=== PATIENT | female | born 1955 | race Caucasian/White ===

== ENCOUNTER 2018-04-23 08:01 | Inpatient (IN) ==
--- NOTE | 2018-04-23 07:17 | Anesthesia Evaluation PreOp ---
Date of Encounter: 04/23/18 Time of Encounter: 08:24 - Past History Planned Operation: Right reverse total shoulder Cardiac History: HTN Pulmonary History: Former smoker, COPD BUDGET COORDINATOR History: Other (anxiety depression) Other Medical History: Thyroid (hypo), Other (obesity BMI 38) Anesthesia History: No Prior Anesthetic Complications, Past Anesthesia (bilateral total knee, left total hip c section,) : No Alcohol Use: occasionally Drug use: none Medications and Allergies Docusate [Colace] 100 mg PO BID 10 Days #20 capsule 04/22/18 [Rx] OxyCODONE Immed Rel [Roxicodone 5 MG] 5 mg PO Q6HR PRN 7 Days #28 tablet 04/22/18 [Rx] Allergy/AdvReac Type Severity Reaction Status Date / Time codeine AdvReac See Verified 04/11/18 10:47 Comments - Meds/Allergy Pre-op Review Medications Reviewed: Yes Allergies Reviewed: Yes Beta Blockers on Current Med List: Yes (Nadolol ) If Beta Blockers taken, Date/Time (Last Dose taken): 0500 Anesthesia Results - Labs Laboratory Tests 04/11/18 04/11/18 04/11/18 10:55 10:55 10:55 WBC 5.7 Hgb 14.3 Hct 42.5 Plt Count 199 PT 10.7 INR 1.0 APTT 33.2 Sodium 134 L Potassium Chloride 99 Carbon Dioxide 30 H BUN 9 Creatinine 0.77 Est GFR (Non-Af Amer) > 60 04/12/18 10:44 WBC Hgb Hct Plt Count PT INR APTT Sodium Potassium 5.2 H Chloride Carbon Dioxide BUN Creatinine Est GFR (Non-Af Amer) - Imaging EKG: report reviewed (SINUS RHYTHM) Anesthesia Exam Vital Signs/O2 Sat/Glucose, Most Recent Temp Pulse Resp BP Pulse Ox 97.5 F L 56 18 126/73 97 04/23/18 08:23 04/23/18 08:23 04/23/18 08:23 04/23/18 08:23 04/23/18 08:23 Weight: 77 kg NPO (# of Hours): > 8 hr - HEENT Pupil (Motor): Pupils equal Mallampati: II Teeth: Normal Oral Opening: Greater than 3 - BUDGET COORDINATOR LOC: Oriented BUDGET COORDINATOR Motor: Normal RUE, Normal LUE, Normal RLE, Normal LLE, Normal Face BUDGET COORDINATOR Sensory: Normal: RUE, LUE, RLE, LLE, Face - Cardiac Rhythm: Regular Murmur: None - Pulmonary Breath Sounds: bilateral Clear Respiratory Effort: Symmetrical Anesthesia Assess/Plan ASA Score: 3 (COPD, HTN) Level of consciousness: Cooperative, Oriented Anesthetic Plan: General, Regional Nerve Block Regional Nerve Block Plan: Supraclavicular, Supracervical Plexus, Intercostobracial Monitoring Plan: Standard Monitors Recovery Plan: PACU
--- NOTE | 2018-04-23 08:07 | History & Physical Report ---
Date of Encounter: 04/23/18 Time of Encounter: 08:07 24 Hour HP Update - Instructions Instructions: If the History and Physical is less than 30 days old and was completed prior to A.M. admission and or procedure and has NOT been updated on calendar day of procedure please complete this update prior to performing procedure. - Update Patient reports changes in Medical Condition: No Changes in examination, assessment, or condition: No Changes in Medication: No Preop tests/diagnostics Reviewed: Yes Surgery Remains Indicated: Yes Consent for Planned Operative Procedure(s) Verified: Yes - Pre-Operative Checklist Preoperative Checklist Indicated: No Prophylactic Antibiotic Ordered: Yes Is VTE Prophylaxis Indicated?: Yes
[2018-04-23] MEDS ORDERED: *HR* Promethazine 25 MG/ML VIAL IVP PRN (08:45)
[2018-04-23] MEDS ORDERED: Ringers Solution, Lactated 1,000 ML IVC SCH ×2 (08:45→11:49)
[2018-04-23] MEDS ORDERED: *HR* OxyCODONE Immed Rel 5 MG TABLET PO PRN (08:45)
[2018-04-23] MEDS ORDERED: Ondansetron 4 MG/2 ML VIAL IVP ONE (08:45)
[2018-04-23] MEDS ORDERED: Ketorolac 15 MG/ML VIAL IVP ONE (08:45)
[2018-04-23] MEDS ORDERED: *HR* HYDROmorphone (PF) 1 MG/ML SYRINGE IVP PRN (08:45)
[2018-04-23] MEDS ORDERED: Acetaminophen IV 1,000 MG/100 ML INFUS..BTL IVPB ONE (08:46)
[2018-04-23] MEDS ORDERED: Famotidine 20 MG/2 ML VIAL IVP ONE (08:46)
[2018-04-23] MEDS ORDERED: Acetaminophen IV 1,000 MG/100 ML INFUS..BTL ONE (08:50)
[2018-04-23] MEDS ORDERED: Famotidine 20 MG/2 ML VIAL ONE (08:50)
--- NOTE | 2018-04-23 09:14 | Discharge Summary ---
- NOTES TO OUTPATIENT PROVIDER Notes to Outpatient Provider: Needs to have sodium rechecked on 04/25/18 and follow up with PCP this week for further management. Orders not resulted at time of discharge: Pending orders 04/23/18 00:01 XR shoulder complete RT [XR] Routine H/H [Hemoglobin and Hematocrit] [HEME] Routine 04/23/18 07:18 US anesthesia pain block [US] Routine Date of Encounter: 04/24/18 Time of Encounter: 12:50 - Discharge Diagnosis (1) Status post reverse total arthroplasty of right shoulder Priority: Primary Status: Acute (2) Unspecified rotator cuff tear or rupture of right shoulder, not specified as traumatic Priority: Primary Status: Acute Qualifiers: Rotator cuff tear extent: unspecified tear extent Qualified Code(s): M75.101 - Unspecified rotator cuff tear or rupture of right shoulder, not specified as traumatic (3) Hypertension Priority: Secondary Status: Acute Qualifiers: Hypertension type: unspecified Qualified Code(s): I10 - Essential (primary) hypertension (4) Hypothyroidism Priority: Secondary Status: Acute Qualifiers: Hypothyroidism type: unspecified Qualified Code(s): E03.9 - Hypothyroidism, unspecified (5) Obesity (BMI 30-39.9) Priority: Secondary Status: Acute (6) Anxiety and depression Priority: Secondary Status: Acute - Hospital Course Hospital course: Ms. Hernandez is a 63 year old female status post right Total Shoulder Replacment Reverse 04/23/18 with history of rotator cuff tear, HTN, hypothyroidism, depression/anxiety. She also has h/o bilateral TKR which she states has caused a leg length discrepancy and a limp from this. She typically uses a cane. Therapist this morning noted patient was unsteady on her feet and originally recommended ECF placement for further rehab. On reevaluation this afternoon therapist changed recommendations to home therapy as she is progressing back to her baseline gait and her will be available to help her. I did discuss with her at length the risks if she would fall and she expressed understanding but is adamant that she go home with home therapy. Based on therapists updated recommendations she is stable for discharge home. There was a delay this morning in labs being drawn. On review Na noted to be 127, it was 134 preoperatively. She is not symptomatic at this time, no evidence of confusion. I recommended to patient that she should stay overnight with this low of a Na level for further observation and reviewed the risks. She states she understood the risks and states she chronically has issues with low Na. She is again adamant that she will not stay another night. I discussed this with Dr. Stock who is agreeable to the patient leaving. She will receive a dose of Na before leaving and a script to continue Na. Will have HH recheck her Na tomorrow and will set up follow up appt with PCP this week for further management. Patient seen at bedside, without complaints other than very upset about original recommendation for ECF, again adamant that she wants to go home and will not stay another night. A&O x 3 Afebrile, vital signs stable. Labs reviewed. H/H - 12.1/36.3. Na 127 asymptomatic Pain control: adequate Participating in PT. All questions and concerns addressed. Educated on use of incentive spirometer. Encouraged ambulation and proper hydration. Patient educated on post-operative restrictions and post-operative care. Assessment and plan: Continue with postoperative care Discharge plan: Home with home therapy, discharge today. - Time Spent with Patient Total time spent providing and/or coordinating discharge services: - Discharge Medications Home Medications: Docusate [Colace] 100 mg PO BID 10 Days #20 capsule 04/22/18 [Rx] OxyCODONE Immed Rel [Roxicodone 5 MG] 5 mg PO Q6HR PRN 7 Days #28 tablet [Rx] Albuterol Sulfate [Albuterol Inhaler] 2 puff IH Q4HR PRN 04/23/18 [History] Aspirin 325 mg PO DAILY 04/23/18 [History] Chlordiazepoxide [Librium] 10 mg PO HS 04/23/18 [History] Chlordiazepoxide [Librium] 20 mg PO DAILY 04/23/18 [History] DiphenhydraMINE [Benadryl] 25 mg PO HS 04/23/18 [History] Ipratropium/Albuterol Neb [Duoneb] 3 ml IH Q6HR PRN 04/23/18 [History] Levothyroxine [Synthroid] 125 mcg PO 0630 04/23/18 [History] Lisinopril [Zestril] 40 mg PO DAILY 04/23/18 [History] Nadolol [Corgard] 40 mg PO QPM 04/23/18 [History] Naproxen [Naprosyn] 250 mg PO BID 04/23/18 [History] Paroxetine [Paxil] 30 mg PO DAILY 04/23/18 [History] Sodium Chloride [Sodium Chloride Tab] 1 gm PO DAILY tablet 04/24/18 [Rx] Allergies/Adverse Reactions: Allergy/AdvReac Type Severity Reaction Status Date / Time No Known Allergies Allergy Verified 04/23/18 08:52 Date of admission: 04/23/17 Primary care physician: Carlos Grace MD Discharging clinician: Mani Stock Anticipated date of discharge: 04/24/18 - Patient Status Disposition: Home Health Service Condition: Good Functional capacity at discharge: uses cane/walker Overall status at discharge: patient is back to baseline - Discharge Instructions Follow Up With: Carlos Grace MD [Primary Care Provider] - - Diet and Activity Activity: ambulate only with your walker (cane) Diet: advance to your usual diet
--- NOTE | 2018-04-23 09:36 | Anesthesia Procedures ---
Date of Encounter: 04/23/18 Time of Encounter: 09:32 Procedures: Anesthesia - Nerve Block Procedure Date: 04/23/18 Time: 09:32 Allergies/Adv Reactions: No Known Allergies Allergy (Verified 04/23/18 08:52) Pre-op Diagnosis: right shoulder rotator cuff arthropathy Surgical Procedure: right shoulder reverse ball Checklist: Correct Patient Identifier, Correct procedure, History checked Correct side: Right Blood Thinner: No Monitor Applied: EKG, BP, Pulse Oximetry Supplemental Oxygen via Nasal Cannula (L/min): 2 Sedation: Versed (mg): 2 Sedation: Fentanyl (mcg): 100 Indication: Post Op Analgesia Pre-op Neuro Deficits: No Block Type: Supraclavicular (30cc 0.5% ropi), Other (SCP 10cc 0.25% bupivicaine with clonidine) Catheter placed: No Sterile Technique: Yes Ultrasound used: Yes Anatomy identified: Yes Visual spread of Local: Yes Neuro Stimulation: No Blood on Needle Aspiration: No Smooth Injection of Local: Yes Pain with Injection of Local: No Prep: Chlorhexadine Needle: 22 x 50 mm Stimuplex Local: 0.25% Bupivicaine w/Clonidine 20 mcg/cc, Ropivacaine Volume (cc): 40 Number of Attempts: 1 Complications: None/effective block
[2018-04-23] MEDS ORDERED: EPHEDrine 50 MG/ML VIAL ONE (09:49)
--- NOTE | 2018-04-23 10:46 | Orthopedic Operative Note ---
Date of procedure: 04/23/18 Pre-op diagnosis: Right shoulder cuff tear arthropathy Post-op diagnosis: same Procedure: Procedure: Total Shoulder Replacment Reverse, right Estimated blood loss: 50 cc Hardware: Metal and polyethylene replacement: Arthrex 28, +2 , 30 mm screw glenoid baseplate, 4 locking 5.5 screw, 42+4 glenosphere, 12 apex humeral stem, poly insert 6 Exam Under anesthesia: Full motion no instability Procedural Notes: Irreparable tear subscap supraspinatus Operative procedure: The patient was brought to the operating room and placed on the operating room table. After general anesthesia was administered the operative shoulder was examined. Findings were noted. The patient was placed in the modified beachchair position. All pressure points were padded appropriately. And the head was stabilized in the neutral position. The operative extremity was prepped and draped in the sterile surgical fashion. The patient received IV antibiotics prior to skin incision. A standard deltopectoral approach was made to the operative shoulder. Incision was made to the skin and subcutaneous tissue,hemo stasis was obtained with Bovie cautery. Using careful blunt dissection the cephalic vein was identified and mobilized medially. The deltopectoral interval was developed and the clavipectoral fascia was incised. The subscap was irreparable. The humerus was dislocated patient noted to have irreparable tear supraspinatus tendon, and the humeral cut was made along the anatomic neck. Anterior and posterior Bankart retractors were placed to expose the glenoid. The glenoid guide was seated and the centering hole was made. It was reamed with the appropriate reamer. The 28, +2, 30 mm screw, baseplate was seated and secured with 4 locking 5.5 screw. The baseplate was irrigated and dried and the 42+4 Glenosphere was seated and secured with the Sosa taper. The Sosa taper was tested and found to be secure, glenosphere fixation was secondarily secured with the central screw. The humerus was redislocated and prepared with the diaphyseal reamers, followed by a broaching process up to the appropriate size 12 apex in the patient's anatomic version. The metaphyseal reamer was then utilized. Trial reduction found the shoulder to be relocatable. Trial components were removed and 12 apex stem was impacted in place in the patient's anatomic version. Trial reduction found the shoulder to be relocatable and stable with the appropriate 6. Trial component was removed and the real implant was seated and secured the shoulder was reduced. The shoulder had excellent motion and excellent stability and no evidence of dislocation. The deep tissue was irrigated with pulse irrigation. The PA close the shoulder. The deltopectoral interval was closed with a running #1 PDS suture, subcutaneous tissue was irrigated and closed with 0 PDS suture, the skin was closed with Dermabond. The patient was placed in a sterile dressing, abduction brace and extubated. The patient was then transferred to the recovery room in stable condition. Anesthesia: YNES Surgeon: Mani Stock Was there an patient assistant present: Yes Field Supervisor: Holly Evans Estimated blood loss (cc): 50 Condition: stable Disposition: PACU
[2018-04-23 11:28] LABS: Hematocrit 41.2 % (35.3-44.9); Hemoglobin 13.4 g/dL (11.5-15.4)
--- NOTE | 2018-04-23 11:37 | Anesthesia Evaluation Post Op ---
Date of Encounter: 04/23/18 Time of Encounter: 11:36 - Vital Signs Vital Signs: Vital Signs/O2 Sat/Glucose, Most Recent Temp Pulse Resp BP Pulse Ox 97.4 F L 61 16 151/76 98 04/23/18 11:10 04/23/18 11:20 04/23/18 11:20 04/23/18 11:20 04/23/18 11:20 - Lungs Lungs: Clear Ascult./Percussion - Airway Airway: Non-obstructed - Cardiovascular Regular Rate - Mental Status Mental Status: Alert & Oriented, Answers Appropriately - Pain Pain Scale: 0 - Nausea Vomiting Nausea Vomiting: Not Present - Hydration Hydration: NPO - Discharge PostOp Status: Transfer Patient to floor
[2018-04-23] MEDS ORDERED: MOM Conc 10 ML UD.LIQ PO PRN (11:49)
[2018-04-23] MEDS ORDERED: Sennosides 8.6 MG TABLET PO PRN (11:49)
[2018-04-23] MEDS ORDERED: Naloxone 0.4 MG/ML INJ IVP PRN (11:49)
[2018-04-23] MEDS ORDERED: Temazepam 15 MG CAPSULE PO PRN (11:49)
[2018-04-23] MEDS ORDERED: Ondansetron 4 MG/2 ML VIAL IVP PRN (11:49)
[2018-04-23] MEDS ORDERED: Ipratropium/Albuterol Neb 3 ML IH PRN (11:49)
[2018-04-23] MEDS ORDERED: *HR* OxyCODONE/APAP 5/325 TABLET PO PRN (11:49)
[2018-04-23] MEDS: traMADol 50 MG TABLET PO PRN ×2 (14:56→20:57)
--- NOTE | 2018-04-23 15:56 | Physician Discharge Referral ---
Home Health/Hosp Referral Info Transfer to: Home Health (NEED SODIUM RECHECKED TOMORROW AND FOLLOW UP WITH PCP THIS WEEK) Attending Provider: Montrell - Diagnosis (1) Status post reverse total arthroplasty of right shoulder Priority: Primary Status: Acute (2) Unspecified rotator cuff tear or rupture of right shoulder, not specified as traumatic Priority: Primary Status: Acute (3) Hypertension Priority: Secondary Status: Acute (4) Hypothyroidism Priority: Secondary Status: Acute (5) Obesity (BMI 30-39.9) Priority: Secondary Status: Acute (6) Anxiety and depression Priority: Secondary Status: Acute - Respiratory Orders None Smoking Cessation: Smoking cessation has been advised. For more information, call the [place] Tobacco Quit Line at 3-988-XSFC-NOW. - Diet/Nutrition Diet/Nutrition Orders: Regular - Activity Activity Orders: Up ad peyman, Ambulate, Chair - Services Needed Following services are medically necessary services: Nursing, Home Health Aide, Physical Therapy, Occupational Therapy Home Care Orders: Recheck sodium on 04/25/18, needs to follow up with PCP this week. Opsite dressing, leave intact until first post-operative visit. Zipline/[place] in place, plan to remove at post-operative day #14-16. If dressing becomes >50% saturated, contact office, remove dressing and place appropriate dressing in its place. Do not allow for dressing to get wet. Shoulder Precautions x 6 weeks. Apply cold therapy wrap 3-6x/day for 20 minutes at a time. Encourage ambulation throughout the day. Use Incentive spirometer 10x/hour. Elevate affected extremity above heart as tolerated. NWB to affected upper extremity x 6 weeks. Will remove brace at first post-operative appointment. OK to remove during PT/OT and Home exercises. - Transfer Medications Home Medications: Docusate [Colace] 100 mg PO BID 10 Days #20 capsule 04/22/18 [Rx] OxyCODONE Immed Rel [Roxicodone 5 MG] 5 mg PO Q6HR PRN 7 Days #28 tablet 04/22/18 [Rx] Albuterol Sulfate [Albuterol Inhaler] 2 puff IH Q4HR PRN 04/23/18 [History] Aspirin 325 mg PO DAILY 04/23/18 [History] Chlordiazepoxide [Librium] 10 mg PO HS 04/23/18 [History] Chlordiazepoxide [Librium] 20 mg PO DAILY 04/23/18 [History] DiphenhydraMINE [Benadryl] 25 mg PO HS 04/23/18 [History] Ipratropium/Albuterol Neb [Duoneb] 3 ml IH Q6HR PRN 04/23/18 [History] Levothyroxine [Synthroid] 125 mcg PO 0630 04/23/18 [History] Lisinopril [Zestril] 40 mg PO DAILY 04/23/18 [History] Nadolol [Corgard] 40 mg PO QPM 04/23/18 [History] Naproxen [Naprosyn] 250 mg PO BID 04/23/18 [History] Paroxetine [Paxil] 30 mg PO DAILY 04/23/18 [History] Sodium Chloride [Sodium Chloride Tab] 1 gm PO DAILY tablet 04/24/18 [Rx] Allergies/Adverse Reactions: Allergy/AdvReac Type Severity Reaction Status Date / Time No Known Allergies Allergy Verified 04/23/18 08:52 Certification: Further, I certify that my clinical findings support that this patient is homebound (i.e. absences from home require considerable and taxing effort and are for medical reasons or adventism services or infrequently or short duration when for other reasons) because: Homebound Reason: Post-surgery restriction and or conditions limit ability to leave home Attestation: My signature below is to certify that this patient is under my care and that I, or nurse practitioner, or a physician commercial lending assistant working with me, has a [id number] encounter with this patient.
[2018-04-23] MEDS ORDERED: *HR* Enoxaparin 30 MG/0.3 ML SYRINGE SQ SCH (18:00)
[2018-04-23] MEDS: *HR* Enoxaparin 30 MG/0.3 ML SYRINGE SQ SCH (18:41)
[2018-04-24] MEDS: *HR* Enoxaparin 30 MG/0.3 ML SYRINGE SQ SCH (06:08)
--- NOTE | 2018-04-24 06:46 | Orthopedics Progress Note ---
Date of Encounter: 04/24/18 Time of Encounter: 06:45 Subjective Interval history: Patient was seen this morning doing well without complaints. Afebrile vital signs stable. Operative extremity: Neurovascularly intact Dressing clean dry and intact Calves nontender Assessment and plan: Continue with postoperative care Plan for discharge today Objective Vital signs: Vital Signs Temp Pulse Resp BP Pulse Ox 04/24/18 04:33 18 99 04/24/18 04:18 97.5 F L 58 16 147/85 99 04/23/18 23:55 98.2 F 55 16 124/55 99 04/23/18 19:58 97.5 F L 60 17 146/79 96 04/23/18 14:00 97.5 F L 60 16 105/54 95 04/23/18 11:52 62 16 97/65 96 04/23/18 11:30 97.4 F L 61 16 141/68 97 04/23/18 11:20 61 16 151/76 98 04/23/18 11:10 97.4 F L 62 16 138/74 98 04/23/18 11:00 62 16 134/72 98 04/23/18 10:50 68 16 125/109 98 04/23/18 10:40 97.9 F 65 16 167/82 100 04/23/18 09:30 54 18 131/85 93 04/23/18 09:20 53 18 127/74 94 04/23/18 09:09 54 18 113/47 95 04/23/18 08:57 53 18 131/64 94 04/23/18 08:23 97.5 F L 56 18 126/73 97 Intake and Output 04/23/18 04/23/18 04/24/18 15:59 23:59 07:59 Intake Total 440 / 440 Output Total 50 / 50 Balance -50 / -50 440 / 440 Intake: IV Fluids 100 / 100 Ancef 2,000 MG In 0.9 % Sodium 100 / 100 Chloride 100 ML @ 200 mls/hr IVPB Q8HR MCKENZIE Rx#:[id number] Oral 340 / 340 Output: Estimated Blood Loss 50 / 50 Other: Meal Dinner Percent of Meal Consumed 25% # Voids 1 Weight 77.111 kg 80.1 kg - Labs CBC & BMP: 04/23/18 11:01 Consult Discharge Plan - Plan Referrals: Carlos Grace MD [Primary Care Provider] -
[2018-04-24] MEDS: *HR* OxyCODONE Immed Rel 5 MG TABLET PO PRN ×2 (08:23→13:15)
[2018-04-24] MEDS ORDERED: Aspirin 325 MG TABLET PO SCH (09:00)
[2018-04-24] MEDS ORDERED: Lisinopril 20 MG TABLET PO SCH (09:00)
--- NOTE | 2018-04-24 09:56 | Physician Discharge Referral ---
ExtendedCare Referral Info Transfer To: [facility] Provider in Charge: Montrell - Diagnosis (1) Status post reverse total arthroplasty of right shoulder Priority: Primary Status: Acute (2) Unspecified rotator cuff tear or rupture of right shoulder, not specified as traumatic Priority: Primary Status: Acute (3) Hypertension Priority: Secondary Status: Acute (4) Hypothyroidism Priority: Secondary Status: Acute (5) Obesity (BMI 30-39.9) Priority: Secondary Status: Acute (6) Anxiety and depression Priority: Secondary Status: Acute Expected Duration of Placement: <30 days Prognosis: Good Aware of Diagnosis: Patient Aware of Prognosis: Patient - Transfer Medications Home Medications: Docusate [Colace] 100 mg PO BID 10 Days #20 capsule 04/22/18 [Rx] OxyCODONE Immed Rel [Roxicodone 5 MG] 5 mg PO Q6HR PRN 7 Days #28 tablet 04/22/18 [Rx] Albuterol Sulfate [Albuterol Inhaler] 2 puff IH Q4HR PRN 04/23/18 [History] Aspirin 325 mg PO DAILY 04/23/18 [History] Chlordiazepoxide [Librium] 10 mg PO HS 04/23/18 [History] Chlordiazepoxide [Librium] 20 mg PO DAILY 04/23/18 [History] DiphenhydraMINE [Benadryl] 25 mg PO HS 04/23/18 [History] Ipratropium/Albuterol Neb [Duoneb] 3 ml IH Q6HR PRN 04/23/18 [History] Levothyroxine [Synthroid] 125 mcg PO 0630 04/23/18 [History] Lisinopril [Zestril] 40 mg PO DAILY 04/23/18 [History] Nadolol [Corgard] 40 mg PO QPM 04/23/18 [History] Naproxen [Naprosyn] 250 mg PO BID 04/23/18 [History] Paroxetine [Paxil] 30 mg PO DAILY 04/23/18 [History] Allergies/Adverse Reactions: Allergy/AdvReac Type Severity Reaction Status Date / Time No Known Allergies Allergy Verified 04/23/18 08:52 - Respiratory Orders None Smoking Cessation: Smoking cessation has been advised. For more information, call the [place] Tobacco Quit Line at 7-225-MMMC-NOW. - Ancillary Orders May use pressure relief devices daily prn, May go on IVAN w/family/respon alliance party w/meds at nurse discretion PRN, May consult with Dentist, Punch Press Operator, Exhibit Technician PRN - Advance Directives Code Status: Full Code - Mobility Orders Chair, Ambulate - Rehabiliation Orders Rehab Potential: Good Rehab Orders: Evaluation for Physical Therapy, Evaluation for Occupational Therapy Other: Opsite dressing, leave intact until first post-operative visit. Zipline/[place] in place, plan to remove at post-operative day #14-16. If dressing becomes >50% saturated, contact office, remove dressing and place appropriate dressing in its place. Do not allow for dressing to get wet. Shoulder Precautions x 6 weeks. Apply cold therapy wrap 3-6x/day for 20 minutes at a time. Encourage ambulation throughout the day. Use Incentive spirometer 10x/hour. Elevate affected extremity above heart as tolerated. NWB to affected upper extremity x 6 weeks. Will remove brace at first post-operative appointment. OK to remove during PT/OT and Home exercises. - Treatments Skin tear care topically daily PRN per policy - Diet Orders Regular CERTIFICATION: I certify that the transfer of the above named patient to an Extended Care Facility is necessary for the continuing treatment of the diagnosis listed. The above information is true and accurate reflection of patient's current condition. Confidential - Redisclosure prohibited without a patient's written consent.
[2018-04-24 10:59] VITALS: BP 108/70
[2018-04-24 11:48] LABS: Hematocrit 36.3 % (35.3-44.9); Hemoglobin 12.1 g/dL (11.5-15.4)
[2018-04-24 12:04] LABS: BUN/Creatinine Ratio 15 (6-26); Blood Urea Nitrogen 10 mg/dL (8-23); Calcium 8.7 mg/dL (8.6-10.3); Carbon Dioxide 28 mEq/L (23-29); Chloride 94 mEq/L (98-107); Glucose 121 mg/dL (70-105); Osmolality,Calculated 264 (280-300); Sodium 127 mEq/L (136-145); eGFR For Non-African Americans > 60 (> 60)
== END 2018-04-24 16:20 | disposition home health service (06) | DRG 483 ==
LOC: SAMDAY 08:01 → 3NENU 12:41
PROVIDERS: ADMIT Orthopaedic Surgery; ATTEND Orthopaedic Surgery

== ENCOUNTER 2018-11-07 14:23 | Inpatient (IN) ==
--- NOTE | 2018-11-08 00:58 | Internal Med History&Physical ---
<Carlos Burroughs - Last Filed: 11/08/18 04:17> Date of Encounter: 11/08/18 Time of Encounter: 01:53 Internal Medicine - H&P: HPI Chief complaint: fall Admitted From: Emergency Dept Plans for Post Hospital Care: Transfer Group Home Facility History of present illness: Ms. Hernandez is a 63 year old female with past medical history of hypertension, hyperlipidemia, hypothyroid, anxiety, depression. She presents to [place] following a fall. Patient was vacationing in [place] and reports a mechanical fall after misplacing her footing stepping on some rocks. Patient was seen in the [place] emergency room and was recommended transfer as she would require orthopedics for multiple fractures. Patient has seen in the past and requested transfer back to [place]. She is a [place] of [place], [place]. Patient states that the fall occurred 2 days ago. Patient denies any preceding symptoms of lightheadedness, dizziness, nausea, vomiting, palpitations, chest pain, difficulty breathing. She states she fell on her right side and had subsequent immediate onset pain. She states that she initially did have some numbness and tingling in her right foot but this has since resolved. She also states that she was previously instructed to walk with a cane however stopped using it as she felt she was doing better. Patient does have a history of multiple previous fractures including left hip as well as a right shoulder total reverse replacement in April 2018. In the [place] emergency room, laboratory results were significant for a hemoglobin of 115 mmol, WBC of 11.5 which was trended to 6.8, K of 4.4, Glucose of 5.8 mmol, GFR 76, Troponin <3. Imaging results showed a chest x-ray with no acute process in bilateral previous shoulder replacements. Pelvic x-ray showed impacted mildly displaced right femoral neck fracture with Coxa valga. Shoulder x-ray showed displaced angulated fracture of proximal humeral shaft. Elbow x- ray was unremarkable. She was given 1 dose of Lovenox as well as morphine. Home medications include Paxil, aspirin, Synthroid, lisinopril. She states she does not have formal diagnosis of COPD but does take home inhalers. At time of my interview, patient's pain is currently a 3/10. She is denying any numbness, tingling, fevers, chills, recent illness. Patient denies any complaints of exertional chest pains. She denies any history of coronary artery disease. No previous workup. Past medical history: As above Past surgical history: , multiple orthopedic, tonsillectomy Social history: Former smoker, quit in 2007, admits to 3 daily beers, denies drug use Family history: Noncontributory Past Med Surg Social Fam HX - Past Medical History Medical history: hypertension, kidney stones, seizures Additional medical history: depression,anxiety,hypothyroid Psychiatric history: anxiety, depression - Past Surgical History Surgical History: , cataract, hysterectomy Additional surgical history: bilateral knee replacement,cubital tunnel surgery left elbow,tonsillectomy,left hip,foot surgery,left hip replacement - Social History Smoking Status: Former smoker Smokeless Tobacco Status: No Alcohol use: occasionally Drug use: none Internal Medicine - H&P: Meds Albuterol Sulfate [Proventil Inhaler] 2 puff IH Q4HR PRN 04/23/18 [History] Aspirin 325 mg PO DAILY 04/23/18 [History] Chlordiazepoxide [Librium] 20 mg PO HS 04/23/18 [History] Chlordiazepoxide [Librium] 30 mg PO DAILY 04/23/18 [History] DiphenhydraMINE [Benadryl] 25 mg PO HS 04/23/18 [History] Ipratropium/Albuterol Neb [Duoneb] 3 ml IH Q6HR PRN 04/23/18 [History] Levothyroxine [Synthroid] 125 mcg PO 0630 04/23/18 [History] Lisinopril [Zestril] 40 mg PO DAILY 04/23/18 [History] Naproxen [Naprosyn] 250 mg PO BID 04/23/18 [History] Paroxetine [Paxil] 30 mg PO DAILY 04/23/18 [History] Allergy/AdvReac Type Severity Reaction Status Date / Time No Known Allergies Allergy Verified 04/23/18 08:52 All Systems PM: A 10-system review of systems was performed and is negative for pertinent findings except as documented above in the HPI. Review of systems: - Constitutional: Denies fevers, chills, weight loss, generalized fatigue - Head/Neck: Denies GONZALEZ, neck stiffness - EENT: Denies vision changes/blurriness, rhinorrhea, congestion, sore throat - CVS: Denies chest pain, palpitations, ROBISON, orthopnea, edema, PND, - Pulm: Denies SOB, cough, sputum, hematemesis, wheezing - GI: Denies abdominal pain, anorexia, nausea, vomiting, diarrhea, constipation, melena - : Denies dysuria, increased frequency, urgency, hematuria, - Heme: Denies ease of bleeding or bruising - MSK: Admits to hip and shoulder pain - Skin: Denies rashes, ulcers, color changes, - Neuro: Denies GONZALEZ, paresthesias, focal deficits, ataxia, - Constitutional Exam: Gen.: Vitals noted. No acute distress. AAOx3 HEENT: PERRL/EOMI, oropharynx clear, Normocephalic, atraumatic, MMM Cardiac: RRR, no murmur, +S1/S2 Pulmonary: Faint wheezes, otherwise CTA bilaterally, no wheezes, rales or rhonchi, equal chest expansion Abdomen: soft, nontender, BS noted, no guarding, no rebound. MSK: ROM intact in all extremities. Hip and shoulder not assessed due to fracture, no joint swelling noted. Good distal pulses. Extremities: no BLE edema, nontender calf, no cyanosis or clubbing Neuro: A&Ox3, moves all extremities, no focal deficits, sensation intact. Psych: Appropriate mood and behavior Internal Med - H&P Results - Labs CBC & Chem 7: 11/08/18 02:16 11/08/18 02:16 - Assessment and Plan (1) Right humeral fracture Current Visit: Yes Status: Acute Assessment and plan: - As noted on Xray in outside ED. - Mechanical in nature, patient denies any presyncopal symptoms - No history of CAD, arrythmias - Neurovascularly intact Plan - Will consult Dr. Stock - NPO - Pain control - Will obtain EKG for pre operative evaluation. Qualifiers: Encounter type: initial encounter Humerus Location: proximal Fracture type: closed Fracture morphology: unspecified fracture morphology Qualified Code(s): S42.201A - Unspecified fracture of upper end of right humerus, initial encounter for closed fracture (2) Closed right hip fracture Current Visit: Yes Status: Acute Assessment and plan: - As noted on Xray in outside ED. - Mechanical in nature, patient denies any presyncopal symptoms - No history of CAD, arrythmias - Neurovascularly intact Plan - Will consult Dr. Stock - NPO - Pain control Qualifiers: Encounter type: initial encounter Qualified Code(s): S72.001A - Fracture of unspecified part of neck of right femur, initial encounter for closed fracture (3) Anxiety and depression Current Visit: Yes Status: Acute Assessment and plan: continue home meds (4) Hypertension Current Visit: Yes Status: Acute Assessment and plan: well controlled continue home meds Qualifiers: Hypertension type: essential hypertension Qualified Code(s): I10 - Essential (primary) hypertension (5) Hypothyroidism Current Visit: Yes Status: Chronic Assessment and plan: continue synthroid reports no symptoms Qualifiers: Hypothyroidism type: unspecified Qualified Code(s): E03.9 - Hypothyroidism, unspecified (6) Obesity (BMI 30-39.9) Current Visit: Yes Status: Chronic Assessment and plan: chronic (7) Alcohol abuse Current Visit: Yes Status: Acute Assessment and plan: - Admits to 3 daily beers - Denies former withdrawal - Monitor for further signs, low threshold for CIWA protocol - Resume home librium (8) DVT prophylaxis Current Visit: Yes Status: Acute Assessment and plan: - Will hold for anticipated surgery. Received lovenox prior to transfer - Time Spent With Patient Total time spent is greater than 50% in coordination of care (as documented) at patient's floor/unit and/or counseling patient: <CorinneCortes Ciera - Last Filed: 11/08/18 07:27> Date of Encounter: 11/08/18 Internal Medicine - H&P: HPI History of present illness: Ms. Hernandez is a 63 year old female All Systems PM: A 10-system review of systems was performed and is negative for pertinent findings except as documented above in the HPI. - Constitutional Vitals: Temp Pulse Resp BP Pulse Ox 98.1 F 76 16 121/74 96 11/08/18 07:08 11/08/18 07:08 11/08/18 07:08 11/08/18 07:08 11/08/18 07:08 Internal Med - H&P Results - Labs CBC & Chem 7: 11/08/18 02:16 11/08/18 02:16 Labs: Short CBC 11/08/18 Range/Units 02:16 WBC 9.6 (4.3-11.1) K/mcL Hgb 11.6 (11.5-15.4) g/dL Hct 35.9 (35.3-44.9) % Plt Count 138 L (140-400) K/mcL Neutrophils # 7.8 (1.6-8.9) K/mcL BMP 11/08/18 02:16 Sodium 130 L Potassium 4.8 Chloride 103 Carbon Dioxide 21 L BUN 12 Creatinine 0.86 Glucose 128 H Calcium 8.5 L - Time Spent With Patient Total time spent is greater than 50% in coordination of care (as documented) at patient's floor/unit and/or counseling patient: - Attending Attestation I saw and evaluated the patient. I reviewed the residents note, performed my own physical examination and agree with findings and plan as documented in the residents note. Patient seen and examined on 11/08/18. Patient presented from [facility] after sustaining a fall. Dr. Stock of orthopedic surgery notified regarding humerus and femoral fractures. Follow up recommendations.
[2018-11-08] MEDS ORDERED: Ondansetron 4 MG/2 ML VIAL IVP PRN (01:44)
[2018-11-08] MEDS ORDERED: Naloxone 0.4 MG/ML INJ IVP PRN (01:44)
[2018-11-08] MEDS ORDERED: 0.9 % Sodium Chloride 1,000 ML IVC SCH (01:45)
[2018-11-08] MEDS ORDERED: Ipratropium/Albuterol Neb 3 ML IH PRN (01:48)
[2018-11-08 02:40] LABS: Basophils % 0.3 %; Eosinophils # 0.2 K/mcL (0.0-0.6); Eosinophils % 1.8 %; Hematocrit 35.9 % (35.3-44.9); Hemoglobin 11.6 g/dL (11.5-15.4); Immature Granulocytes % 0.3 % (0-4); Lymphocytes # 1.1 K/mcL (0.6-4.6); Mean Corpuscular HGB Conc 32.3 g/dL (31.6-35.5); Mean Corpuscular Volume 99.2 fL (83.0-100.0); Mean Platelet Volume 10.3 fL (9.4-12.4); Monocytes # 0.5 K/mcL (0.0-1.3); Monocytes % 5.5 %; Neutrophils # 7.8 K/mcL (1.6-8.9); Platelet Count 138 K/mcL (140-400); Red Blood Count 3.62 M/mcL (3.82-4.97); Red Cell Distribution Width 12.5 % (11.5-14.5); Segmented Neutrophils % 81.1 %; White Blood Count 9.6 K/mcL (4.3-11.1)
[2018-11-08 02:46] LABS: Prothrombin Time 11.5 Seconds (9.4-12.1)
[2018-11-08 02:49] LABS: Activated Partial Thrombo Time 31.3 Seconds (26.0-36.0)
[2018-11-08 02:52] LABS: BUN/Creatinine Ratio 14 (6-26); Blood Urea Nitrogen 12 mg/dL (8-23); Calcium 8.5 mg/dL (8.6-10.3); Carbon Dioxide 21 mEq/L (23-29); Chloride 103 mEq/L (98-107); Glucose 128 mg/dL (70-105); Osmolality,Calculated 271 (280-300); Potassium 4.8 mEq/L (3.5-5.1); Sodium 130 mEq/L (136-145); eGFR For African Americans > 60 (> 60); eGFR For Non-African Americans > 60 (> 60)
--- NOTE | 2018-11-08 08:00 | Orthopedics Progress Note ---
Date of Encounter: 11/08/18 Time of Encounter: 07:58 Subjective Interval history: Patient seen this morning, patient fell at her [facility] in [facility], patient sustained a periprosthetic right humerus fracture and a right hip fracture. The facility in [place] was unable to treat the patient patient was asked to be transferred here. Patient was flown in last night on the medical flight. Patient is alert and oriented 3, mild distress. Right upper extremity Decreased range of motion secondary to pain Positive ecchymosis Neurovascular intact Right lower extremity Shortened externally rotated Decreased range of motion secondary pain Neurovascular intact X-rays show a periprosthetic displaced right proximal humerus fracture, and a displaced right hip fracture. Patient is recommended for revision right total shoulder replacement humeral side, and a right hip hemiarthroplasty. We reviewed the risks and benefits as well as recovery. All questions were answered. The patient agreed to this treatment plan and acknowledged an understanding of the treatment plan as described. Objective Vital signs: Vital Signs Temp Pulse Resp BP Pulse Ox 11/08/18 07:08 98.1 F 76 16 121/74 96 11/08/18 03:36 99.0 F 81 19 120/71 89 11/08/18 01:20 99.0 F 90 19 103/53 93 Intake and Output 11/07/18 11/07/18 11/08/18 15:59 23:59 07:59 Output Total 1050 / 1050 Balance -1050 / -1050 Output: Catheter 1050 / 1050 Other: Weight 81.7 kg Blood Glucose* 110 Patient Weight 11/08/18 23:59 Weight 81.7 kg - Labs CBC & BMP: 11/08/18 02:16 11/08/18 02:16 Labs: Abnormal lab results RBC 3.62 M/mcL (3.82-4.97) L 11/08/18 02:16 Plt Count 138 K/mcL (140-400) L 11/08/18 02:16 Sodium 130 mEq/L (136-145) L 11/08/18 02:16 Carbon Dioxide 21 mEq/L (23-29) L 11/08/18 02:16 Glucose 128 mg/dL (70-105) H 11/08/18 02:16 Calculated Osmolality 271 (280-300) L 11/08/18 02:16 Calcium 8.5 mg/dL (8.6-10.3) L 11/08/18 02:16 Consult Discharge Plan - Plan Referrals: Carlos Grace MD [Primary Care Provider] -
--- NOTE | 2018-11-08 08:06 | Internal Med Progress Note ---
<MalathiGracie Limon - Last Filed: 11/08/18 13:01> Hospitalist Progress Note - Encounter Date of Encounter: 11/08/18 - Exam Vitals: Temp Pulse Resp BP Pulse Ox 97.7 F 80 18 92/60 94 11/08/18 10:46 11/08/18 10:46 11/08/18 10:46 11/08/18 10:58 11/08/18 10:46 - Time Spent with Patient Total time spent is greater than 50% in coordination of care (as documented) at patient's floor/unit and/or counseling patient: Internal Medicine: Result - Labs CBC & Chem 7: 11/08/18 02:16 11/08/18 09:58 Labs: Short CBC 11/08/18 Range/Units 02:16 WBC 9.6 (4.3-11.1) K/mcL Hgb 11.6 (11.5-15.4) g/dL Hct 35.9 (35.3-44.9) % Plt Count 138 L (140-400) K/mcL Neutrophils # 7.8 (1.6-8.9) K/mcL BMP 11/08/18 11/08/18 02:16 09:58 Sodium 130 L 130 L Potassium 4.8 Chloride 103 Carbon Dioxide 21 L BUN 12 Creatinine 0.86 Glucose 128 H Calcium 8.5 L - ABG Interpretation ABG results: PT/INR, D-dimer PT 11.5 Seconds (9.4-12.1) 11/08/18 02:16 Consult Discharge Plan - Plan Referrals: Carlos Grace MD [Primary Care Provider] - - Attending Attestation I examined this patient and my medical decision-making was reviewed with the Resident Physician Dr Dodson. I agree with the documented findings, disposition and treatment plan as described except to the extent set forth below. Ms Hernandez is observed for humerus and hip fractures awakes to name, drowsy with pain meds and difficulty maintaining attention, but answers all questions appropriately. Denies any pain in chest or head/neck with fall. She had two opiates prn in recent hours and pain is controlled but she feels very sedated and "loopy" since taking them. She has no complaints. denies cp, sob at home with exertion. gen- somnolent,appears stated age eyes- pupils equal round cv- reg rate and rhythm, normal s1,s2, no murmurs appreciated, no le edema lungs- ctabl, normal resp effort on o2 nc neuro- AAOx3, CN grossly intact Right femoral neck fracture Right humeral fracture -to OR with ortho today, pre op EKG is normal, no cardiac or cva history -reduce opiates due to over sedation HTN- currently normotensive with home acei held ETOH daily use- cont home librium as confirmed by overnight staff, need pharm to confirm as well, ciwa vte ppx scds pre op, defer to ortho for vte ppx post op <Carlos Dodson - Last Filed: 11/08/18 17:29> Hospitalist Progress Note - Encounter Date of Encounter: 11/08/18 Time of Encounter: 08:30 - Subjective Interval History: CC: Broke my right hip History of present illness: Eloisa Hernandez is a 63-year-old female who resents to [facility] from [place] after experiencing a mechanical fall. She is unable to give a good history today as she is extremely somnolent. She fell on some rocks. Before the fall she denies dizziness, syncope, chest pain. Past medical history: Hypertension, hypothyroidism, anxiety, depression. Unknown that she had high cholesterol. No official diagnosis of COPD but has been told it has been suspected. Allergies: No known drug allergies Social history: 30 years smoking history of 2 packs per day. Quit 8 years ago. Has 3 beers per day and says that she goes days without drinking and does not withdrawal. Denies illicit drugs Course: Patient presented to the [facility] ER after experiencing a mechanical fall on some rocks. Information comes from hospitalist H&P as workup was done in [place]. Her vitals in the ER are unknown. Her labs were are significant for an elevated white count of 11.5; troponins negative. Chest x-ray showed bilateral previous shoulder replacements. Shoulder x-ray showed displaced angulated fracture of proximal humeral shaft (I assume on the right side after seeing the patient). Pelvic x-ray showed impacted mildly displaced right femoral neck fracture with coxa valga. 11/08/18: Patient states that she "cannot keep her thoughts together ". She says that she is very tired because she has not slept for 2 nights. She feels that her mentation is worse when taking the pain medication. States her pain is under control. She has received 2 doses of 5 mg oxycodone every 4 hours since she has arrived. Denies hallucinations. Admits some tremor a while after the fall and agrees may have been secondary to anxiety. Denies dizziness. - Exam Vitals: Temp Pulse Resp BP Pulse Ox 98.1 F 76 16 121/74 96 11/08/18 07:08 11/08/18 07:08 11/08/18 07:08 11/08/18 07:08 11/08/18 07:08 Exam: Gen.: Middle-aged female. No acute distress Skin: Good turgor. No obvious facial rash except possible rosacea on skin above maxillary bones Eyes: Moist. Anicteric Neck: No JVD. No carotid bruits Cardiac: Regular rate and rhythm. No murmurs gallops rubs. Distant. Unlikely hepatojugular reflux although exam complicated by some patient guarding and flexion of neck. Respiratory: Posterior garsia not auscultated secondary to patient unable to sit up secondary to pain. Anterior garsia distant and possible crackles in the left lung base. Abdominal: Soft. Not diffusely tender. Obese. : Dark yellow urine. Carter catheter placed Extremities: No lower extremity pitting edema. Right leg is superior and externally rotated. Ecchymosis present around trochanter of the right hip. Ecchymosis of right upper arm above humerus. Neuro: Eyes able to focus. No tremor noticed. Alert and oriented to person, place, time to October 2018. Psych: Falls asleep while answering questions. Very somnolent but will respond to voice. - Assessment and Plan (1) Closed right hip fracture Current Visit: Yes Status: Acute Assessment and Plan: -Secondary to mechanical fall -Patient denies any dizziness, syncope, chest pain during time of the fall. Portion of ecchymosis over trochanteric region seen on exam. Right lower extremity superiorly displaced and externally rotated. -Per EMR: [facility] labs significant for white count 11.5 on arrival, troponins negative. [facility] pelvic x-ray 11/06/18 showed impacted mildly displaced right femoral neck fracture with coxa valgus. Plan: Right hip hemiarthroplasty 11/08/[address] Stock. 5 mg sublingual oxycodone every 4 hours when necessary for severe pain and Tylenol for moderate pain. (2) Right humeral fracture Current Visit: Yes Status: Acute Assessment and Plan: -Secondary to mechanical fall on [place] -Patient denies complicating symptoms as above. Ecchymosis and guarded movement on exam. -Per EMR: Shoulder x-ray 11/06/18 showed displaced angulated fracture of proximal humeral shaft Plan:Revision right total shoulder replacement humeral side 11/08/[address] Stock. 5 mg sublingual oxycodone every 4 hours when necessary for severe pain and Tylenol for moderate pain. (3) Hyponatremia Current Visit: Yes Status: Chronic Assessment and Plan: -Chronic, stable -11/08/18: Patient appears euvolemic. Sodium 302. Serum osmolality low at 273. -We will consider measurement of urine sodium and osmolality pending clinical course Plan: Continue to monitor (4) Hypothyroidism Current Visit: Yes Status: Chronic Assessment and Plan: -Chronic Plan: Continue levothyroxine (5) Alcohol abuse Current Visit: Yes Status: Acute Assessment and Plan: -Low threshold for suspicion secondary to home chlordiazepoxide use and history of fall. Patient admits to 3 beers per day. -CIWA score unremarkable Plan: Continue CIWA. Continue home dose of chlordiazepoxide while inquiring as to regular home use or not. (6) Anxiety and depression Current Visit: Yes Status: Acute Assessment and Plan: Plan: Continue home paroxetine (7) Hypertension Current Visit: Yes Status: Acute Assessment and Plan: -Chronic -Systolic 85>92 morning of 11/08/18. Plan: Continue to hold home lisinopril. Continue to monitor (8) Acute respiratory failure with hypoxia Current Visit: Yes Status: Acute Assessment and Plan: -Likely secondary to chronic unofficial COPD and metabolic stress of long bone fractures -30 year smoking history of 2 packs per day. Patient denies official PFT testing. -O2 sats below 92% on room air on admission. -Chest CT 03/29/18: Moderate centrilobular emphysema with mid and upper lung predominance. Diffuse bronchial wall thickening. Linear atelectasis and/or scarring and lower lungs. Sub-5 mm nodules throughout lungs. - No ABG for now as desaturation minimal and dyspnea was not a presenting complaint. Nasal cannula administered. Plan: Ipratropium/albuterol, budesonide/formoterol fumarate. Continue weaning nasal cannula. (9) COPD (chronic obstructive pulmonary disease) Current Visit: Yes Status: Suspected Assessment and Plan: -Likely secondary to 30 year smoking history of 2 packs per day. Patient denies official PFT testing. Plan: As above (10) Thrombocytopenia Current Visit: Yes Status: Acute Assessment and Plan: -Very minimal -Consider secondary to B12 and folate deficiency -History of consistent alcohol use -11/08/18: 138 Plan: Repeat in the morning. Continue to monitor DVT Prophylaxis: Pending surgical recommendation. SCDs. - Time Spent with Patient Total time spent is greater than 50% in coordination of care (as documented) at patient's floor/unit and/or counseling patient: Internal Medicine: Result - Labs CBC & Chem 7: 11/08/18 02:16 11/08/18 09:58 Labs: Short CBC 11/08/18 Range/Units 02:16 WBC 9.6 (4.3-11.1) K/mcL Hgb 11.6 (11.5-15.4) g/dL Hct 35.9 (35.3-44.9) % Plt Count 138 L (140-400) K/mcL Neutrophils # 7.8 (1.6-8.9) K/mcL BMP 11/08/18 02:16 Sodium 130 L Potassium 4.8 Chloride 103 Carbon Dioxide 21 L BUN 12 Creatinine 0.86 Glucose 128 H Calcium 8.5 L - ABG Interpretation ABG results: PT/INR, D-dimer PT 11.5 Seconds (9.4-12.1) 11/08/18 02:16 <Carlos Dodson - Last Filed: 11/08/18 17:29> (1) Closed right hip fracture Qualifiers: Encounter type: initial encounter Qualified Code(s): S72.001A - Fracture of unspecified part of neck of right femur, initial encounter for closed fracture (2) Right humeral fracture Qualifiers: Encounter type: initial encounter Humerus Location: proximal Fracture type: closed Fracture morphology: unspecified fracture morphology Qualified Code(s): S42.201A - Unspecified fracture of upper end of right humerus, initial encounter for closed fracture (4) Hypothyroidism Qualifiers: Hypothyroidism type: unspecified Qualified Code(s): E03.9 - Hypothyroidism, unspecified (7) Hypertension Qualifiers: Hypertension type: essential hypertension Qualified Code(s): I10 - Essential (primary) hypertension
--- NOTE | 2018-11-08 08:16 | Anesthesia Evaluation PreOp ---
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 SCIENTIST History: Denies Any Significant HX Other Medical History: Thyroid, Other (anxiety/depression) Anesthesia History: No Prior Anesthetic Complications, Past Anesthesia Alcohol Use: occasionally Drug use: none Medications and Allergies Albuterol Sulfate [Proventil Inhaler] 2 puff IH Q4HR PRN 04/23/18 [History] Aspirin 325 mg PO DAILY 04/23/18 [History] Chlordiazepoxide [Librium] 20 mg PO HS 04/23/18 [History] Chlordiazepoxide [Librium] 30 mg PO DAILY 04/23/18 [History] DiphenhydraMINE [Benadryl] 25 mg PO HS 04/23/18 [History] Ipratropium/Albuterol Neb [Duoneb] 3 ml IH Q6HR PRN 04/23/18 [History] Levothyroxine [Synthroid] 125 mcg PO 0630 04/23/18 [History] Lisinopril [Zestril] 40 mg PO DAILY 04/23/18 [History] Naproxen [Naprosyn] 250 mg PO BID 04/23/18 [History] Paroxetine [Paxil] 30 mg PO DAILY 04/23/18 [History] Allergy/AdvReac Type Severity Reaction Status Date / Time No Known Allergies Allergy Verified 04/23/18 08:52 - Meds/Allergy Pre-op Review Medications Reviewed: Yes Allergies Reviewed: Yes Beta Blockers on Current Med List: No Anesthesia Results - Labs 11/08/18 02:16 11/08/18 09:58 - Imaging EKG: report reviewed (04/11/2018 SINUS RHYTHM wnl) Anesthesia Exam Vital Signs/O2 Sat/Glucose, Most Recent Temp Pulse Resp BP Pulse Ox 98.1 F 76 16 121/74 96 11/08/18 07:08 11/08/18 07:08 11/08/18 07:08 11/08/18 07:08 11/08/18 07:08 Blood Glucose* 110 Height: 5'2''/1.57m Weight: 180 lbs/81.7 kg NPO (# of Hours): 8 Pain Scale: 7 (right side) Pain Scale Used: Numeric (1 - 10) - HEENT Pupil (Motor): EOMI Mallampati: II Teeth: Normal, Missing Oral Opening: Greater than 3 - ASSISTANT RESEARCH SCIENTIST LOC: Oriented ASSISTANT RESEARCH SCIENTIST Motor: Normal RUE, Normal LUE, Normal RLE, Normal LLE, Normal Face ASSISTANT RESEARCH SCIENTIST Sensory: Normal: RUE, LUE, RLE, LLE, Face - Cardiac Rhythm: Regular Murmur: None - Pulmonary Breath Sounds: bilateral Clear Respiratory Effort: Symmetrical Anesthesia Assess/Plan ASA Score: 3 Level of consciousness: Cooperative, Oriented, Tranquil Anesthetic Plan: General, Regional Nerve Block Regional Nerve Block Plan: Supraclavicular Monitoring Plan: Standard Monitors Recovery Plan: PACU
[2018-11-08] MEDS ORDERED: *HR* Midazolam HCl 2 MG/2 ML VIAL ONE (14:37)
[2018-11-08] MEDS ORDERED: *HR* FentaNYL (PF) 100 MCG/2 ML VIAL ONE (14:37)
[2018-11-08] MEDS ORDERED: *HR* Propofol 200 MG/20 ML VIAL IVP ONE (14:38)
[2018-11-08] MEDS ORDERED: Lidocaine -MPF 2% 2 ML VIAL ONE (14:39)
[2018-11-08] MEDS ORDERED: *HR* Succinylcholine 200 MG/10 ML VIAL IVP ONE (14:39)
[2018-11-08] MEDS ORDERED: Dexamethasone 4 MG/ML VIAL ONE (14:39)
[2018-11-08] MEDS ORDERED: Ondansetron 4 MG/2 ML VIAL ONE (14:39)
[2018-11-08] MEDS ORDERED: Ethanol\\Acetic Acid\\Na Ace\\Ben 1,000 ML IRRIG.SOLN IR ONE (14:41)
[2018-11-08] MEDS ORDERED: Albuterol 2.5 MG/3 ML NEBULIZER IH ONE (14:44)
[2018-11-08] MEDS ORDERED: Acetaminophen IV 1,000 MG/100 ML INFUS..BTL IVPB ONE (14:44)
[2018-11-08] MEDS ORDERED: Celecoxib 200 MG CAPSULE PO ONE (14:45)
[2018-11-08] MEDS ORDERED: Pregabalin 75 MG CAPSULE PO ONE (14:45)
[2018-11-08] MEDS ORDERED: *HR* OxyCODONE Immed Rel 5 MG TABLET PO PRN (14:46)
[2018-11-08] MEDS ORDERED: Ondansetron 4 MG/2 ML VIAL IVP ONE (14:46)
[2018-11-08] MEDS ORDERED: *HR* Promethazine 25 MG/ML VIAL IVP PRN (14:46)
[2018-11-08] MEDS ORDERED: *HR* HYDROmorphone (PF) 1 MG/ML SYRINGE IVP PRN (14:46)
[2018-11-08] MEDS ORDERED: ROPIVACAINE/PF/NS 0.25% 1 EACH SYRINGE INTRAART ONE (15:01)
[2018-11-08] MEDS ORDERED: Acetaminophen IV 0 MG/0 ML INFUS..BTL ONE (15:01)
[2018-11-08] MEDS ORDERED: Ropivacaine/PF 0.5% 30 ML VIAL ONE (15:01)
[2018-11-08] MEDS: Ipratropium/Albuterol Neb 3 ML IH SCH ×3 (15:04→20:56)
[2018-11-08] MEDS: Famotidine 20 MG/2 ML VIAL IVP ONE ×2 (15:24→15:37)
[2018-11-08] MEDS ORDERED: Famotidine 20 MG/2 ML VIAL ONE (15:34)
[2018-11-08] MEDS ORDERED: *HR* Rocuronium Bromide 50 MG/5 ML VIAL ONE (16:02)
[2018-11-08] MEDS ORDERED: *HR* PHENYLEPHRINE 1,000 MCG/10 ML SYRINGE IVP ONE ×2 (16:23→19:43)
--- NOTE | 2018-11-08 16:54 | Anesthesia Procedures ---
Date of Encounter: 11/08/18 Time of Encounter: 15:45 Procedures: Anesthesia - Nerve Block Procedure Date: 11/08/18 Time: 15:45 Allergies/Adv Reactions: No Known Allergies Allergy (Verified 04/23/18 08:52) Pre-op Diagnosis: Rt humerus fx/Rt femur fx Surgical Procedure: Rt total shoulder revision, reverse/Rt hip hemiarthropl Checklist: Correct Patient Identifier, Correct procedure, History checked Correct side: Right Blood Thinner: No Monitor Applied: EKG, BP, Pulse Oximetry Supplemental Oxygen via Nasal Cannula (L/min): 3 Sedation: Fentanyl (mcg): 50 Indication: Post Op Analgesia Pre-op Neuro Deficits: No Block Type: Supraclavicular, Other (superficial cervical, intercostobrachial) Catheter placed: No Sterile Technique: Yes Ultrasound used: Yes Anatomy identified: Yes Visual spread of Local: Yes Neuro Stimulation: Yes Nerve Stimulator Range: >0.4 - 0.6 mA Blood on Needle Aspiration: No Smooth Injection of Local: Yes Pain with Injection of Local: No Prep: Chlorhexadine Needle: 22 x 50 mm Stimuplex Local: Ropivacaine (Ropi 0.5% 30ml with Decadron 4mg Supraclav/Ropi 0.25% 4ml intercosto/Ropi 0.25% 4ml superficial cervical) Volume (cc): 38 Number of Attempts: 1 Complications: None/effective block Vitals: see nurses notes Comments: block placed per surgeon request
[2018-11-08] MEDS ORDERED: EPHEDrine 50 MG/ML VIAL ONE (17:39)
--- NOTE | 2018-11-08 18:22 | Orthopedic Operative Note ---
Date of procedure: 11/08/18 Pre-op diagnosis: Displaced right femoral neck fracture, Post-op diagnosis: other (Displaced comminuted periprosthetic right proximal humerus fracture) Procedure: Procedure: Right hip hemiarthroplasty, revision humeral component right total shoulder replacement reverse with fracture fixation Estimated blood loss: 400 cc Hardware: Metal bipolar replacement [place] 6 anteverted Anato femoral stem +8 femoral head with 54 bipolar head, Arthrex 9 revision humeral stem 12 metal spacer 3 constrained Delphine spacer for Arthrex cerclage fiber tapes Procedural Notes: Displaced right femoral neck fracture, displaced comminuted periprosthetic right humeral fracture with loss of fixation of the humeral component for reverse total shoulder. Operative procedure: The patient was brought to the operating room and placed on the operating room table. After general anesthesia was administered the patient was placed in the lateral decubitus position with the operative leg up. All pressure points were padded appropriately and the head was stabilized in the neutral position. The operative extremity was prepped and draped in the sterile surgical fashion patient received IV antibiotic prior to skin incision. A standard posterior approach is made to the operative hip, the incision was made through the skin and subcutaneous tissue hemostasis was obtained with Bovie cautery. Using careful sharp dissection the fascia was identified and incised exposing the external rotators. The external rotators were released off the greater trochanter and tagged with #2 FiberWire suture. The capsule was T'd open the femoral head was removed. The femoral neck cut was made at the appropriate level. The hip was brought into internal rotation and prepared with the box repairer followed by the canal finder followed by broaching process in 20 degrees anteversion. It was broached up to the appropriate size 6 The femoral implant was impacted in place in 20 degrees of anteversion. Trial reduction found the hip to be stable with the appropriate sizes +8 head 54 bipolar component head. The trials were removed and the real implants were impacted in place. The hip was reduced, the hip had full extension and full flexion of the knee was in full extension.the patient had apparent equal leg length. The hip had excellent stability with forward flexion to 90 degrees adduction of 30 degrees and internal rotation of 60 degrees. The hip had no shuck. The hip was irrigated out with 2 L of pulse irrigation. Fascia was closed with #2 PDS suture. The deep tissue was irrigated and closed deep with #1 PDS suture superficially with 0 PDS suture and skin was closed with le. The patient was placed in a sterile dressing and abduction pillow. The patient was then repositioned for the shoulder replacement revision. The patient was placed in the modified beachchair position. All pressure points were padded appropriately. And the head was stabilized in the neutral position. The operative extremity was prepped and draped in the sterile surgical fashion. A standard deltopectoral approach was made to the operative shoulder. Incision was made to the old incision, through the skin and subcutaneous tissue,hemo stasis was obtained with Bovie cautery. Using careful blunt dissection the cephalic vein was identified and mobilized medially. The deltopectoral interval was developed and the clavipectoral fascia was incised. Fracture hematoma was immediately encountered. The patient had cultures obtained at this point. The proximal humerus was exposed using subperiosteal dissection. Patient had at least 4 major fragments. The shoulder was dislocated humeral component was removed examination of the glenoid component revealed no obvious abnormalities none were seen on x-ray either. The humerus was sized to a 9 Arthrex revision stem a 9 Arthrex revision stem was impacted in 20 degrees of retroversion. Trial reduction revealed the shoulder to be stable with a +12 metal spacer and a 3 constrained Delphine spacer these components were seated and secured and the shoulder was reduced. With the shoulder reduced attention was turned to the fracture fixation the fracture was reduced and held in place with bone holding forceps. The fracture was secured with 4 Arthrex cerclage fiber tapes placed at different positions around the fractures to help Secure fracture fixation from top to bottom. The shoulder was stable when taken through range of motion. The deep tissue was irrigated with pulse irrigation with an antibacterial solution. The PA close the shoulder. The deltopectoral interval was closed with a running #1 PDS suture, subcutaneous tissue was irrigated and closed with 0 PDS suture, the skin was closed with skin le The patient was placed in a sterile dressing, abduction brace and extubated. The patient was then transferred to the recovery room in stable condition. Anesthesia: GETA Surgeon: Mani Stock Was there an title assistant present: Yes Dry Ice Maker: Mani Stock Estimated blood loss (cc): 400 Condition: stable Disposition: PACU
--- NOTE | 2018-11-08 19:31 | Anesthesia Evaluation Post Op ---
Date of Encounter: 11/08/18 Time of Encounter: 19:30 - Vital Signs Vital Signs: Vital Signs/O2 Sat, Most Current Temp Pulse Resp BP Pulse Ox 97.4 F L 101 18 130/95 93 11/08/18 18:51 11/08/18 19:11 11/08/18 19:11 11/08/18 19:11 11/08/18 19:11 - Lungs Lungs: Clear Ascult./Percussion - Airway Airway: Non-obstructed - Cardiovascular Regular Rate - Mental Status Mental Status: Baseline Status - Pain Pain Scale: 0 Pain Scale used: Numeric (1 - 10) - Nausea Vomiting Nausea Vomiting: Not Present - Hydration Hydration: NPO - Discharge PostOp Status: Transfer Patient to floor
[2018-11-08] MEDS ORDERED: Ringers Solution, Lactated 1,000 ML ONE (19:46)
[2018-11-08] MEDS ORDERED: Isovue-370 500 ML BOTTLE IVP ONE (20:22)
[2018-11-08] MEDS: Budesonide/Formoterol 80/4.5 1 PUFF INH IH SCH (20:56)
[2018-11-08 21:03] LABS: ABG Base Excess -9 mEq/L (-2 to 3); ABG HCO3 18 mEq/L (21-27); ABG Oxygen Saturation 88 % (95-98); ABG PCO2 43 mmHg (35-45); ABG PH 7.23 pH Units (7.32-7.45); ABG PO2 64 mmHg (85-104); ABG TCO2 19 mEq/L (20-26)
--- NOTE | 2018-11-08 22:06 | Anesthesia Progress Note ---
Date of Encounter: 11/08/18 Time of Encounter: 22:02 Anesthesia Note - Note Note: 11/08/18 22:02 After clearing patient for discharge, he BP droped to 69/40's, she was somnolent which i told was her baseline prior to her surgery, hgb was 9.6 and glucose was in the 150's, gave a fluid bolus and placed on CPAP, her vitals signs returned to baseline and she was more alert after being on CPAP. I spoke with hospitalist and discussed a work up for PE and intracranial pathology given her recent fall/trauma, immobilization and long flight from [place]. Further care per primary team
[2018-11-08 22:45] LABS: Basophils % 0.1 %; Eosinophils % 0.1 %; Hematocrit 29.9 % (35.3-44.9); Immature Granulocytes % 0.3 % (0-4); Lymphocytes # 0.3 K/mcL (0.6-4.6); Lymphocytes % 2.6 %; Mean Corpuscular HGB Conc 32.1 g/dL (31.6-35.5); Mean Corpuscular Hemoglobin 31.9 pg (28.0-33.3); Mean Corpuscular Volume 99.3 fL (83.0-100.0); Mean Platelet Volume 10.3 fL (9.4-12.4); Monocytes # 0.2 K/mcL (0.0-1.3); Monocytes % 1.4 %; Neutrophils # 10.6 K/mcL (1.6-8.9); Platelet Count 108 K/mcL (140-400); Red Blood Count 3.01 M/mcL (3.82-4.97); Red Cell Distribution Width 12.6 % (11.5-14.5); Segmented Neutrophils % 95.5 %; White Blood Count 11.1 K/mcL (4.3-11.1)
[2018-11-08 22:49] LABS: Hemoglobin 9.6 g/dL (11.5-15.4)
[2018-11-08] MEDS ORDERED: 0.9 % Sodium Chloride 500 ML IVC ONE (23:17)
[2018-11-09] MEDS: Ipratropium/Albuterol Neb 3 ML IH SCH ×4 (03:27→21:52)
[2018-11-09 04:47] LABS: Mean Platelet Volume 11.1 fL (9.4-12.4); Red Cell Distribution Width 12.5 % (11.5-14.5)
[2018-11-09 04:49] LABS: Hematocrit 30.8 % (35.3-44.9); Hemoglobin 10.1 g/dL (11.5-15.4); Immature Platelets 7.2 % (1.1-6.1); Mean Corpuscular HGB Conc 32.8 g/dL (31.6-35.5); Mean Corpuscular Hemoglobin 32.1 pg (28.0-33.3); Mean Corpuscular Volume 97.8 fL (83.0-100.0); Red Blood Count 3.15 M/mcL (3.82-4.97); White Blood Count 10.2 K/mcL (4.3-11.1)
[2018-11-09 05:03] LABS: Calcium 7.9 mg/dL (8.6-10.3); Potassium 5.1 mEq/L (3.5-5.1)
[2018-11-09] MEDS ORDERED: Temazepam 15 MG CAPSULE PO PRN (06:22)
[2018-11-09] MEDS ORDERED: *HR* Promethazine 25 MG/ML VIAL IVP PRN (06:22)
[2018-11-09] MEDS ORDERED: MOM Conc 10 ML UD.LIQ PO PRN (06:22)
[2018-11-09] MEDS ORDERED: Naloxone 0.4 MG/ML INJ IVP PRN (06:22)
[2018-11-09] MEDS ORDERED: Ondansetron 4 MG/2 ML VIAL IVP PRN (06:22)
[2018-11-09] MEDS ORDERED: Sennosides 8.6 MG TABLET PO PRN (06:22)
--- NOTE | 2018-11-09 06:22 | Internal Med Progress Note ---
<Gracie Servin - Last Filed: 11/09/18 16:29> Hospitalist Progress Note - Encounter Date of Encounter: 11/09/18 - Exam Vitals: Temp Pulse Resp BP Pulse Ox 98.6 F 97 16 102/65 93 11/09/18 15:40 11/09/18 15:40 11/09/18 15:41 11/09/18 15:40 11/09/18 15:41 - Time Spent with Patient Total time spent is greater than 50% in coordination of care (as documented) at patient's floor/unit and/or counseling patient: Internal Medicine: Result - Labs CBC & Chem 7: 11/09/18 04:36 11/09/18 04:35 Labs: Short CBC 11/08/18 11/09/18 Range/Units 22:39 04:36 WBC 11.1 10.2 (4.3-11.1) K/mcL Hgb 9.6 L D 10.1 L (11.5-15.4) g/dL Hct 29.9 L 30.8 L (35.3-44.9) % Plt Count 108 L 97 L (140-400) K/mcL Neutrophils # 10.6 H (1.6-8.9) K/mcL BMP 11/09/18 04:35 Sodium 132 L Potassium 5.1 Chloride 108 H Carbon Dioxide 18 L BUN 15 Creatinine 1.12 Glucose 215 H Calcium 7.9 L - ABG Interpretation ABG results: ABG ABG pH 7.23 pH Units (7.32-7.45) L 11/08/18 20:59 ABG pCO2 43 mmHg (35-45) 11/08/18 20:59 ABG pO2 64 mmHg (85-104) L 11/08/18 20:59 ABG O2 Saturation 88 % (95-98) L 11/08/18 20:59 PT/INR, D-dimer PT 11.5 Seconds (9.4-12.1) 11/08/18 02:16 - Impressions Impressions Hip X-Ray 11/08/18 16:00 IMPRESSION: Right total hip arthroplasty without evidence of hardware complication. D/ / Aashish Titus MD / Aashish Titus MD Interpreting Provider: Aashish Titus MD Shoulder X-Ray 11/08/18 16:00 IMPRESSION: Revision of the right shoulder arthroplasty without evidence of hardware complication. D/ / Aashish Titus MD / Aasihsh Titus MD Interpreting Provider: Aashish Titus MD Chest CTA 11/08/18 20:22 IMPRESSION: Negative for pulmonary embolus although the exam is markedly limited as described above. Pulmonary embolus cannot be excluded in the segmental and subsegmental portions of the pulmonary arteries. Bibasilar atelectasis or infiltrate. Emphysema Degenerative change and multiple wedge compression deformities in the thoracic spine of uncertain chronicity. Clinical correlation recommended. D/ / Quentin Barrera MD / Quentin Barrera MD Interpreting Provider: Quentin Barrera MD Head CT 11/08/18 20:22 IMPRESSION: No acute intracranial abnormality. D/ / Balbir Coates / Balbir Coates Interpreting Provider: Balbir Coates Consult Discharge Plan - Plan Referrals: Carlos Grace MD [Primary Care Provider] - - Attending Attestation I examined this patient and my medical decision-making was reviewed with the Resident Physician Dr Dodson. I agree with the documented findings, disposition and treatment plan as described except to the extent set forth below. Ms Hernandez is observed for humerus and hip fractures requiring surgical intervention awakes alert and not confused at this time. she denies sob and doesn't feel she needs o2 nc. denies cough or wheezing. pain is tolerable. She is able to state she takes librium for anxiety not etoh and to give dosing. has howell cath, no dysuria, suprapubic pain, + flatus gen- awake, alert,appears stated age cv- reg rate and rhythm, normal s1,s2, no murmurs appreciated lungs- ctabl, normal resp effort on o2 nc msk- right hip and shoulder dressing c/d/i, extensive right upper extremity ecchymosis without palpable hematoma neuro- AAOxperson, palce, situation, CN grossly intact Right femoral neck fracture /Right humeral fracture s/p OR intervention- post op care per orhto, avoid excessive opiates as caused somolence HTN- currently normotensive with home acei held ETOH daily use- not in etoh w/d, ciwa Somnolence, resolved- she is not confused, suspect sxs yesterday related to pre op opiates/librium and then post with anesthesia - CT head obtained given her fall days prior and neg for bleed Emphysema, on O2 NC without hypoxia- wean to room air with o2 sat goal 88-92%, CTA chest was obtained overnight and negative for acute findings. an abg was obtained due to somnolence and a mixed picture result but without po2 retention, today she is doing just fine and vbg ordered and noted completed but no results available in [facility], repeat vbg ordered anxiety- takes librium at home- will provide 10 mg hs prn librium and monitor for effect tonight vte ppx lovenox <Carlos Dodson - Last Filed: 11/09/18 20:05> Hospitalist Progress Note - Encounter Date of Encounter: 11/09/18 Time of Encounter: 06:30 - Subjective Interval History: Today the patient could not tell me if she was better or worse. She had a lot of trouble finding her words. She would often make incoherent statements. Mental status improved throughout the day. - Exam Vitals: Temp Pulse Resp BP Pulse Ox 97.6 F 100 16 111/68 95 11/09/18 03:54 11/09/18 03:54 11/09/18 03:54 11/09/18 03:54 11/09/18 03:54 Exam: Gen.: Middle-aged female. No acute distress Skin: Good turgor. Some ecchymosis of forearms. Neck: No carotid bruits Cardiac: Distant. Regular rate and rhythm. Respiratory: Upper anterior garsia distant. Posterior garsia also diminished but no overt adverse lung sounds. Neuro: Cranial nerves II: Pupillary constriction shows increased set of release at end of constriction. The right eye is more constricted than the left. 3, 4, 6, 5 intact. 7 no facial droop. 8 intact. 9, 10: Phonation are intact palatal rise symmetrical. . 11: Shoulder shrug intact. 12: Tongue fasciculations and protrudes midline. Sensation upper and lower bilateral extremities intact except the right upper extremity likely secondary to nerve block. Cerebellar testing was difficult with left hand. Intention tremor present. Right upper and lower extremity strength not assessed well secondary to pain and nerve block. Gross left upper and lower extremity strength intact. Can blink eyes on command. Reflexes 2 out of 4 left upper and right and left lower extremities. Right upper extremity not assessed secondary to fracture. MSK: Somewhat swollen and ecchymotic right lower extremity worse than the left. No bilateral pitting edema. Psych: Some difficulty finding words. Some incoherent statements. Alert and oriented only to person and place. Thought it was September 23 - Assessment and Plan (1) Closed right hip fracture Current Visit: Yes Status: Acute Assessment and Plan: -Secondary to mechanical fall -Patient denies any dizziness, syncope, chest pain during time of the fall. Portion of ecchymosis over trochanteric region seen on exam. Right lower extremity superiorly displaced and externally rotated. -Per EMR: [place] labs significant for white count 11.5 on arrival, troponins negative. [place] pelvic x-ray 11/06/18 showed impacted mildly displaced right femoral neck fracture with coxa valgus. -Right hip hemiarthroplasty 11/08/[address] Stock. Plan: 5 mg sublingual oxycodone every 4 hours when necessary for severe pain and Tylenol for moderate pain. (2) Right humeral fracture Current Visit: Yes Status: Acute Assessment and Plan: -Secondary to mechanical fall on [place] -Patient denies complicating symptoms as above. Ecchymosis and guarded movement on exam. -Per EMR: Shoulder x-ray 11/06/18 showed displaced angulated fracture of proximal humeral shaft -Revision right total shoulder replacement humeral side 11/08/[address] Stock. Plan: 5 mg sublingual oxycodone every 4 hours when necessary for severe pain and Tylenol for moderate pain. (3) Metabolic acidosis Current Visit: Yes Status: Acute Assessment and Plan: -Consider secondary to retaining of CO2 as well as sedating medications -Original ABG on 11/08/18 showing non-anion gap metabolic acidosis with concomitant respiratory acidosis. Repeat VBG 11/09/18 correlated these findings however improvement is seen. -PH 7.23> 7.31 Plan: If worsening or no improvement is seen may consider RTA workup either in the hospital depending on clinical course or outpatient. (4) Hyponatremia Current Visit: Yes Status: Chronic Assessment and Plan: -Chronic, stable -11/08/18: Patient appears euvolemic. Sodium stable. Calculated serum osmolality WNL. -consider measurement of urine sodium and osmolality likely on outpatient basis Plan: Continue to monitor (5) Acute respiratory failure with hypoxia Current Visit: Yes Status: Acute Assessment and Plan: -Likely secondary to chronic unofficial COPD and metabolic stress of long bone fractures -30 year smoking history of 2 packs per day. Patient denies official PFT testing. -O2 sats below 92% on room air on admission. -Chest CT 03/29/18: Moderate centrilobular emphysema with mid and upper lung predominance. Diffuse bronchial wall thickening. Linear atelectasis and/or scarring and lower lungs. Sub-5 mm nodules throughout lungs. - ABG as above. Nasal cannula administered. -CTA 11/08/18 could not rule out pulmonary embolus of segmental and subsegmental portions of pulmonary arteries. Continue to monitor for no improvement of saturations. Recent saturation 98% on room air. Plan: Ipratropium/albuterol, budesonide/formoterol fumarate. Continue weaning nasal cannula. (6) Hypothyroidism Current Visit: Yes Status: Chronic Assessment and Plan: -Chronic Plan: Continue levothyroxine (7) Alcohol abuse Current Visit: Yes Status: Acute Assessment and Plan: -Low threshold for suspicion secondary to home chlordiazepoxide use and history of fall. Patient admits to 3 beers per day. -CIWA score unremarkable Plan: Continue CIWA. Chlordiazepoxide weaned to 10 mg at night. (8) Anxiety and depression Current Visit: Yes Status: Acute Assessment and Plan: Plan: Continue home paroxetine (9) Hypertension Current Visit: Yes Status: Acute Assessment and Plan: -Chronic -Systolic 85>92 morning of 11/08/18. Plan: Continue to hold home lisinopril. Continue to monitor (10) COPD (chronic obstructive pulmonary disease) Current Visit: Yes Status: Suspected Assessment and Plan: -Likely secondary to 30 year smoking history of 2 packs per day. Patient denies official PFT testing. Plan: As above (11) Thrombocytopenia Current Visit: Yes Status: Acute Assessment and Plan: -Very minimal -Consider secondary to B12 and folate deficiency -History of consistent alcohol use Plan: Continue to monitor as did show decrease. consider outpt workup pending hospital course (12) Altered mental status Current Visit: Yes Status: Acute Assessment and Plan: Paroxysms of some confusion seen. -CT head 11/08/18 negative for acute findings -Mental status improved. Plan: Continue to monitor DVT Prophylaxis: ScDs - Time Spent with Patient Total time spent is greater suad Internal Medicine: Result - Labs CBC & Chem 7: 11/09/18 04:36 11/09/18 04:35 Labs: Short CBC 11/08/18 11/09/18 Range/Units 22:39 04:36 WBC 11.1 10.2 (4.3-11.1) K/mcL Hgb 9.6 L D 10.1 L (11.5-15.4) g/dL Hct 29.9 L 30.8 L (35.3-44.9) % Plt Count 108 L 97 L (140-400) K/mcL Neutrophils # 10.6 H (1.6-8.9) K/mcL BMP 11/08/18 11/09/18 09:58 04:35 Sodium 130 L 132 L Potassium 5.1 Chloride 108 H Carbon Dioxide 18 L BUN 15 Creatinine 1.12 Glucose 215 H Calcium 7.9 L - ABG Interpretation ABG results: ABG ABG pH 7.23 pH Units (7.32-7.45) L 11/08/18 20:59 ABG pCO2 43 mmHg (35-45) 11/08/18 20:59 ABG pO2 64 mmHg (85-104) L 11/08/18 20:59 ABG O2 Saturation 88 % (95-98) L 11/08/18 20:59 PT/INR, D-dimer PT 11.5 Seconds (9.4-12.1) 11/08/18 02:16 - Impressions Impressions Hip X-Ray 11/08/18 16:00 IMPRESSION: Right total hip arthroplasty without evidence of hardware complication. D/ / Aashish Titus MD / Aashish Titus MD Interpreting Provider: Aashish Titus MD Shoulder X-Ray 11/08/18 16:00 IMPRESSION: Revision of the right shoulder arthroplasty without evidence of hardware complication. D/ / Aashish Titus MD / Aashish Titus MD Interpreting Provider: Aashish Titus MD Chest CTA 11/08/18 20:22 IMPRESSION: Negative for pulmonary embolus although the exam is markedly limited as described above. Pulmonary embolus cannot be excluded in the segmental and subsegmental portions of the pulmonary arteries. Bibasilar atelectasis or infiltrate. Emphysema Degenerative change and multiple wedge compression deformities in the thoracic spine of uncertain chronicity. Clinical correlation recommended. D/ / Quentin Barrera MD / Quentin Barrera MD Interpreting Provider: Quentin Barrera MD Head CT 11/08/18 20:22 IMPRESSION: No acute intracranial abnormality. D/ / Balbir Coates / Balbir Coates Interpreting Provider: Balbir Coates ____ <Carlos Dodson - Last Filed: 11/09/18 20:05> (1) Closed right hip fracture Qualifiers: Encounter type: initial encounter Qualified Code(s): S72.001A - Fracture of unspecified part of neck of right femur, initial encounter for closed fracture (2) Right humeral fracture Qualifiers: Encounter type: initial encounter Humerus Location: proximal Fracture type: closed Fracture morphology: unspecified fracture morphology Qualified Code(s): S42.201A - Unspecified fracture of upper end of right humerus, initial encounter for closed fracture (6) Hypothyroidism Qualifiers: Hypothyroidism type: unspecified Qualified Code(s): E03.9 - Hypothyroidism, unspecified (9) Hypertension Qualifiers: Hypertension type: essential hypertension Qualified Code(s): I10 - Essential (primary) hypertension
--- NOTE | 2018-11-09 06:22 | Orthopedics Progress Note ---
Date of Encounter: 11/09/18 Time of Encounter: 06:22 Subjective Interval history: Patient was seen this morning doing well without complaints. Afebrile vital signs stable. Operative extremities: Neurovascularly intact Dressing clean dry and intact [place] nontender Assessment and plan: Continue with postoperative care Hematocrit 30 Objective Vital signs: Vital Signs Temp Pulse Resp BP Pulse Ox 11/09/18 03:54 97.6 F 100 16 111/68 95 11/09/18 03:27 14 97 11/08/18 23:23 97.7 F 99 14 94/61 94 11/08/18 22:50 97.7 F 101 18 85/60 89 11/08/18 20:56 12 92 11/08/18 20:21 97.5 F L 97 16 100/48 93 11/08/18 20:11 97 16 84/48 94 11/08/18 19:51 98.8 F 97 16 97/73 94 11/08/18 19:48 16 94 11/08/18 19:41 96 16 94/63 93 11/08/18 19:31 101 14 74/49 93 11/08/18 19:21 97.4 F L 104 20 100/81 93 11/08/18 19:11 101 18 130/95 93 11/08/18 19:01 90 14 110/51 94 11/08/18 18:51 97.4 F L 92 14 108/47 96 11/08/18 15:19 80 16 95/86 96 11/08/18 10:58 92/60 11/08/18 10:46 97.7 F 80 18 85/56 94 11/08/18 09:24 17 93 11/08/18 08:44 96 11/08/18 07:08 98.1 F 76 16 121/74 96 Intake and Output 11/08/18 11/08/18 11/09/18 15:59 23:59 07:59 Intake Total 0 / 0 0 / 0 0 / 0 Output Total 1055 / 2105 445 / 445 Balance 0 / -2105 -1055 / -2105 -445 / -445 Intake: Oral 0 / 0 0 / 0 0 / 0 Output: Estimated Blood Loss 400 / 400 Urine Amount (Catheter) 200 / 200 Catheter 325 / 1375 425 / 425 Wound Drainage 130 / 130 20 / 20 Right Shoulder 90 / 90 20 / 20 Other: Weight 81.62 kg Blood Glucose* 92 160 201 Patient Weight 11/09/18 23:59 Weight 81.62 kg - Labs CBC & BMP: 11/09/18 04:36 11/09/18 04:35 Labs: Abnormal lab results RBC 3.15 M/mcL (3.82-4.97) L 11/09/18 04:36 Hgb 10.1 g/dL (11.5-15.4) L 11/09/18 04:36 Hct 30.8 % (35.3-44.9) L 11/09/18 04:36 Plt Count 97 K/mcL (140-400) L 11/09/18 04:36 Neutrophils # 10.6 K/mcL (1.6-8.9) H 11/08/18 22:39 Lymphocytes # 0.3 K/mcL (0.6-4.6) L 11/08/18 22:39 Immature Plt Fraction 7.2 % (1.1-6.1) H 11/09/18 04:36 ABG pH 7.23 pH Units (7.32-7.45) L 11/08/18 20:59 ABG pO2 64 mmHg (85-104) L 11/08/18 20:59 ABG HCO3 18 mEq/L (21-27) L 11/08/18 20:59 ABG Total CO2 19 mEq/L (20-26) L 11/08/18 20:59 ABG O2 Saturation 88 % (95-98) L 11/08/18 20:59 ABG Base Excess -9 mEq/L (-2 to 3) L 11/08/18 20:59 Sodium 132 mEq/L (136-145) L 11/09/18 04:35 Chloride 108 mEq/L (98-107) H 11/09/18 04:35 Carbon Dioxide 18 mEq/L (23-29) L 11/09/18 04:35 Est GFR ( Amer) 59 (> 60) L 11/09/18 04:35 Est GFR (Non-Af Amer) 49 (> 60) L 11/09/18 04:35 Glucose 215 mg/dL (70-105) H 11/09/18 04:35 POC Glucose 201 mg/dL (70-99) H 11/09/18 03:54 Serum Osmolality 273 mOsm/kg (280-300) L 11/08/18 09:58 Calculated Osmolality 271 (280-300) L 11/08/18 02:16 Calcium 7.9 mg/dL (8.6-10.3) L 11/09/18 04:35 Consult Discharge Plan - Plan Referrals: Carlos Grace MD [Primary Care Provider] -
[2018-11-09] MEDS ORDERED: Ringers Solution, Lactated 1,000 ML IVC SCH (06:30)
[2018-11-09] MEDS: Ascorbic Acid 500 MG TABLET PO SCH ×2 (08:31→16:37)
[2018-11-09] MEDS: Multivit/Ca/Min/Fe/FA 1 TAB TABLET PO SCH (08:32)
[2018-11-09] MEDS: Budesonide/Formoterol 80/4.5 1 PUFF INH IH SCH ×2 (09:59→21:52)
--- NOTE | 2018-11-09 12:02 | Event Note ---
Date of Encounter: 11/09/18 Time of Encounter: 08:45 POD#1 s/p Right hip hemiarthroplasty, revision humeral component right total shoulder replacement reverse with fracture fixation [ Displaced right femoral neck fracture; Displaced comminuted periprosthetic right proximal humerus fracture] 11/08/18 Dr. Stock Patient seen at bedside. Sitting in chair. O2 via NC. A&Ox3. Patient has transient bouts of difficulty finding her words. No acute distress. Patient states extreme concern regarding inability to feel or move her right hand. We discussed that it is likely related to the nerve block most get prior to shoulder surgeries. Dressings and incision c/d/i No calf tenderness, erythema, or warmth. Sensation altered to RUE. Cap refill <2sec and skin warm. Neurovascularly intact b/l LE. Labwork, vitals, and medications reviewed. Pain control: Adequate Participating in therapy. All questions and concerns addressed. Educated on use of incentive spirometer, ambulation, and hydration. Patient educated on post-operative restrictions and care. Addressed: Patient stating that she believes her will be coming to see her this coming week which patient states she is excited about. NO SHOULDER OR ELBOW MOTION NONWEIGHTBEARING TO THE RUE REMAIN IN BRACE AT ALL TIMES. REMOVE FOR HYGIENE ONLY - NO SHOULDER OR ELBOW MOTION WBAT TO THE RLE FOLLOW HIP PRECAUTIONS FOR THE RIGHT HIP X 6 WEEKS POSTOPERATIVELY HIP ABDUCTION WEDGE X 6 WEEKS POSTOPERATIVELY Patient course and disposition discussed with Dr. Stock D/C plan: Anticipate ECF secondary to patient's spouse unlikely to be able to stay at home with her in the immediate future
[2018-11-09] MEDS: *HR* Enoxaparin 30 MG/0.3 ML SYRINGE SQ SCH (17:44)
[2018-11-09 17:59] LABS: VBG HCO3 18 mEq/L (21-27); VBG PCO2 36 mmHg (41-51); VBG PH 7.31 pH Units (7.32-7.42); VBG PO2 195 mmHg (25-50)
[2018-11-10] MEDS: Ipratropium/Albuterol Neb 3 ML IH SCH ×4 (03:53→22:40)
[2018-11-10 06:01] LABS: Basophils % 0.1 %; Eosinophils % 0.2 %; Hematocrit 26.4 % (35.3-44.9); Immature Granulocytes % 0.6 % (0-4); Lymphocytes # 1.3 K/mcL (0.6-4.6); Lymphocytes % 11.2 %; Mean Corpuscular HGB Conc 32.2 g/dL (31.6-35.5); Mean Corpuscular Hemoglobin 32.2 pg (28.0-33.3); Mean Platelet Volume 10.3 fL (9.4-12.4); Monocytes # 0.9 K/mcL (0.0-1.3); Monocytes % 7.5 %; Neutrophils # 9.1 K/mcL (1.6-8.9); Platelet Count 159 K/mcL (140-400); Red Blood Count 2.64 M/mcL (3.82-4.97); Red Cell Distribution Width 12.7 % (11.5-14.5); Segmented Neutrophils % 80.4 %; White Blood Count 11.3 K/mcL (4.3-11.1)
[2018-11-10 06:01] LABS: VBG HCO3 21 mEq/L (21-27); VBG PCO2 32 mmHg (41-51); VBG PH 7.42 pH Units (7.32-7.42); VBG PO2 176 mmHg (25-50)
[2018-11-10 06:05] LABS: Hemoglobin 8.5 g/dL (11.5-15.4)
[2018-11-10 06:19] LABS: BUN/Creatinine Ratio 21 (6-26); Blood Urea Nitrogen 18 mg/dL (8-23); Calcium 8.5 mg/dL (8.6-10.3); Carbon Dioxide 23 mEq/L (23-29); Chloride 105 mEq/L (98-107); Glucose 131 mg/dL (70-105); Osmolality,Calculated 282 (280-300); Potassium 4.3 mEq/L (3.5-5.1); Sodium 134 mEq/L (136-145); eGFR For African Americans > 60 (> 60); eGFR For Non-African Americans > 60 (> 60)
[2018-11-10] MEDS: *HR* Enoxaparin 30 MG/0.3 ML SYRINGE SQ SCH (06:20)
--- NOTE | 2018-11-10 06:25 | Orthopedics Progress Note ---
Date of Encounter: 11/10/18 Time of Encounter: 06:24 Subjective Interval history: Patient was seen this morning doing well without complaints. Afebrile vital signs stable. Operative extremities: Neurovascularly intact Dressing clean dry and intact Calves nontender Assessment and plan: Continue with postoperative care Hb 8.5, MARGARITA 85 plan for DC MARGARITA in the morning. Objective Vital signs: Vital Signs Temp Pulse Resp BP Pulse Ox 11/10/18 03:53 16 93 11/10/18 02:33 98.6 F 94 16 121/61 95 11/09/18 23:00 98.7 F 97 15 113/69 94 11/09/18 21:53 18 94 11/09/18 20:10 98.9 F 109 16 112/63 94 11/09/18 15:41 16 93 11/09/18 15:40 98.6 F 97 16 102/65 98 11/09/18 11:32 97.8 F 97 16 109/69 93 11/09/18 10:01 18 97 11/09/18 06:42 97.8 F 98 18 104/48 97 Intake and Output 11/09/18 11/09/18 11/10/18 15:59 23:59 07:59 Intake Total 940 / 1040 0 / 1040 0 / 0 Output Total 750 / 1580 385 / 1580 300 / 300 Balance 190 / -540 -385 / -540 -300 / -300 Intake: IV Fluids 100 / 200 Ancef 2,000 MG In 0.9 % Sodium 100 / 200 Chloride 100 ML @ 200 mls/hr IVPB Q8H [facility] Rx#:[id number] Oral 840 / 840 0 / 840 0 / 0 Output: Catheter 750 / 1525 350 / 1525 250 / 250 Wound Drainage 35 / 55 50 / 50 Right Shoulder 35 / 55 50 / 50 Other: Meal Lunch Percent of Meal Consumed 100% Weight 82.08 kg Patient Weight 11/10/18 23:59 Weight 82.08 kg - Labs CBC & BMP: 11/10/18 05:46 11/10/18 05:46 Labs: Abnormal lab results WBC 11.3 K/mcL (4.3-11.1) H 11/10/18 05:46 RBC 2.64 M/mcL (3.82-4.97) L 11/10/18 05:46 Hgb 8.5 g/dL (11.5-15.4) L D 11/10/18 05:46 Hct 26.4 % (35.3-44.9) L 11/10/18 05:46 Plt Count 97 K/mcL (140-400) L 11/09/18 04:36 Neutrophils # 10.6 K/mcL (1.6-8.9) H 11/08/18 22:39 Lymphocytes # 0.3 K/mcL (0.6-4.6) L 11/08/18 22:39 Immature Plt Fraction 7.2 % (1.1-6.1) H 11/09/18 04:36 ABG pH 7.23 pH Units (7.32-7.45) L 11/08/18 20:59 ABG pO2 64 mmHg (85-104) L 11/08/18 20:59 ABG HCO3 18 mEq/L (21-27) L 11/08/18 20:59 ABG Total CO2 19 mEq/L (20-26) L 11/08/18 20:59 ABG O2 Saturation 88 % (95-98) L 11/08/18 20:59 ABG Base Excess -9 mEq/L (-2 to 3) L 11/08/18 20:59 VBG pH 7.31 pH Units (7.32-7.42) L 11/09/18 17:57 VBG pCO2 32 mmHg (41-51) L 11/10/18 05:59 VBG pO2 176 mmHg (25-50) H 11/10/18 05:59 VBG HCO3 18 mEq/L (21-27) L 11/09/18 17:57 Sodium 134 mEq/L (136-145) L 11/10/18 05:46 Chloride 108 mEq/L (98-107) H 11/09/18 04:35 Carbon Dioxide 18 mEq/L (23-29) L 11/09/18 04:35 Est GFR ( Amer) 59 (> 60) L 11/09/18 04:35 Est GFR (Non-Af Amer) 49 (> 60) L 11/09/18 04:35 Glucose 131 mg/dL (70-105) H 11/10/18 05:46 POC Glucose 201 mg/dL (70-99) H 11/09/18 03:54 Serum Osmolality 273 mOsm/kg (280-300) L 11/08/18 09:58 Calculated Osmolality 271 (280-300) L 11/08/18 02:16 Calcium 8.5 mg/dL (8.6-10.3) L 11/10/18 05:46 Consult Discharge Plan - Plan Referrals: Carlos Grace MD [Primary Care Provider] -
[2018-11-10 06:29] LABS: Platelet Estimate Normal (Normal)
[2018-11-10] MEDS: Multivit/Ca/Min/Fe/FA 1 TAB TABLET PO SCH (08:02)
[2018-11-10] MEDS: Ascorbic Acid 500 MG TABLET PO SCH ×2 (08:03→17:05)
--- NOTE | 2018-11-10 08:40 | Internal Med Progress Note ---
<Gracie Servin - Last Filed: 11/10/18 14:10> Hospitalist Progress Note - Encounter Date of Encounter: 11/10/18 - Exam Vitals: Temp Pulse Resp BP Pulse Ox 97.9 F 99 16 114/72 94 11/10/18 11:39 11/10/18 11:39 11/10/18 11:39 11/10/18 11:39 11/10/18 11:39 - Time Spent with Patient Total time spent is greater than 50% in coordination of care (as documented) at patient's floor/unit and/or counseling patient: Internal Medicine: Result - Labs CBC & Chem 7: 11/10/18 13:40 11/10/18 05:46 Labs: Short CBC 11/10/18 11/10/18 Range/Units 05:46 13:40 WBC 11.3 H (4.3-11.1) K/mcL Hgb 8.5 L D 8.2 L (11.5-15.4) g/dL Hct 26.4 L 25.8 L (35.3-44.9) % Plt Count 159 D (140-400) K/mcL Neutrophils # 9.1 H (1.6-8.9) K/mcL BMP 11/10/18 05:46 Sodium 134 L Potassium 4.3 Chloride 105 Carbon Dioxide 23 BUN 18 Creatinine 0.87 Glucose 131 H Calcium 8.5 L - ABG Interpretation ABG results: ABG ABG pH 7.23 pH Units (7.32-7.45) L 11/08/18 20:59 ABG pCO2 43 mmHg (35-45) 11/08/18 20:59 ABG pO2 64 mmHg (85-104) L 11/08/18 20:59 ABG O2 Saturation 88 % (95-98) L 11/08/18 20:59 PT/INR, D-dimer PT 11.5 Seconds (9.4-12.1) 11/08/18 02:16 Consult Discharge Plan - Plan Referrals: Carlos Grace MD [Primary Care Provider] - - Attending Attestation I examined this patient and my medical decision-making was reviewed with the Resident Physician Dr Mondragon. I agree with the documented findings, disposition and treatment plan as described except to the extent set forth below. Ms Hernandez is observed for humerus and hip fractures requiring surgical intervention awakes to name, having some right shoulder pain, somnolent since morning opiate dose, denies sob on room air, no pain in leg gen- awake, ,appears stated age cv- reg rate and rhythm, normal s1,s2, lungs- ctabl, normal resp effort on room air msk- right hip and shoulder dressing c/d/i, extensive right upper extremity ecchymosis unchanged without palpable hematoma, cannot appreciate hematomas on msk eval neuro- AAOxperson, place, situation, CN grossly intact, moves ext without focal deficits Right femoral neck fracture /Right humeral fracture s/p OR - post op care per ortho, avoid excessive opiates as caused somolence, reduce further, stop lovenox vte ppx given worsening anemia, foot pumps ordered acute post operative blood loss anemia- hemodynamically stable, hgb cont to down trend, now in 8s on two checks today, no evident hematoma, stop lovenox for vte ppx, will check another hgb this evening and type and screen, there are no other identifiable sources of potential bleeding at this time HTN- normotensive with home acei held ETOH daily use- not in etoh w/d, ciwa Emphysema, stable, o2 sats stable on room air anxiety- takes librium at home- will provide 10 mg hs prn librium vte ppx foot pumps <Nedra Mondragon - Last Filed: 11/10/18 17:06> Hospitalist Progress Note - Encounter Date of Encounter: 11/10/18 Time of Encounter: 10:45 - Subjective Interval History: Patient seen examined at bedside she is no acute distress resting comfortably in bed. She has no complaints. She denies fever, chills, chest pain, shortness of breath. The patient's nurse noted that this morning after the patient received oxycodone for pain she was disoriented. Discuss with nurse to get more Tylenol instead of opiate today. - Exam Vitals: Temp Pulse Resp BP Pulse Ox 98.6 F 94 16 121/61 93 11/10/18 02:33 11/10/18 02:33 11/10/18 03:53 11/10/18 02:33 11/10/18 03:53 Exam: Gen.: Vitals noted. No acute distress. Alert and oriented HEENT: oropharynx clear, Normocephalic, atraumatic Cardiac: RRR, no murmur, +S1/S2 Pulmonary: CTA bilaterally, no wheezes, rales or rhonchi, equal chest expansion Abdomen: soft, nontender, Bowel sounds noted, no guarding Extremities: nontender calf, no cyanosis or clubbing, pulses present bilaterally. Ecchymosis on bilateral upper extremities Psych: Appropriate mood and behavior - Assessment and Plan (1) Closed right hip fracture Current Visit: Yes Status: Acute Assessment and Plan: Closed right hip fracture and right humeral fracture after a fall in the [place]. -[place] pelvic x-ray 11/06/18 showed impacted mildly displaced right femoral neck fracture with coxa valgus. -Right hip hemiarthroplasty 11/08/[address] Stock -pain is controlled -continue pain management with oxycodone for severe pain and Tylenol for mild pain. - Ortho following. -PT/OT recommend a rehab. -Social work following for placement rehab (2) Right humeral fracture Current Visit: Yes Status: Acute Assessment and Plan: Mechanical fall resulting in right humeral fracture -Shoulder x-ray 11/06/18 showed displaced angulated fracture of proximal humeral shaft -Revision right total shoulder replacement humeral side 11/08/[address] Stock -Plan as above (3) Anxiety and depression Current Visit: Yes Status: Acute Assessment and Plan: Patient has known history of anxiety and depression for which she takes paroxetine and Librium. -Continue paroxetine however holding Librium due to patient disorientation. Resume patient reports taking 20 mg Librium at that time and takes 10 mg PRN during the day. (4) Anemia Current Visit: Yes Status: Acute Assessment and Plan: Patient with acute blood loss anemia. Baseline hemoglobin 11 to 12 -hemoglobin 8.2 (9.6) -this is likely secondary to recent surgery -there has been no other obvious active bleeding however the patient does have ecchymosis and bilateral upper extremities. No hematoma was appreciated on examination. Plan -will continue to monitor hemoglobin and for bleeding -holding anticoagulation such as DVT prophylaxis to be sure hemoglobin stabilizes (5) Alcohol abuse Current Visit: Yes Status: Acute Assessment and Plan: Patient admits to drinking 3 beers tonight with her for a long time. -No evidence of withdrawal during hospitalization -She is currently on CIWA protocol -will continue to monitor (6) COPD (chronic obstructive pulmonary disease) Current Visit: Yes Status: Suspected Assessment and Plan: History of COPD. Significant smoking history. -Supplemental oxygen is needed -continue bronchodilators such as Symbicort and duonebs DVT Prophylaxis: SCD. Hold anticoagulation due to decreased hemoglobin - Time Spent with Patient Total time spent is greater than 50% in coordination of care (as documented) at patient's floor/unit and/or counseling patient: Internal Medicine: Result - Labs CBC & Chem 7: 11/10/18 13:40 11/10/18 05:46 Labs: Short CBC 11/10/18 Range/Units 05:46 WBC 11.3 H (4.3-11.1) K/mcL Hgb 8.5 L D (11.5-15.4) g/dL Hct 26.4 L (35.3-44.9) % Plt Count 159 D (140-400) K/mcL Neutrophils # 9.1 H (1.6-8.9) K/mcL BMP 11/10/18 05:46 Sodium 134 L Potassium 4.3 Chloride 105 Carbon Dioxide 23 BUN 18 Creatinine 0.87 Glucose 131 H Calcium 8.5 L - ABG Interpretation ABG results: ABG ABG pH 7.23 pH Units (7.32-7.45) L 11/08/18 20:59 ABG pCO2 43 mmHg (35-45) 11/08/18 20:59 ABG pO2 64 mmHg (85-104) L 11/08/18 20:59 ABG O2 Saturation 88 % (95-98) L 11/08/18 20:59 PT/INR, D-dimer PT 11.5 Seconds (9.4-12.1) 11/08/18 02:16 <Nedra Mondragon - Last Filed: 11/10/18 17:06> (1) Closed right hip fracture Qualifiers: Encounter type: initial encounter Qualified Code(s): S72.001A - Fracture of unspecified part of neck of right femur, initial encounter for closed fracture (2) Right humeral fracture Qualifiers: Encounter type: initial encounter Humerus Location: proximal Fracture type: closed Fracture morphology: unspecified fracture morphology Qualified Code(s): S42.201A - Unspecified fracture of upper end of right humerus, initial encounter for closed fracture
[2018-11-10] MEDS: Budesonide/Formoterol 80/4.5 1 PUFF INH IH SCH ×2 (11:18→22:39)
[2018-11-10 13:51] LABS: Hematocrit 25.8 % (35.3-44.9); Hemoglobin 8.2 g/dL (11.5-15.4)
[2018-11-10 17:12] LABS: Hematocrit 26.4 % (35.3-44.9); Hemoglobin 8.4 g/dL (11.5-15.4)
[2018-11-10] MEDS: Acetaminophen 325 MG TABLET PO PRN (19:17)
[2018-11-10] MEDS ORDERED: Aspirin 81 MG TAB.CHEW PO SCH (21:00)
[2018-11-11] MEDS ORDERED: Acetaminophen IV 500 MG/50 ML INFUS..BTL IVPB ONE (03:05)
[2018-11-11] MEDS: Ipratropium/Albuterol Neb 3 ML IH SCH ×4 (04:15→22:42)
--- NOTE | 2018-11-11 07:18 | Orthopedics Progress Note ---
Date of Encounter: 11/11/18 Time of Encounter: 07:17 Subjective Interval history: Patient was seen this morning doing well without complaints. Afebrile vital signs stable. Operative extremities: Neurovascularly intact Dressing clean dry and intact shoulder, hip dressing with drainage, wound is clean dry and intact dressing changed Calves nontender Assessment and plan: Continue with postoperative care DC MARGARITA drain Objective Vital signs: Vital Signs Temp Pulse Pulse Pulse Resp BP Pulse Ox 11/11/18 04:17 18 96 11/11/18 03:58 97.9 F 98 16 116/73 95 11/11/18 00:09 98.8 F 107 16 96/65 91 11/10/18 23:52 97.6 F 108 19 97/55 88 11/10/18 22:43 16 92 11/10/18 19:49 98 98 11/10/18 19:23 97.4 F L 108 19 120/65 91 11/10/18 16:04 16 97 11/10/18 15:30 98.7 F 98 16 113/69 95 11/10/18 11:39 97.9 F 99 16 114/72 94 11/10/18 11:18 16 88 11/10/18 08:44 98.4 F 92 16 117/73 93 Intake and Output 11/10/18 11/10/18 11/11/18 15:59 23:59 07:59 Intake Total 840 / 840 Output Total 0 / 750 50 / 750 50 / 50 Balance 840 / 90 -50 / 90 -50 / -50 Intake: IV Fluids 600 / 600 Lactated Ringers 1,000 ML @ 75 600 / 600 mls/hr IVC .[id number] Rx#: [id number] Oral 240 / 240 Output: Wound Drainage 0 / 100 50 / 100 50 / 50 Right Shoulder 0 / 100 50 / 100 50 / 50 Other: Meal Breakfast Dinner Percent of Meal Consumed 90% 90% # Voids 1 # Urine Diapers 1 1 - Labs CBC & BMP: 11/10/18 17:00 11/10/18 05:46 Labs: Abnormal lab results WBC 11.3 K/mcL (4.3-11.1) H 11/10/18 05:46 RBC 2.64 M/mcL (3.82-4.97) L 11/10/18 05:46 Hgb 8.4 g/dL (11.5-15.4) L 11/10/18 17:00 Hct 26.4 % (35.3-44.9) L 11/10/18 17:00 Plt Count 97 K/mcL (140-400) L 11/09/18 04:36 Neutrophils # 9.1 K/mcL (1.6-8.9) H 11/10/18 05:46 Lymphocytes # 0.3 K/mcL (0.6-4.6) L 11/08/18 22:39 Immature Plt Fraction 7.2 % (1.1-6.1) H 11/09/18 04:36 ABG pH 7.23 pH Units (7.32-7.45) L 11/08/18 20:59 ABG pO2 64 mmHg (85-104) L 11/08/18 20:59 ABG HCO3 18 mEq/L (21-27) L 11/08/18 20:59 ABG Total CO2 19 mEq/L (20-26) L 11/08/18 20:59 ABG O2 Saturation 88 % (95-98) L 11/08/18 20:59 ABG Base Excess -9 mEq/L (-2 to 3) L 11/08/18 20:59 VBG pH 7.31 pH Units (7.32-7.42) L 11/09/18 17:57 VBG pCO2 32 mmHg (41-51) L 11/10/18 05:59 VBG pO2 176 mmHg (25-50) H 11/10/18 05:59 VBG HCO3 18 mEq/L (21-27) L 11/09/18 17:57 Sodium 134 mEq/L (136-145) L 11/10/18 05:46 Chloride 108 mEq/L (98-107) H 11/09/18 04:35 Carbon Dioxide 18 mEq/L (23-29) L 11/09/18 04:35 Est GFR ( Amer) 59 (> 60) L 11/09/18 04:35 Est GFR (Non-Af Amer) 49 (> 60) L 11/09/18 04:35 Glucose 131 mg/dL (70-105) H 11/10/18 05:46 POC Glucose 201 mg/dL (70-99) H 11/09/18 03:54 Serum Osmolality 273 mOsm/kg (280-300) L 11/08/18 09:58 Calculated Osmolality 271 (280-300) L 11/08/18 02:16 Calcium 8.5 mg/dL (8.6-10.3) L 11/10/18 05:46 Consult Discharge Plan - Plan Referrals: Carlos Grace MD [Primary Care Provider] -
[2018-11-11 07:56] LABS: Basophils % 0.3 %; Eosinophils # 0.2 K/mcL (0.0-0.6); Eosinophils % 3.1 %; Hematocrit 24.8 % (35.3-44.9); Hemoglobin 8.2 g/dL (11.5-15.4); Immature Granulocytes % 0.4 % (0-4); Lymphocytes # 1.5 K/mcL (0.6-4.6); Lymphocytes % 19.4 %; Mean Corpuscular HGB Conc 33.1 g/dL (31.6-35.5); Mean Corpuscular Hemoglobin 32.5 pg (28.0-33.3); Mean Corpuscular Volume 98.4 fL (83.0-100.0); Mean Platelet Volume 10.1 fL (9.4-12.4); Monocytes # 0.8 K/mcL (0.0-1.3); Monocytes % 9.9 %; Neutrophils # 5.1 K/mcL (1.6-8.9); Platelet Count 182 K/mcL (140-400); Red Blood Count 2.52 M/mcL (3.82-4.97); Red Cell Distribution Width 12.7 % (11.5-14.5); Segmented Neutrophils % 66.9 %; White Blood Count 7.6 K/mcL (4.3-11.1)
--- NOTE | 2018-11-11 07:58 | Internal Med Progress Note ---
<Gracie Servin - Last Filed: 11/11/18 12:51> Hospitalist Progress Note - Encounter Date of Encounter: 11/11/18 - Exam Vitals: Temp Pulse Resp BP Pulse Ox 98.5 F 109 16 97/58 92 11/11/18 07:44 11/11/18 07:44 11/11/18 11:24 11/11/18 07:44 11/11/18 11:24 - Time Spent with Patient Total time spent is greater than 50% in coordination of care (as documented) at patient's floor/unit and/or counseling patient: Internal Medicine: Result - Labs CBC & Chem 7: 11/11/18 07:26 11/11/18 08:36 Labs: Short CBC 11/10/18 11/10/18 11/11/18 Range/Units 13:40 17:00 07:26 WBC 7.6 (4.3-11.1) K/mcL Hgb 8.2 L 8.4 L 8.2 L (11.5-15.4) g/dL Hct 25.8 L 26.4 L 24.8 L (35.3-44.9) % Plt Count 182 (140-400) K/mcL Neutrophils # 5.1 (1.6-8.9) K/mcL BMP 11/11/18 11/11/18 07:26 08:36 Sodium 135 L 135 L Potassium 4.1 4.1 Chloride 102 102 Carbon Dioxide 26 24 BUN 12 12 Creatinine 0.80 0.77 Glucose 106 H 103 Calcium 8.2 L 8.2 L - ABG Interpretation ABG results: ABG ABG pH 7.23 pH Units (7.32-7.45) L 11/08/18 20:59 ABG pCO2 43 mmHg (35-45) 11/08/18 20:59 ABG pO2 64 mmHg (85-104) L 11/08/18 20:59 ABG O2 Saturation 88 % (95-98) L 11/08/18 20:59 PT/INR, D-dimer PT 11.5 Seconds (9.4-12.1) 11/08/18 02:16 - Impressions Impressions Chest X-Ray 11/11/18 08:12 IMPRESSION: Small right lower lobe opacity is nonspecific but likely atelectasis. D/ / 11/11/2018 11:26:19 Carlos Call MD / agata Interpreting Provider: Carlos Call MD Consult Discharge Plan - Plan Referrals: Carlos Grace MD [Primary Care Provider] - - Attending Attestation I examined this patient and my medical decision-making was reviewed with the Resident Physician Dr Mondragon. I agree with the documented findings, disposition and treatment plan as described except to the extent set forth below. Ms Hernandez is observed for humerus and hip fractures requiring surgical intervention Team overnight noted she was confused and that she had aphasia since admission that is unchanged and resolved? Unsure if this was for another pt. Ms Hernandez has had no aphasia since admission and continues to have none now. awake, she is very upset today bc her is not answering his phone and family is not coming to visit her. She is awake and oriented x3 carrying full conversation without any confusion or speech difficulty. She is visibly stressed and saddened by the fact her family won't be in to see her. She has had multiple complaints today (blanket under her leg hurting her leg, double vision when she tilts her head back and looks up but none now, long time blurry vision for which she needs new glasses but hasn't been into see her new eye doctor, a "twinge" of chest pain that was fleeting without associated symptoms). Her nurse then joined at bedside. Pt feeling well now. Her only complaint is her loneliness. She will notify us if she has any return of symptoms. She denies sob, dizziness. pain in ext is well controlled. gen- awake, ,appears stated age cv- reg rate and rhythm, normal s1,s2, no le edema lungs- ctabl, normal resp effort on O2 NC msk- right hip and shoulder dressing c/d/i, extensive right upper extremity ecchymosis down arm ad toward shoulder blade, MARGARITA drain with scant red drainage, no palpable hematoma, no ecchymosis RLE, no palpable hematoma neuro- AAOxperson, place, situation, CN grossly intact, moves ext without focal deficits Right femoral neck fracture /Right humeral fracture s/p OR - post op care per ortho, avoid excessive opiates as caused somolence, stop lovenox vte ppx and ASA vte ppx dosing given her anemia which is not yet uptrending, foot pumps ordered acute post operative blood loss anemia- hemodynamically stable, no evident hematoma, there are no other identifiable sources of potential bleeding at this time HTN- normotensive with home acei held ETOH daily use- not in etoh w/d, ciwa Emphysema, stable, o2 sats stable on room air - repeat CXR ordered, incentive spirometry anxiety- takes librium at home- given her significant anxiety/stress today will make 10 mg BID prn librium available vte ppx foot pumps <Nedra Mondragon - Last Filed: 11/11/18 14:21> Hospitalist Progress Note - Encounter Date of Encounter: 11/11/18 Time of Encounter: 08:40 - Subjective Interval History: Patient seen exam nausea is resting comfortably in bed. She complains in his tearful that her and family have not visited her and they are not taken her phone calls. She reports her pain is under control intolerable. She denies fever, chills, shortness of breath, chest pain. The patient has no difficulty was speaking and is not aphasic. - Exam Vitals: Temp Pulse Resp BP Pulse Ox 98.5 F 109 18 97/58 99 11/11/18 07:44 11/11/18 07:44 11/11/18 07:44 11/11/18 07:44 11/11/18 07:44 Exam: Gen.: Vitals noted. No acute distress. Alert and oriented HEENT: oropharynx clear, Normocephalic, atraumatic Cardiac: RRR, no murmur, +S1/S2 Pulmonary: CTA bilaterally, no wheezes, rales or rhonchi, equal chest expansion Abdomen: soft, nontender, Bowel sounds noted, no guarding neuro: the patient is alert and oriented times 3. She is not aphasic. Extremities: nontender calf, no cyanosis or clubbing, pulses present bilaterally. Ecchymosis on bilateral upper extremities Psych: Appropriate mood and behavior - Assessment and Plan (1) Closed right hip fracture Current Visit: Yes Status: Acute Assessment and Plan: Closed right hip fracture and right humeral fracture after a fall in the [place]. -[place] pelvic x-ray 11/06/18 showed impacted mildly displaced right femoral neck fracture with coxa valgus. -Right hip hemiarthroplasty 11/08/[address] Stock -pain is controlled -continue pain management with oxycodone for severe pain and Tylenol for mild pain. - Ortho following. -PT/OT recommend a rehab. -Social work following for placement rehab (2) Right humeral fracture Current Visit: Yes Status: Acute Assessment and Plan: Mechanical fall resulting in right humeral fracture -Shoulder x-ray 11/06/18 showed displaced angulated fracture of proximal humeral shaft -Revision right total shoulder replacement humeral side 11/08/[address] Stock -Plan as above (3) Alcohol abuse Current Visit: Yes Status: Acute Assessment and Plan: Patient admits to drinking 3 beers tonight with her for a long time. -No evidence of withdrawal during hospitalization -She is currently on CIWA protocol -will continue to monitor -Librium 10 mg b.i.d. is ordered for anxiety PRN which patient actually takes for anxiety (4) Anemia Current Visit: Yes Status: Acute Assessment and Plan: Patient with acute blood loss anemia. Baseline hemoglobin 11 to 12 -hemoglobin 8.2 (9.6) -this is likely secondary to recent surgery -urinalysis unremarkable -there has been no other obvious active bleeding however the patient does have ecchymosis and bilateral upper extremities. No hematoma was appreciated on examination. Plan -will continue to monitor hemoglobin and for bleeding -holding anticoagulation such as DVT prophylaxis to be sure hemoglobin stabilizes (5) COPD (chronic obstructive pulmonary disease) Current Visit: Yes Status: Suspected Assessment and Plan: History of COPD. Significant smoking history. -Chest x-ray showing right lower lobe atelectasis -Supplemental oxygen is needed -continue bronchodilators such as Symbicort and duonebs (6) Anxiety and depression Current Visit: Yes Status: Acute Assessment and Plan: Patient has known history of anxiety and depression for which she takes paroxetine and Librium. -Continue paroxetine -will restart patient's Librium by at dosing of 10 mg b.i.d. PRN anxiety (7) DVT prophylaxis Current Visit: Yes Status: Acute Assessment and Plan: SCD. Hold anticoagulation due to decreased hemoglobin - Time Spent with Patient Total time spent is greater than 50% in coordination of care (as documented) at patient's floor/unit and/or counseling patient: Internal Medicine: Result - Labs CBC & Chem 7: 11/11/18 07:26 11/11/18 08:36 Labs: Short CBC 11/10/18 11/10/18 Range/Units 13:40 17:00 Hgb 8.2 L 8.4 L (11.5-15.4) g/dL Hct 25.8 L 26.4 L (35.3-44.9) % - ABG Interpretation ABG results: ABG ABG pH 7.23 pH Units (7.32-7.45) L 11/08/18 20:59 ABG pCO2 43 mmHg (35-45) 11/08/18 20:59 ABG pO2 64 mmHg (85-104) L 11/08/18 20:59 ABG O2 Saturation 88 % (95-98) L 11/08/18 20:59 PT/INR, D-dimer PT 11.5 Seconds (9.4-12.1) 11/08/18 02:16 <Nedra Mondragon - Last Filed: 11/11/18 14:21> (1) Closed right hip fracture Qualifiers: Encounter type: initial encounter Qualified Code(s): S72.001A - Fracture of unspecified part of neck of right femur, initial encounter for closed fracture (2) Right humeral fracture Qualifiers: Encounter type: initial encounter Humerus Location: proximal Fracture type: closed Fracture morphology: unspecified fracture morphology Qualified Code(s): S42.201A - Unspecified fracture of upper end of right humerus, initial encounter for closed fracture
[2018-11-11] MEDS ORDERED: Sennosides 8.6 MG TABLET PO PRN (08:11)
[2018-11-11 08:18] LABS: BUN/Creatinine Ratio 15 (6-26); Blood Urea Nitrogen 12 mg/dL (8-23); Calcium 8.2 mg/dL (8.6-10.3); Carbon Dioxide 26 mEq/L (23-29); Chloride 102 mEq/L (98-107); Glucose 106 mg/dL (70-105); Osmolality,Calculated 280 (280-300); Potassium 4.1 mEq/L (3.5-5.1); Sodium 135 mEq/L (136-145); eGFR For African Americans > 60 (> 60); eGFR For Non-African Americans > 60 (> 60)
[2018-11-11 09:12] LABS: BUN/Creatinine Ratio 16 (6-26); Blood Urea Nitrogen 12 mg/dL (8-23); Calcium 8.2 mg/dL (8.6-10.3); Carbon Dioxide 24 mEq/L (23-29); Chloride 102 mEq/L (98-107); Glucose 103 mg/dL (70-105); Magnesium 1.8 mg/dL (1.6-2.6); Osmolality,Calculated 280 (280-300); Potassium 4.1 mEq/L (3.5-5.1); Sodium 135 mEq/L (136-145); eGFR For African Americans > 60 (> 60); eGFR For Non-African Americans > 60 (> 60)
[2018-11-11] MEDS: Acetaminophen 325 MG TABLET PO PRN ×2 (09:31→18:02)
[2018-11-11] MEDS: Ascorbic Acid 500 MG TABLET PO SCH ×2 (09:31→18:01)
[2018-11-11] MEDS: Multivit/Ca/Min/Fe/FA 1 TAB TABLET PO SCH (09:31)
[2018-11-11] MEDS: Budesonide/Formoterol 80/4.5 1 PUFF INH IH SCH ×2 (11:24→22:42)
[2018-11-11 13:33] LABS: Bilirubin,Urine Negative (Negative); Blood,Urine Negative (Negative); Clarity,Urine Clear (Clear); Color,Urine Yellow (Yellow); Glucose,Urine (UA) Normal (Normal); Ketones,Urine Negative (Negative); Leukocyte Esterase,Urine Negative (Negative); Nitrite,Urine Negative (Negative); PH,Urine 6.5 pH Units (5.0-8.0); Protein,Urine Negative (Neg-Trace); Specific Gravity,Urine 1.016 (1.010-1.025); Urobilinogen,Urine Normal (Normal)
[2018-11-11 13:46] LABS: Amphetamine Screen,Urine Negative ng/mL (Cutoff=1000); Barbiturate Screen,Urine Negative ng/mL (Cutoff=200); Benzodiazepines Screen,Urine Positive ng/mL (Cutoff=200); Cannabinoid Screen,Urine Negative ng/mL (Cutoff = 50); Cocaine Screen,Urine Negative ng/mL (Cutoff= 300); Opiate Screen,Urine Positive ng/mL (Cutoff=300); Phencyclidine Screen,Urine Negative ng/mL (Cutoff=25)
[2018-11-12] MEDS: Ipratropium/Albuterol Neb 3 ML IH SCH ×4 (04:31→22:37)
--- NOTE | 2018-11-12 06:38 | Orthopedics Progress Note ---
Date of Encounter: 11/12/18 Time of Encounter: 06:37 Subjective Interval history: Patient was seen this morning doing well without complaints. Afebrile vital signs stable. Operative extremities: Neurovascularly intact Dressing clean dry and intact shoulder,and hip Calves nontender Assessment and plan: Continue with postoperative care Work on disposition today, drainage of right hip slowing down. Objective Vital signs: Vital Signs Temp Pulse Resp BP Pulse Ox 11/12/18 06:18 97.2 F L 87 18 119/21 100 11/12/18 04:40 97.8 F 85 18 105/56 95 11/12/18 04:34 16 92 11/11/18 23:56 97.9 F 98 16 110/62 93 11/11/18 22:40 16 98 11/11/18 19:31 98.4 F 99 20 131/78 95 11/11/18 16:05 16 94 11/11/18 11:24 16 92 11/11/18 07:44 98.5 F 109 18 97/58 99 Intake and Output 11/11/18 11/11/18 11/12/18 15:59 23:59 07:59 Intake Total 240 / 940 700 / 940 0 / 0 Output Total 280 / 395 65 / 395 Balance -40 / 545 635 / 545 0 / 0 Intake: Oral 240 / 940 700 / 940 0 / 0 Output: Urine 0 / 0 Straight Cath 250 / 250 Wound Drainage 30 / 145 65 / 145 Right Shoulder 30 / 145 65 / 145 Other: Meal Lunch Dinner Percent of Meal Consumed 100% 90% # Voids 1 1 Weight 83.14 kg Patient Weight 11/12/18 23:59 Weight 83.14 kg - Labs CBC & BMP: 11/11/18 07:26 11/11/18 08:36 Labs: Abnormal lab results WBC 11.3 K/mcL (4.3-11.1) H 11/10/18 05:46 RBC 2.52 M/mcL (3.82-4.97) L 11/11/18 07:26 Hgb 8.2 g/dL (11.5-15.4) L 11/11/18 07:26 Hct 24.8 % (35.3-44.9) L 11/11/18 07:26 Plt Count 97 K/mcL (140-400) L 11/09/18 04:36 Neutrophils # 9.1 K/mcL (1.6-8.9) H 11/10/18 05:46 Lymphocytes # 0.3 K/mcL (0.6-4.6) L 11/08/18 22:39 Immature Plt Fraction 7.2 % (1.1-6.1) H 11/09/18 04:36 ABG pH 7.23 pH Units (7.32-7.45) L 11/08/18 20:59 ABG pO2 64 mmHg (85-104) L 11/08/18 20:59 ABG HCO3 18 mEq/L (21-27) L 11/08/18 20:59 ABG Total CO2 19 mEq/L (20-26) L 11/08/18 20:59 ABG O2 Saturation 88 % (95-98) L 11/08/18 20:59 ABG Base Excess -9 mEq/L (-2 to 3) L 11/08/18 20:59 VBG pH 7.31 pH Units (7.32-7.42) L 11/09/18 17:57 VBG pCO2 32 mmHg (41-51) L 11/10/18 05:59 VBG pO2 176 mmHg (25-50) H 11/10/18 05:59 VBG HCO3 18 mEq/L (21-27) L 11/09/18 17:57 Sodium 135 mEq/L (136-145) L 11/11/18 08:36 Chloride 108 mEq/L (98-107) H 11/09/18 04:35 Carbon Dioxide 18 mEq/L (23-29) L 11/09/18 04:35 Est GFR ( Amer) 59 (> 60) L 11/09/18 04:35 Est GFR (Non-Af Amer) 49 (> 60) L 11/09/18 04:35 Glucose 106 mg/dL (70-105) H 11/11/18 07:26 POC Glucose 201 mg/dL (70-99) H 11/09/18 03:54 Serum Osmolality 273 mOsm/kg (280-300) L 11/08/18 09:58 Calculated Osmolality 271 (280-300) L 11/08/18 02:16 Calcium 8.2 mg/dL (8.6-10.3) L 11/11/18 08:36 Urine Opiates Screen Positive ng/mL (Izljhp=930) H 11/11/18 13:28 U Benzodiazepines Scrn Positive ng/mL (Amlthn=841) H 11/11/18 13:28 Consult Discharge Plan - Plan Referrals: Carlos Grace MD [Primary Care Provider] -
[2018-11-12] MEDS ORDERED: Levothyroxine 25 MCG TABLET PO ONE (08:00)
[2018-11-12 08:05] LABS: Basophils % 0.4 %; Eosinophils # 0.4 K/mcL (0.0-0.6); Eosinophils % 4.6 %; Hematocrit 27.1 % (35.3-44.9); Hemoglobin 8.8 g/dL (11.5-15.4); Immature Granulocytes % 0.4 % (0-4); Lymphocytes # 1.3 K/mcL (0.6-4.6); Lymphocytes % 15.5 %; Mean Corpuscular HGB Conc 32.5 g/dL (31.6-35.5); Mean Corpuscular Hemoglobin 31.5 pg (28.0-33.3); Mean Corpuscular Volume 97.1 fL (83.0-100.0); Mean Platelet Volume 9.7 fL (9.4-12.4); Monocytes # 0.6 K/mcL (0.0-1.3); Monocytes % 7.9 %; Neutrophils # 5.8 K/mcL (1.6-8.9); Platelet Count 208 K/mcL (140-400); Red Blood Count 2.79 M/mcL (3.82-4.97); Red Cell Distribution Width 12.8 % (11.5-14.5); Segmented Neutrophils % 71.2 %; White Blood Count 8.1 K/mcL (4.3-11.1)
[2018-11-12 08:25] LABS: BUN/Creatinine Ratio 13 (6-26); Blood Urea Nitrogen 10 mg/dL (8-23); Calcium 8.7 mg/dL (8.6-10.3); Carbon Dioxide 27 mEq/L (23-29); Chloride 100 mEq/L (98-107); Glucose 124 mg/dL (70-105); Osmolality,Calculated 282 (280-300); Potassium 4.1 mEq/L (3.5-5.1); Sodium 136 mEq/L (136-145); eGFR For African Americans > 60 (> 60); eGFR For Non-African Americans > 60 (> 60)
--- NOTE | 2018-11-12 08:52 | Internal Med Progress Note ---
<Gracie Servin - Last Filed: 11/12/18 16:01> Hospitalist Progress Note - Encounter Date of Encounter: 11/12/18 - Exam Vitals: Temp Pulse Resp BP Pulse Ox 98.4 F 100 17 120/72 97 11/12/18 15:24 11/12/18 15:24 11/12/18 15:24 11/12/18 15:24 11/12/18 15:24 - Assessment and Plan (1) Anxiety and depression Current Visit: Yes Status: Acute (2) Right humeral fracture Current Visit: Yes Status: Acute (3) Closed right hip fracture Current Visit: Yes Status: Acute (4) DVT prophylaxis Current Visit: Yes Status: Acute (5) Alcohol abuse Current Visit: Yes Status: Acute (6) COPD (chronic obstructive pulmonary disease) Current Visit: Yes Status: Suspected (7) Anemia Current Visit: Yes Status: Acute - Time Spent with Patient Total time spent is greater than 50% in coordination of care (as documented) at patient's floor/unit and/or counseling patient: Internal Medicine: Result - Labs CBC & Chem 7: 11/12/18 07:53 11/12/18 07:53 Labs: Short CBC 11/12/18 Range/Units 07:53 WBC 8.1 (4.3-11.1) K/mcL Hgb 8.8 L (11.5-15.4) g/dL Hct 27.1 L (35.3-44.9) % Plt Count 208 (140-400) K/mcL Neutrophils # 5.8 (1.6-8.9) K/mcL BMP 11/12/18 07:53 Sodium 136 Potassium 4.1 Chloride 100 Carbon Dioxide 27 BUN 10 Creatinine 0.80 Glucose 124 H Calcium 8.7 - ABG Interpretation ABG results: ABG ABG pH 7.23 pH Units (7.32-7.45) L 11/08/18 20:59 ABG pCO2 43 mmHg (35-45) 11/08/18 20:59 ABG pO2 64 mmHg (85-104) L 11/08/18 20:59 ABG O2 Saturation 88 % (95-98) L 11/08/18 20:59 PT/INR, D-dimer PT 11.5 Seconds (9.4-12.1) 11/08/18 02:16 Consult Discharge Plan - Plan Referrals: Carlos Grace MD [Primary Care Provider] - - Attending Attestation I examined this patient and my medical decision-making was reviewed with the Resident Physician Dr George. I agree with the documented findings, disposition and treatment plan as described except to the extent set forth below. Ms Hernandez is observed for humerus and hip fractures requiring surgical intervention awake, no complaints, pain well controlled, no sob or chest pain today. remains anxious bc not here visiting but did talk on phone last night. gen- awake, ,appears stated age cv- reg rate and rhythm, normal s1,s2 lungs- ctabl, normal resp effort on O2 NC msk- right hip and shoulder dressing c/d/i, extensive right upper extremity ecchymosis no palpable hematoma, no ecchymosis RLE, no palpable hematoma RLE neuro- AAOxperson, place, situation, CN grossly intact Right femoral neck fracture /Right humeral fracture s/p OR - post op care per ortho, avoid excessive opiates as caused somnolence, ok to resume ASA vte ppx as d/w ortho with hgb now uptrending acute post operative blood loss anemia- hemodynamically stable, no evident hematoma, there are no other identifiable sources of potential bleeding at this time HTN- normotensive with home acei held, cont to hold ETOH daily use- not in etoh w/d, ciwa Emphysema, stable- incentive spirometry, wean o2 nc to goal o2 sat 92% room air anxiety- takes librium at home- given her significant anxiety/stress 10 mg BID prn librium available, higher doses caused somolence and confusion dispo will be to swing bed- awaiting insurance auth for [place]- SW noting not expected until 11/13 at best, likely 11/14 she is med clear for dc pending placement <Wilberto George - Last Filed: 11/12/18 18:18> Hospitalist Progress Note - Encounter Date of Encounter: 11/12/18 Time of Encounter: 18:18 - Subjective Interval History: Pt was seen and examined at bedside. Complains of some sternal chest pain and upper abd pain. Says she's had this before and usually successful resolves it with aspirin. Says it is usually because of her anxiety. Otherwise complains that she is lonely, cannot get in contact with . Her son visited her yesterday which made her very happy. Ortho PA was present during exam. No other acute complaints. - Exam Vitals: Temp Pulse Resp BP Pulse Ox 97.6 F 83 16 111/73 100 11/12/18 08:30 11/12/18 08:30 11/12/18 08:30 11/12/18 08:30 11/12/18 08:30 Exam: Constitutional: alert, oriented, in no acute distress, oriented X 3, well nourished, well-developed Head: normocephalic, atraumatic Heart: normal, regular rate and rhythm, no murmurs, S1, S2 normal Lungs: clear to auscultation, no wheezes, rales, rhonchi Abdomen: soft, nontender, nondistended, no masses palpable, bowel sounds present and normal, no hepatosplenomegaly, no guarding or rigidity, no CVA tenderness Extremities: no clubbing, cyanosis, bilateral LE edema (no pitting), pulses +3/4 in all 4 extremities Skin: dry, intact, some discharge from right hip sutures, some bleeding from right elbow abrasions Psych: alert, oriented, cooperative with exam, good eye contact, cognitive function intact, judgement and insight good, speech clear, thought process logical, goal directed - Summary of Assessment and Plan Summary of Assessment and Plan: 1. Closed right hip fracture - s/p right hip hemiarthroplasty 11/08/[address] Stock - post-op hip xray unremarkable - continue pain management - ortho following: limit activity - discharge pending placement for SNF rehab, social work following 2. Right humeral fracture - s/p revision right total shoulder replacement humeral side 11/08/[address] Stock - post-op shoulder xray unremarkable - plan as above 3. Anxiety - pt admits to having chest and upper abd pain that has historically been assc with anxiety - continue librium (actually takes for anxiety) - continue paxil - continue to monitor 4. COPD - significant smoking hx, has hx of COPD - continue bronchodilators as needed 4. Anemia - current hgb 8.8 - likely 2/2 recent ortho surgery - no signs of significant active bleeding. Some bleeding from right elbow abrasions - continue to monitor for signs of bleeding - continue to monitor labs - was holding anticoagulation, will restart per ortho recs - can discharge on ASA 325mg bid 10d 5. DVT ppx - was on hold due to decreased hgb and bleeding risk - can restart per ortho recs - will be discharged on ASA 325mg bid 10d - Time Spent with Patient Total time spent is greater than 50% in coordination of care (as documented) at patient's floor/unit and/or counseling patient: Internal Medicine: Result - Labs CBC & Chem 7: 11/12/18 07:53 11/12/18 07:53 Labs: Short CBC 11/12/18 Range/Units 07:53 WBC 8.1 (4.3-11.1) K/mcL Hgb 8.8 L (11.5-15.4) g/dL Hct 27.1 L (35.3-44.9) % Plt Count 208 (140-400) K/mcL Neutrophils # 5.8 (1.6-8.9) K/mcL BMP 11/11/18 11/12/18 08:36 07:53 Sodium 135 L 136 Potassium 4.1 4.1 Chloride 102 100 Carbon Dioxide 24 27 BUN 12 10 Creatinine 0.77 0.80 Glucose 103 124 H Calcium 8.2 L 8.7 Urine 11/11/18 Range/Units 13:28 Urine Color Yellow (Yellow) Urine Clarity Clear (Clear) Urine pH 6.5 (5.0-8.0) pH Units Ur Specific [place] 1.016 (1.010-1.025) Urine Protein Negative (Neg-Trace) mg/dL Urine Glucose (UA) Normal (Normal) mg/dL - ABG Interpretation ABG results: ABG ABG pH 7.23 pH Units (7.32-7.45) L 11/08/18 20:59 ABG pCO2 43 mmHg (35-45) 11/08/18 20:59 ABG pO2 64 mmHg (85-104) L 11/08/18 20:59 ABG O2 Saturation 88 % (95-98) L 11/08/18 20:59 PT/INR, D-dimer PT 11.5 Seconds (9.4-12.1) 11/08/18 02:16 - Impressions Impressions Chest X-Ray 11/11/18 08:12 IMPRESSION: Small right lower lobe opacity is nonspecific but likely atelectasis. D/ / 11/11/2018 11:26:19 Carlos Call MD / agata Interpreting Provider: Carlos Call MD <Gracie Servin - Last Filed: 11/12/18 16:01> (2) Right humeral fracture Qualifiers: Encounter type: initial encounter Humerus Location: proximal Fracture type: closed Fracture morphology: unspecified fracture morphology Qualified Code(s): S42.201A - Unspecified fracture of upper end of right humerus, initial encounter for closed fracture (3) Closed right hip fracture Qualifiers: Encounter type: initial encounter Qualified Code(s): S72.001A - Fracture of unspecified part of neck of right femur, initial encounter for closed fracture
[2018-11-12] MEDS: Multivit/Ca/Min/Fe/FA 1 TAB TABLET PO SCH (09:02)
[2018-11-12] MEDS: Ascorbic Acid 500 MG TABLET PO SCH ×2 (09:03→17:12)
[2018-11-12] MEDS: Budesonide/Formoterol 80/4.5 1 PUFF INH IH SCH ×2 (09:32→22:37)
--- NOTE | 2018-11-12 14:26 | Event Note ---
Date of Encounter: 11/12/18 Time of Encounter: 09:15 POD#4 s/p Right hip hemiarthroplasty, revision humeral component right total shoulder replacement reverse with fracture fixation [ Displaced right femoral neck fracture; Displaced comminuted periprosthetic right proximal humerus fracture] 11/08/18 Dr. Stock Patient seen at bedside. Sitting in bed O2 via NC. A&Ox3. Patient tearful and emotionally labile. Dressings and incisions intact. Drainage appx 50% noted to right hip. Patient had MARGARITA drain removed yesterday. Dressing to Right shoulder noted to be coming off. Quarter sized area of drainage noted to the distal aspect of the dressing. No calf tenderness, erythema, or warmth. Sensation intact to RUE. Cap refill <2sec and skin warm. Wrist motion full. Filleter strength intact. Neurovascularly intact to all extremities. Labwork, vitals, and medications reviewed. Pain control: Adequate Participating in therapy. All questions and concerns addressed. Educated on use of incentive spirometer, ambulation, and hydration. Patient educated on post-operative restrictions and care. Addressed: Dressings to be changed today. Continue to monitor drainage closely. Patient stating she misses her and is sad she is not able to see him at present. She relates her son came to see her this weekend and that lifted her spirits. NO SHOULDER OR ELBOW MOTION NONWEIGHTBEARING TO THE RUE REMAIN IN BRACE AT ALL TIMES. REMOVE FOR HYGIENE ONLY - NO SHOULDER OR ELBOW MOTION Weightbearing as tolerated TO THE right hip FOLLOW HIP PRECAUTIONS FOR THE RIGHT HIP X 6 WEEKS POSTOPERATIVELY HIP ABDUCTION WEDGE X 6 WEEKS POSTOPERATIVELY Patient course and disposition discussed with Dr. Stock D/C plan: Awaiting acceptance/auth for rehab
--- NOTE | 2018-11-12 16:47 | Electrocardiograph Report ---
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
[2018-11-12] MEDS: Acetaminophen 325 MG TABLET PO PRN (17:12)
[2018-11-12] MEDS: Aspirin 325 MG TABLET PO SCH (21:43)
[2018-11-12] MEDS: Melatonin 3 MG TABLET PO PRN (21:55)
[2018-11-13] MEDS: Ipratropium/Albuterol Neb 3 ML IH SCH ×4 (03:45→22:38)
[2018-11-13 06:26] LABS: Basophils % 0.5 %; Eosinophils # 0.4 K/mcL (0.0-0.6); Hematocrit 26.2 % (35.3-44.9); Hemoglobin 8.6 g/dL (11.5-15.4); Immature Granulocytes % 0.7 % (0-4); Lymphocytes # 1.4 K/mcL (0.6-4.6); Lymphocytes % 17.4 %; Mean Corpuscular HGB Conc 32.8 g/dL (31.6-35.5); Mean Corpuscular Hemoglobin 31.9 pg (28.0-33.3); Mean Platelet Volume 9.9 fL (9.4-12.4); Monocytes # 0.7 K/mcL (0.0-1.3); Neutrophils # 5.6 K/mcL (1.6-8.9); Platelet Count 227 K/mcL (140-400); Segmented Neutrophils % 68.4 %; White Blood Count 8.2 K/mcL (4.3-11.1)
--- NOTE | 2018-11-13 06:33 | Orthopedics Progress Note ---
Date of Encounter: 11/13/18 Time of Encounter: 06:32 Subjective Interval history: Patient was seen this morning doing well without complaints. Afebrile vital signs stable. Operative extremities: Neurovascularly intact Dressing clean dry and intact shoulder,and hip Calves nontender Assessment and plan: Continue with postoperative care hb 8.6. Awaiting placement Objective Vital signs: Vital Signs Temp Pulse Resp BP Pulse Ox 11/13/18 03:45 15 90 11/13/18 03:15 98.0 F 84 16 118/75 92 11/12/18 22:38 18 96 11/12/18 22:02 98.3 F 85 17 129/77 98 11/12/18 18:45 98.0 F 89 17 113/61 97 11/12/18 15:24 98.4 F 100 17 120/72 97 11/12/18 15:23 18 98 11/12/18 11:18 98.6 F 90 18 107/63 98 11/12/18 09:32 18 99 11/12/18 08:30 97.6 F 83 16 111/73 100 Intake and Output 11/12/18 11/12/18 11/13/18 15:59 23:59 07:59 Intake Total 320 / 320 Balance 320 / 320 Intake: Oral 320 / 320 Other: Meal Breakfast Percent of Meal Consumed 50% # Voids 1 1 1 # Bowel Movements 1 Weight 83.3 kg Patient Weight 11/13/18 23:59 Weight 83.3 kg - Labs CBC & BMP: 11/13/18 06:06 11/12/18 07:53 Labs: Abnormal lab results WBC 11.3 K/mcL (4.3-11.1) H 11/10/18 05:46 RBC 2.70 M/mcL (3.82-4.97) L 11/13/18 06:06 Hgb 8.6 g/dL (11.5-15.4) L 11/13/18 06:06 Hct 26.2 % (35.3-44.9) L 11/13/18 06:06 Plt Count 97 K/mcL (140-400) L 11/09/18 04:36 Neutrophils # 9.1 K/mcL (1.6-8.9) H 11/10/18 05:46 Lymphocytes # 0.3 K/mcL (0.6-4.6) L 11/08/18 22:39 Immature Plt Fraction 7.2 % (1.1-6.1) H 11/09/18 04:36 ABG pH 7.23 pH Units (7.32-7.45) L 11/08/18 20:59 ABG pO2 64 mmHg (85-104) L 11/08/18 20:59 ABG HCO3 18 mEq/L (21-27) L 11/08/18 20:59 ABG Total CO2 19 mEq/L (20-26) L 11/08/18 20:59 ABG O2 Saturation 88 % (95-98) L 11/08/18 20:59 ABG Base Excess -9 mEq/L (-2 to 3) L 11/08/18 20:59 VBG pH 7.31 pH Units (7.32-7.42) L 11/09/18 17:57 VBG pCO2 32 mmHg (41-51) L 11/10/18 05:59 VBG pO2 176 mmHg (25-50) H 11/10/18 05:59 VBG HCO3 18 mEq/L (21-27) L 11/09/18 17:57 Sodium 135 mEq/L (136-145) L 11/11/18 08:36 Chloride 108 mEq/L (98-107) H 11/09/18 04:35 Carbon Dioxide 18 mEq/L (23-29) L 11/09/18 04:35 Est GFR ( Amer) 59 (> 60) L 11/09/18 04:35 Est GFR (Non-Af Amer) 49 (> 60) L 11/09/18 04:35 Glucose 124 mg/dL (70-105) H 11/12/18 07:53 POC Glucose 201 mg/dL (70-99) H 11/09/18 03:54 Serum Osmolality 273 mOsm/kg (280-300) L 11/08/18 09:58 Calculated Osmolality 271 (280-300) L 11/08/18 02:16 Calcium 8.2 mg/dL (8.6-10.3) L 11/11/18 08:36 Urine Opiates Screen Positive ng/mL (Saqbtk=859) H 11/11/18 13:28 U Benzodiazepines Scrn Positive ng/mL (Feovwm=272) H 11/11/18 13:28 Consult Discharge Plan - Plan Referrals: Lesly,Carlos S, MD [Primary Care Provider] -
[2018-11-13 06:47] LABS: BUN/Creatinine Ratio 14 (6-26); Blood Urea Nitrogen 9 mg/dL (8-23); Calcium 8.7 mg/dL (8.6-10.3); Carbon Dioxide 25 mEq/L (23-29); Chloride 99 mEq/L (98-107); Glucose 104 mg/dL (70-105); Osmolality,Calculated 279 (280-300); Potassium 3.4 mEq/L (3.5-5.1); Sodium 135 mEq/L (136-145); eGFR For African Americans > 60 (> 60); eGFR For Non-African Americans > 60 (> 60)
[2018-11-13] MEDS: Ascorbic Acid 500 MG TABLET PO SCH ×2 (09:25→17:29)
[2018-11-13] MEDS: Multivit/Ca/Min/Fe/FA 1 TAB TABLET PO SCH (09:25)
[2018-11-13] MEDS: Aspirin 325 MG TABLET PO SCH ×2 (09:25→22:21)
[2018-11-13] MEDS: Budesonide/Formoterol 80/4.5 1 PUFF INH IH SCH ×2 (10:54→22:38)
--- NOTE | 2018-11-13 15:12 | Discharge Summary ---
<Wilberto George - Last Filed: 11/13/18 17:48> - NOTES TO OUTPATIENT PROVIDER Notes to Outpatient Provider: Patient admitted for humerus and hip fractures requiring surgical intervention, 11/08/18 Dr. Stock. No complications. Anticoagulations started, ASA 325 MG bid 10 days per ortho recs (started om 11/12/18). Recovering well, being transferred to inpatient swing bed for ongoing rehabilitation. Date of Encounter: 11/13/18 Time of Encounter: 15:09 - Discharge Diagnosis (1) Unspecified rotator cuff tear or rupture of right shoulder, not specified as traumatic Priority: Primary Status: Acute (2) Closed right hip fracture Priority: Primary Status: Acute Qualifiers: Encounter type: initial encounter Qualified Code(s): S72.001A - Fracture of unspecified part of neck of right femur, initial encounter for closed fracture (3) Anxiety and depression Priority: Secondary Status: Chronic (4) Alcohol abuse Priority: Secondary Status: Chronic (5) COPD (chronic obstructive pulmonary disease) Priority: Secondary Status: Suspected Qualifiers: COPD type: unspecified COPD Qualified Code(s): J44.9 - Chronic obstructive pulmonary disease, unspecified (6) Anemia Priority: Secondary Status: Acute Qualifiers: Anemia type: other cause Other causes of anemia: other cause, not classified Qualified Code(s): D64.89 - Other specified anemias Hospital course: Ms. Hernandez is a 63 year old female who presented on 11/08/18 after a mechanical fall while vacationing in [place]. In [place] emergency room, x-rays showed was determined to have right displaced angulated fracture of proximal humeral shaft and right impacted mildly displaced right femoral neck fracture with Coxa valga. It was determined that patient would require surgery at this time. Patient requested to be transferred to [facility] for surgery by Dr. Stock who was her previous surgeon. Surgery was performed on 11/08/18. No complications during surgery. Chest CTA negative for pulmonary embolus. Head CT negative for acute intracranial abnormality. Patient experienced some postop anemia without evidence of active bleeding, likely secondary to blood loss during surgery. Postoperative hemoglobin stable. Postop course uncomplicated, unremarkable. Patient to be transferred to inpatient swing bed for ongoing rehabilitation. Patient has to follow-up with orthopedic surgery as scheduled. Discharge discussed with: patient - Time Spent with Patient Total time spent providing and/or coordinating discharge services: - Discharge Medications Prescriptions: New Ferrous Sulfate 325 mg PO BIDWM tablet Docusate [Colace] 100 mg PO BID capsule Aspirin 325 mg PO BID 8 Days #16 tablet Continued Albuterol Sulfate [Proventil Inhaler] 2 puff IH Q4HR PRN PRN Reason: Shortness Of Breath Paroxetine [Paxil] 30 mg PO QAM traZODone [TraZODone] 12.5 - 25 mg PO HS PRN PRN Reason: Sleep Ondansetron HCl [Zofran] 4 mg PO Q8H PRN PRN Reason: Nausea Acetaminophen [Tylenol] 325 - 650 mg PO Q4H PRN PRN Reason: Pain Levothyroxine Sodium [Synthroid] 137 mcg PO QAM Albuterol Sulfate [Ventolin Hfa] 1 puff IH Q4H PRN PRN Reason: Shortness Of Breath Discontinued Lisinopril [Zestril] 40 mg PO DAILY Morphine Sulfate [Morphine] 2.5 - 5 mg IV Q2-4H PRN PRN Reason: Pain Home Medications: Albuterol Sulfate [Proventil Inhaler] 2 puff IH Q4HR PRN 04/23/18 [History] Paroxetine [Paxil] 30 mg PO QAM 04/23/18 [History] Acetaminophen [Tylenol] 325 - 650 mg PO Q4H PRN 11/09/18 [History] Albuterol Sulfate [Ventolin Hfa] 1 puff IH Q4H PRN 11/09/18 [History] Levothyroxine Sodium [Synthroid] 137 mcg PO QAM 11/09/18 [History] Ondansetron HCl [Zofran] 4 mg PO Q8H PRN 11/09/18 [History] traZODone [TraZODone] 12.5 - 25 mg PO HS PRN 11/09/18 [History] Docusate [Colace] 100 mg PO BID capsule 11/12/18 [Rx] Ferrous Sulfate 325 mg PO BIDWM tablet 11/12/18 [Rx] Aspirin 325 mg PO BID 8 Days #16 tablet 11/13/18 [Rx] Allergies/Adverse Reactions: Allergy/AdvReac Type Severity Reaction Status Date / Time No Known Allergies Allergy Verified 04/23/18 08:52 Date of admission: 11/08/18 11:16 Primary care physician: Carlos Grace MD Consults: 11/08/18 01:46 Consult to Physician [CONS] Routine Consulting Provider: Mani Stock Reason for Consult: Left hip and left shoulder fracture Call Completed: Yes 11/09/18 06:22 Consult to Nutrition [CONS] Routine Comment: Consulting Provider: NUTRITION Reason for Dietary Consult: Other Other:: Proper nutrition to facilitate wound healing Consult to Occupational Therapy [CONS] Routine Comment: Evaluate, develop and implement POC Reason for Consult: post knee surgery Does patient have active BEDREST order?: No Is patient medically & hemodynamically stable?: Yes Consult to Orthopedic Navigator [CONS] [CONS] Routine Consult to Physical Therapy [CONS] Routine Comment: Evaluate, develop and impliment POC Reason for Consult: post knee surgery Does patient have active BEDREST order?: No Is patient medically & hemodynamically stable?: Yes Consult to Night Order Selector [CONS] Routine Reason for SW Consult: post op joint replacement RT Post Op Consult [CONS] Routine Discharging clinician: Wilberto George - Constitutional Vitals: Temp Pulse Resp BP Pulse Ox 97.2 F L 66 18 100/65 97 11/13/18 14:50 11/13/18 14:50 11/13/18 14:50 11/13/18 14:50 11/13/18 14:50 Exam: Constitutional: alert, oriented, in no acute distress, oriented X 3, well nourished, well-developed Head: normocephalic, atraumatic Heart: normal, regular rate and rhythm, no murmurs, S1, S2 normal Lungs: clear to auscultation, no wheezes, rales, rhonchi Abdomen: soft, nontender, nondistended, no masses palpable, bowel sounds present and normal, no hepatosplenomegaly, no guarding or rigidity, no CVA tenderness Extremities: no clubbing, cyanosis, bilateral LE edema (no pitting), pulses +3/4 in all 4 extremities Skin: dry, intact, incision sites are clean, dry, intact, without concerning discharge Psych: alert, oriented, cooperative with exam, good eye contact, cognitive function intact, judgement and insight good, speech clear, thought process logical, goal directed - Patient Status Disposition: Transfer Hospital Swing Bed Condition: Good Functional capacity at discharge: wheelchair bound Overall status at discharge: patient is progressing back to baseline - Discharge Instructions Follow Up With: Mani Stock MD [Partnered Physician] - (post-op follow up appt needed ) Carlos Grace MD [Primary Care Provider] - Additional Instructions: Please continue to follow orthopedic recommendations. Please continue home medications. Please take pain medications as directed. You may take 325 mg of aspirin twice daily for 10 days for anticoagulation. Follow-up with Dr. Stock as scheduled. Please return to the ED if you experience fevers, chills, chest pain, shortness of breath, or any other concerning symptoms. - Diet and Activity Activity: as per physical therapy, increase activity as tolerated Diet: regular diet <Gracie Servin - Last Filed: 11/13/18 18:27> Date of Encounter: 11/13/18 - Discharge Diagnosis (1) Anxiety and depression Status: Chronic (2) Right humeral fracture Status: Acute Qualifiers: Encounter type: initial encounter Humerus Location: proximal Fracture type: closed Fracture morphology: unspecified fracture morphology Qualified Code(s): S42.201A - Unspecified fracture of upper end of right humerus, initial encounter for closed fracture (3) Closed right hip fracture Status: Acute Qualifiers: Encounter type: initial encounter Qualified Code(s): S72.001A - Fracture of unspecified part of neck of right femur, initial encounter for closed fracture (4) DVT prophylaxis Status: Acute (5) Alcohol abuse Status: Chronic (6) COPD (chronic obstructive pulmonary disease) Status: Suspected Qualifiers: COPD type: unspecified COPD Qualified Code(s): J44.9 - Chronic obstructive pulmonary disease, unspecified (7) Anemia Status: Acute Qualifiers: Anemia type: other cause Other causes of anemia: other cause, not classified Qualified Code(s): D64.89 - Other specified anemias Hospital course: Ms. Hernandez is a 63 year old female - Time Spent with Patient Total time spent providing and/or coordinating discharge services: Date of admission: 11/08/18 11:16 Primary care physician: Carlos Grace MD Consults: 11/08/18 01:46 Consult to Physician [CONS] Routine Consulting Provider: Mani Stock Reason for Consult: Left hip and left shoulder fracture Call Completed: Yes 11/09/18 06:22 Consult to Nutrition [CONS] Routine Comment: Consulting Provider: NUTRITION Reason for Dietary Consult: Other Other:: Proper nutrition to facilitate wound healing Consult to Occupational Therapy [CONS] Routine Comment: Evaluate, develop and implement POC Reason for Consult: post knee surgery Does patient have active BEDREST order?: No Is patient medically & hemodynamically stable?: Yes Consult to Orthopedic Navigator [CONS] [CONS] Routine Consult to Physical Therapy [CONS] Routine Comment: Evaluate, develop and impliment POC Reason for Consult: post knee surgery Does patient have active BEDREST order?: No Is patient medically & hemodynamically stable?: Yes Consult to Night Order Selector [CONS] Routine Reason for SW Consult: post op joint replacement RT Post Op Consult [CONS] Routine - Constitutional Vitals: Temp Pulse Resp BP Pulse Ox 97.2 F L 66 18 100/65 995 11/13/18 14:50 11/13/18 14:50 11/13/18 15:51 11/13/18 14:50 11/13/18 15:51 - Attending Attestation I examined this patient and my medical decision-making was reviewed with the Resident Physician Dr George. I agree with the documented findings, disposition and treatment plan as described except to the extent set forth below. Ms Hernandez is observed for humerus and hip fractures requiring surgical intervention awake, pain controlled, no sob, constipation, or difficulty urinating. awaiting rehab bed and eager to go. Ortho PA at bedside and dc plan discussed w pt questions answered gen- awake, ,appears stated age cv- reg rate and rhythm, normal s1,s2 lungs- ctabl, normal resp effort on O2 NC msk- right hip and shoulder dressing c/d/i, extensive right upper extremity ecchymosis improved, neuro- AAOxperson, place, situation, CN grossly intact Right femoral neck fracture /Right humeral fracture s/p OR - post op care per ortho, avoid excessive opiates as caused somnolence, ASA vte ppx acute post operative blood loss anemia- hemodynamically stable, no evident hematoma, there are no other identifiable sources of potential bleeding at this time, outpt cbc in upcoming days HTN- normotensive with home acei held, cont to hold on dc ETOH daily use- no withdrawal this admisison Emphysema, stable- incentive spirometry dispo will be to swing bed-medically stable for dc and order placed for dc when insurance auth comes through time spent on dc 45 min
--- NOTE | 2018-11-13 15:22 | Physician Discharge Referral ---
<Gracie Servin - Last Filed: 11/13/18 18:27> ExtendedCare Referral Info Transfer To: swing bed Provider in Charge after Transfer: PCP - Diagnosis (1) Anxiety and depression Priority: Secondary Status: Chronic (2) Right humeral fracture Priority: Primary Status: Acute (3) Closed right hip fracture Priority: Primary Status: Acute (4) DVT prophylaxis Priority: Secondary Status: Acute (5) Alcohol abuse Priority: Secondary Status: Chronic (6) COPD (chronic obstructive pulmonary disease) Priority: Secondary Status: Suspected (7) Anemia Priority: Secondary Status: Acute - Transfer Medications Prescriptions: Aspirin 325 mg PO BID 8 Days #16 tablet Home Medications: Albuterol Sulfate [Proventil Inhaler] 2 puff IH Q4HR PRN 04/23/18 [History] Paroxetine [Paxil] 30 mg PO QAM 04/23/18 [History] Acetaminophen [Tylenol] 325 - 650 mg PO Q4H PRN 11/09/18 [History] Albuterol Sulfate [Ventolin Hfa] 1 puff IH Q4H PRN 11/09/18 [History] Levothyroxine Sodium [Synthroid] 137 mcg PO QAM 11/09/18 [History] Ondansetron HCl [Zofran] 4 mg PO Q8H PRN 11/09/18 [History] traZODone [TraZODone] 12.5 - 25 mg PO HS PRN 11/09/18 [History] Docusate [Colace] 100 mg PO BID capsule 11/12/18 [Rx] Ferrous Sulfate 325 mg PO BIDWM tablet 11/12/18 [Rx] Aspirin 325 mg PO BID 8 Days #16 tablet 11/13/18 [Rx] Allergies/Adverse Reactions: Allergy/AdvReac Type Severity Reaction Status Date / Time No Known Allergies Allergy Verified 04/23/18 08:52 - Respiratory Orders None Smoking Cessation: Smoking cessation has been advised. For more information, call the [place] Tobacco Quit Line at 3-862-DVWC-NOW. - Lab Orders Lab Orders: CBC (2 days) - Advance Directives Code Status: Full Code CERTIFICATION: I certify that the transfer of the above named patient to an Extended Care Facility is necessary for the continuing treatment of the diagnosis listed. The above information is true and accurate reflection of patient's current condition. Confidential - Redisclosure prohibited without a patient's written consent. <BonifacioKaren E - Last Filed: 11/14/18 09:09> ExtendedCare Referral Info Transfer To: [facility] - Diagnosis (1) History of right hip hemiarthroplasty Priority: Primary Status: Acute (2) Closed right hip fracture Priority: Primary Status: Acute (3) Status post reverse total arthroplasty of right shoulder Priority: Primary Status: Acute (4) Periprosthetic fracture around internal prosthetic right shoulder joint Priority: Primary Status: Acute - Respiratory Orders Smoking Cessation: Smoking cessation has been advised. For more information, call the [place] Tobacco Quit Line at 9-696-IORW-NOW. - Ancillary Orders May use pressure relief devices daily prn, May go on IVAN w/family/respon republican w/meds at nurse discretion PRN, May consult with Dentist, Paper Cup Machine Tender, Dairy Machine Operator Farmworker PRN - Mobility Orders Chair, Ambulate (Weight bearing as tolerated to the right LOWER extremity; NON weightbearing to the right UPPER extremity.) - Rehabiliation Orders Rehab Potential: Fair Rehab Orders: Evaluation for Physical Therapy, Evaluation for Occupational Therapy Other: NO SHOULDER OR ELBOW MOTION NONWEIGHTBEARING TO THE Right upper extremity REMAIN IN BRACE AT ALL TIMES. REMOVE FOR HYGIENE ONLY - NO SHOULDER OR ELBOW MOTION Weightbearing as tolerated TO THE right lower extremity FOLLOW HIP PRECAUTIONS FOR THE RIGHT HIP X 6 WEEKS POSTOPERATIVELY HIP ABDUCTION WEDGE X 6 WEEKS POSTOPERATIVELY APPLY KNEE IMMOBILIZER AT BEDTIME OR WHEN LAYING IN BED - Treatments Skin tear care topically daily PRN per policy List/Other: Right shoulder: Opsite placed. Keep dressing intact until first follow up appointment. If greater than 50% saturated, notify office, remove dressing and place appropriate dressing back in place. Leave Zipline/[place] intact. Opsite dressing is water resistant, not water-proof. OK to shower, but do not get dressing wet. Right hip: MARGARITA drain removed postoperatively. Pressure dressings applied. Change pressure dressing with STERILE 4x4 gauze shingled and 2 ABD pads to the incision and cover with Medipore tape. CHANGE DAILY AFTER CLEANSING GENTLY WITH SOAP AND WATER AND PAT DRY. IF INCISION AREA OR DRESSING BECOMES SOILED OR WET IT MUST BE CHANGED IMMEDIATELY. Right elbow: Change DAILY. Cleanse with soap and water and pat dry. Apply nonadherent pad/dressing and cover with nonocclusive dressing such as Medipore tape. - Diet Orders Regular CERTIFICATION: I certify that the transfer of the above named patient to an Extended Care Facility is necessary for the continuing treatment of the diagnosis listed. The above information is true and accurate reflection of patient's current condition. Confidential - Redisclosure prohibited without a patient's written consent.
[2018-11-13 15:38] LABS: VBG HCO3 17 mEq/L (21-27); VBG PCO2 33 mmHg (41-51); VBG PH 7.33 pH Units (7.32-7.42); VBG PO2 194 mmHg (25-50)
--- NOTE | 2018-11-13 16:33 | Event Note ---
Date of Encounter: 11/13/18 Time of Encounter: 08:30 POD#5 s/p Right hip hemiarthroplasty, revision humeral component right total shoulder replacement reverse with fracture fixation [ Displaced right femoral neck fracture; Displaced comminuted periprosthetic right proximal humerus fracture] 11/08/18 Dr. Stock Patient seen at bedside. Sitting in bed O2 via NC. Patient seen concurrently with Dr. Stephenson. A&Ox3. Dressings and incisions intact. Minimal drainage noted to the hip dressing.. Patient had MARGARITA drain removed 11/11. Dressing to Right shoulder c/d/i. No calf tenderness, erythema, or warmth. Sensation intact to RUE. Cap refill <2sec and skin warm. Wrist motion full. Hospice Executive Director strength intact. Neurovascularly intact to all extremities. Labwork, vitals, and medications reviewed. Pain control: Adequate Participating in therapy. All questions and concerns addressed. Educated on use of incentive spirometer, ambulation, and hydration. Patient educated on post-operative restrictions and care. Addressed: Dressings to right hip changed daily. Continue to monitor drainage closely. Patient stating she misses her and is sad she is not able to see him at present. She is asking when she can be discharged to rehab. Dr. Stephenson states we are awaiting insurance authorization. NO SHOULDER OR ELBOW MOTION NONWEIGHTBEARING TO THE RUE REMAIN IN BRACE AT ALL TIMES. REMOVE FOR HYGIENE ONLY - NO SHOULDER OR ELBOW MOTION Weightbearing as tolerated TO THE right hip FOLLOW HIP PRECAUTIONS FOR THE RIGHT HIP X 6 WEEKS POSTOPERATIVELY HIP ABDUCTION WEDGE X 6 WEEKS POSTOPERATIVELY Patient course and disposition discussed with Dr. Stock D/C plan: Awaiting acceptance/auth for rehab
[2018-11-13] MEDS: Acetaminophen 325 MG TABLET PO PRN (17:40)
--- NOTE | 2018-11-13 17:42 | Physician Discharge Referral ---
ExtendedCare Referral Info Transfer To: inpatient swing bed - Diagnosis (1) Unspecified rotator cuff tear or rupture of right shoulder, not specified as traumatic Status: Acute (2) Closed right hip fracture Status: Acute (3) Anxiety and depression Status: Chronic (4) Alcohol abuse Status: Chronic (5) COPD (chronic obstructive pulmonary disease) Status: Suspected (6) Anemia Status: Acute - Transfer Medications Home Medications: Albuterol Sulfate [Proventil Inhaler] 2 puff IH Q4HR PRN 04/23/18 [History] Paroxetine [Paxil] 30 mg PO QAM 04/23/18 [History] Acetaminophen [Tylenol] 325 - 650 mg PO Q4H PRN 11/09/18 [History] Albuterol Sulfate [Ventolin Hfa] 1 puff IH Q4H PRN 11/09/18 [History] Levothyroxine Sodium [Synthroid] 137 mcg PO QAM 11/09/18 [History] Ondansetron HCl [Zofran] 4 mg PO Q8H PRN 11/09/18 [History] traZODone [TraZODone] 12.5 - 25 mg PO HS PRN 11/09/18 [History] Docusate [Colace] 100 mg PO BID capsule 11/12/18 [Rx] Ferrous Sulfate 325 mg PO BIDWM tablet 11/12/18 [Rx] Allergies/Adverse Reactions: Allergy/AdvReac Type Severity Reaction Status Date / Time No Known Allergies Allergy Verified 04/23/18 08:52 - Respiratory Orders Smoking Cessation: Smoking cessation has been advised. For more information, call the [place] Tobacco Quit Line at 1-549-DYPU-NOW. CERTIFICATION: I certify that the transfer of the above named patient to an Extended Care Facility is necessary for the continuing treatment of the diagnosis listed. The above information is true and accurate reflection of patient's current conditio n. Confidential - Redisclosure prohibited without a patient's written consent.
[2018-11-13] MEDS: Melatonin 3 MG TABLET PO PRN (22:21)
[2018-11-14] MEDS: Ipratropium/Albuterol Neb 3 ML IH SCH ×4 (04:10→22:22)
[2018-11-14 04:17] LABS: Hematocrit 24.7 % (35.3-44.9); Hemoglobin 8.2 g/dL (11.5-15.4); Mean Corpuscular HGB Conc 33.2 g/dL (31.6-35.5); Mean Corpuscular Hemoglobin 32.4 pg (28.0-33.3); Mean Corpuscular Volume 97.6 fL (83.0-100.0); Mean Platelet Volume 9.7 fL (9.4-12.4); Platelet Count 229 K/mcL (140-400); Red Blood Count 2.53 M/mcL (3.82-4.97); Red Cell Distribution Width 13.3 % (11.5-14.5)
[2018-11-14 04:37] LABS: BUN/Creatinine Ratio 14 (6-26); Blood Urea Nitrogen 9 mg/dL (8-23); Calcium 8.1 mg/dL (8.6-10.3); Carbon Dioxide 25 mEq/L (23-29); Chloride 100 mEq/L (98-107); Glucose 104 mg/dL (70-105); Osmolality,Calculated 271 (280-300); Potassium 3.8 mEq/L (3.5-5.1); Sodium 131 mEq/L (136-145); eGFR For African Americans > 60 (> 60); eGFR For Non-African Americans > 60 (> 60)
--- NOTE | 2018-11-14 08:39 | Orthopedics Progress Note ---
Date of Encounter: 11/14/18 Time of Encounter: 08:39 Subjective Interval history: Patient was seen this morning doing well without complaints. Afebrile vital signs stable. Operative extremities: Neurovascularly intact Dressing clean dry and intact shoulder,and hip Calves nontender Assessment and plan: Continue with postoperative care Awaiting placement Objective Vital signs: Vital Signs Temp Pulse Resp BP Pulse Ox 11/14/18 06:37 98.3 F 103 18 111/70 94 11/14/18 04:10 16 93 11/14/18 03:57 98.6 F 86 16 119/79 95 11/13/18 22:40 16 98 11/13/18 22:09 98.1 F 85 15 125/72 92 11/13/18 20:07 98.5 F 97 15 98/64 95 11/13/18 15:51 18 995 11/13/18 14:50 97.2 F L 66 18 100/65 97 11/13/18 11:46 98.9 F 83 16 107/54 93 11/13/18 10:54 18 97 Intake and Output 11/13/18 11/14/18 11/14/18 23:59 07:59 15:59 Intake Total 480 / 960 Output Total 300 / 300 Balance 480 / 960 -300 / -300 Intake: Oral 480 / 960 Output: Urine 300 / 300 Other: Meal Dinner Percent of Meal Consumed 100% Stool Size Small Stool Consistency formed # Urine Diapers 1 1 # Bowel Movements 1 Weight 83.5 kg Patient Weight 11/14/18 23:59 Weight 83.5 kg - Labs CBC & BMP: 11/14/18 03:21 11/14/18 03:21 Labs: Abnormal lab results WBC 11.3 K/mcL (4.3-11.1) H 11/10/18 05:46 RBC 2.53 M/mcL (3.82-4.97) L 11/14/18 03:21 Hgb 8.2 g/dL (11.5-15.4) L 11/14/18 03:21 Hct 24.7 % (35.3-44.9) L 11/14/18 03:21 Plt Count 97 K/mcL (140-400) L 11/09/18 04:36 Neutrophils # 9.1 K/mcL (1.6-8.9) H 11/10/18 05:46 Lymphocytes # 0.3 K/mcL (0.6-4.6) L 11/08/18 22:39 Immature Plt Fraction 7.2 % (1.1-6.1) H 11/09/18 04:36 ABG pH 7.23 pH Units (7.32-7.45) L 11/08/18 20:59 ABG pO2 64 mmHg (85-104) L 11/08/18 20:59 ABG HCO3 18 mEq/L (21-27) L 11/08/18 20:59 ABG Total CO2 19 mEq/L (20-26) L 11/08/18 20:59 ABG O2 Saturation 88 % (95-98) L 11/08/18 20:59 ABG Base Excess -9 mEq/L (-2 to 3) L 11/08/18 20:59 VBG pH 7.31 pH Units (7.32-7.42) L 11/09/18 17:57 VBG pCO2 32 mmHg (41-51) L 11/10/18 05:59 VBG pO2 176 mmHg (25-50) H 11/10/18 05:59 VBG HCO3 18 mEq/L (21-27) L 11/09/18 17:57 Sodium 131 mEq/L (136-145) L 11/14/18 03:21 Potassium 3.4 mEq/L (3.5-5.1) L 11/13/18 06:06 Chloride 108 mEq/L (98-107) H 11/09/18 04:35 Carbon Dioxide 18 mEq/L (23-29) L 11/09/18 04:35 Est GFR ( Amer) 59 (> 60) L 11/09/18 04:35 Est GFR (Non-Af Amer) 49 (> 60) L 11/09/18 04:35 Glucose 124 mg/dL (70-105) H 11/12/18 07:53 POC Glucose 201 mg/dL (70-99) H 11/09/18 03:54 Serum Osmolality 273 mOsm/kg (280-300) L 11/08/18 09:58 Calculated Osmolality 271 (280-300) L 11/14/18 03:21 Calcium 8.1 mg/dL (8.6-10.3) L 11/14/18 03:21 Urine Opiates Screen Positive ng/mL (Thajbl=553) H 11/11/18 13:28 U Benzodiazepines Scrn Positive ng/mL ([place]=287) H 11/11/18 13:28 Consult Discharge Plan - Plan Additional Instructions: Please continue to follow orthopedic recommendations. Please continue home medications. Please take pain medications as directed. You may take 325 mg of aspirin twice daily for 10 days for anticoagulation. Follow-up with Dr. Stock as scheduled. Please return to the ED if you experience fevers, chills, chest pain, shortness of breath, or any other concerning symptoms. Referrals: Mani Stock MD [Partnered Physician] - (post-op follow up appt needed ) Carlos Grace MD [Primary Care Provider] - Prescriptions: Aspirin 325 mg PO BID 8 Days #16 tablet
[2018-11-14] MEDS: Multivit/Ca/Min/Fe/FA 1 TAB TABLET PO SCH (10:17)
[2018-11-14] MEDS: Aspirin 325 MG TABLET PO SCH ×2 (10:17→20:17)
[2018-11-14] MEDS: Ascorbic Acid 500 MG TABLET PO SCH ×2 (10:17→18:42)
[2018-11-14] MEDS: Budesonide/Formoterol 80/4.5 1 PUFF INH IH SCH ×2 (10:32→22:22)
--- NOTE | 2018-11-14 17:23 | Event Note ---
Date of Encounter: 11/14/18 Time of Encounter: 12:30 POD#6 s/p Right hip hemiarthroplasty, revision humeral component right total shoulder replacement reverse with fracture fixation [ Displaced right femoral neck fracture; Displaced comminuted periprosthetic right proximal humerus fracture] 11/08/18 Dr. Stock Patient seen at bedside. Sitting in chair O2 via NC. A&Ox3. Dressings and incisions intact. 75% yellow-green clear serous drainage noted to the hip dressing. Removed revealing appropriately healing incision with no active drainage. Patient had MARGARITA drain removed 11/11. Dressing to Right shoulder c/d/i. No calf tenderness, erythema, or warmth. Sensation intact to RUE. Cap refill <2sec and skin warm. Wrist motion full. Abrasives Sales Representative strength intact. Neurovascularly intact to all extremities. Labwork, vitals, and medications reviewed. Pain control: Adequate Participating in therapy. All questions and concerns addressed. Educated on use of incentive spirometer, ambulation, and hydration. Patient educated on post-operative restrictions and care. Addressed: Dressings to right hip changed daily. Continue to monitor drainage closely. Patient stating she misses her and is sad she is not able to see him at present. She is asking when she can be discharged to rehab. Per report we are awaiting insurance authorization. NO SHOULDER OR ELBOW MOTION NONWEIGHTBEARING TO THE RUE REMAIN IN BRACE AT ALL TIMES. REMOVE FOR HYGIENE ONLY - NO SHOULDER OR ELBOW MOTION Weightbearing as tolerated TO THE right hip FOLLOW HIP PRECAUTIONS FOR THE RIGHT HIP X 6 WEEKS POSTOPERATIVELY HIP ABDUCTION WEDGE X 6 WEEKS POSTOPERATIVELY APPLY KNEE IMMOBILIZER AT BEDTIME AND WHILE LAYING IN BED. Dressing change to increase to three times per day to right hip with ABD and Medipore tape. Monitor closely for change in appearance, volume, or smell of drainage and notify [facility] immediately. Patient course and disposition discussed with Dr. Stock D/C plan: Awaiting acceptance/auth for rehab
--- NOTE | 2018-11-14 19:27 | Internal Med Progress Note ---
Hospitalist Progress Note - Encounter Date of Encounter: 11/14/18 Time of Encounter: 10:00 - Subjective Interval History: Ms Hernandez is currently admitted following a fall and R humeral fracture. She remains moderate to high risk. Ms Hernandez is feeling OK. No fever or chills. Pain OK today. Awaiting insurance approval for rehab. No GI issues. - Exam Vitals: Temp Pulse Resp BP Pulse Ox 97.9 F 90 16 112/67 95 11/14/18 18:36 11/14/18 18:36 11/14/18 18:36 11/14/18 18:36 11/14/18 18:36 Exam: Constitutional: alert, oriented, well nourished, well-developed Head: normocephalic, atraumatic Heart: normal, regular rate and rhythm, no murmurs, Lungs: clear to auscultation, no wheezes, rales, rhonchi Abdomen: soft, nontender, nondistended, no masses palpable, bowel sounds present and normal, Extremities: no clubbing, cyanosis, bilateral LE edema (no pitting), Skin: dry, intact, incision sites are clean, dry, intact, Psych: alert, oriented, cooperative with exam, EENT: Mucus membranes dry Neck: Supple Neuro: Nonfocal - Assessment and Plan (1) Anxiety and depression Current Visit: Yes Status: Chronic (2) Right humeral fracture Current Visit: Yes Status: Acute (3) Closed right hip fracture Current Visit: Yes Status: Acute (4) DVT prophylaxis Current Visit: Yes Status: Acute (5) Alcohol abuse Current Visit: Yes Status: Chronic (6) COPD (chronic obstructive pulmonary disease) Current Visit: Yes Status: Suspected (7) Anemia Current Visit: Yes Status: Acute - Time Spent with Patient Total time spent is greater than 50% in coordination of care (as documented) at patient's floor/unit and/or counseling patient: Internal Medicine: Result - Labs CBC & Chem 7: 11/14/18 03:21 11/14/18 03:21 Labs: Short CBC 11/14/18 Range/Units 03:21 WBC 9.0 (4.3-11.1) K/mcL Hgb 8.2 L (11.5-15.4) g/dL Hct 24.7 L (35.3-44.9) % Plt Count 229 (140-400) K/mcL BMP 11/14/18 03:21 Sodium 131 L Potassium 3.8 Chloride 100 Carbon Dioxide 25 BUN 9 Creatinine 0.66 Glucose 104 Calcium 8.1 L - ABG Interpretation ABG results: ABG ABG pH 7.23 pH Units (7.32-7.45) L 11/08/18 20:59 ABG pCO2 43 mmHg (35-45) 11/08/18 20:59 ABG pO2 64 mmHg (85-104) L 11/08/18 20:59 ABG O2 Saturation 88 % (95-98) L 11/08/18 20:59 PT/INR, D-dimer PT 11.5 Seconds (9.4-12.1) 11/08/18 02:16 Consult Discharge Plan - Plan Additional Instructions: Please continue to follow orthopedic recommendations. Please continue home medications. Please take pain medications as directed. You may take 325 mg of aspirin twice daily for 10 days for anticoagulation. Follow-up with Dr. Stock as scheduled. Please return to the ED if you experience fevers, chills, chest pain, shortness of breath, or any other concerning symptoms. Referrals: Mani Stock MD [Partnered Physician] - (post-op follow up appt needed ) Carlos Grace MD [Primary Care Provider] - Prescriptions: Aspirin 325 mg PO BID 8 Days #16 tablet (2) Right humeral fracture Qualifiers: Encounter type: subsequent encounter Humerus Location: proximal Fracture type: closed Fracture morphology: other fracture Fracture alignment: displaced Fracture healing: with routine healing Qualified Code(s): S42.291D - Other displaced fracture of upper end of right humerus, subsequent encounter for fracture with routine healing (3) Closed right hip fracture Qualifiers: Encounter type: subsequent encounter Fracture healing: with routine healing Qualified Code(s): S72.001D - Fracture of unspecified part of neck of right femur, subsequent encounter for closed fracture with routine healing (6) COPD (chronic obstructive pulmonary disease) Qualifiers: COPD type: unspecified COPD Qualified Code(s): J44.9 - Chronic obstructive pulmonary disease, unspecified (7) Anemia Qualifiers: Anemia type: other cause Other causes of anemia: acute posthemorrhagic Qu alified Code(s): D62 - Acute posthemorrhagic anemia
[2018-11-14] MEDS: Melatonin 3 MG TABLET PO PRN (20:17)
[2018-11-15 04:04] LABS: Hematocrit 23.2 % (35.3-44.9); Hemoglobin 7.8 g/dL (11.5-15.4); Mean Corpuscular HGB Conc 33.6 g/dL (31.6-35.5); Mean Corpuscular Hemoglobin 32.5 pg (28.0-33.3); Mean Corpuscular Volume 96.7 fL (83.0-100.0); Mean Platelet Volume 9.4 fL (9.4-12.4); Platelet Count 237 K/mcL (140-400); Red Cell Distribution Width 13.4 % (11.5-14.5); White Blood Count 8.4 K/mcL (4.3-11.1)
[2018-11-15] MEDS: Ipratropium/Albuterol Neb 3 ML IH SCH ×4 (04:08→21:58)
[2018-11-15 04:26] LABS: BUN/Creatinine Ratio 13 (6-26); Blood Urea Nitrogen 8 mg/dL (8-23); Calcium 8.1 mg/dL (8.6-10.3); Carbon Dioxide 24 mEq/L (23-29); Chloride 100 mEq/L (98-107); Glucose 104 mg/dL (70-105); Osmolality,Calculated 271 (280-300); Potassium 3.8 mEq/L (3.5-5.1); Sodium 131 mEq/L (136-145); eGFR For African Americans > 60 (> 60); eGFR For Non-African Americans > 60 (> 60)
--- NOTE | 2018-11-15 08:11 | Orthopedics Progress Note ---
Date of Encounter: 11/15/18 Time of Encounter: 08:11 Subjective Interval history: Patient was seen this morning doing well without complaints. Afebrile vital signs stable. Operative extremities: Neurovascularly intact Dressing clean dry and intact shoulder,and hip Calves nontender Assessment and plan: Continue with postoperative care Awaiting placement minimal drainage on right hip dressing, will add kerri dressing, hemoglobin 7.8 transfuse 2 units Objective Vital signs: Vital Signs Temp Pulse Resp BP Pulse Ox 11/15/18 06:36 99.3 F 102 18 122/69 94 11/15/18 04:09 20 96 11/15/18 01:23 97.8 F 85 18 115/85 97 11/14/18 22:23 18 95 11/14/18 18:36 97.9 F 90 16 112/67 95 11/14/18 15:56 16 97 11/14/18 15:35 98.2 F 62 18 109/53 96 11/14/18 10:50 97.7 F 85 18 118/59 99 Intake and Output 11/14/18 11/15/18 11/15/18 23:59 07:59 15:59 Intake Total 240 / 720 Output Total 300 / 300 Balance 240 / 420 -300 / -300 Intake: Oral 240 / 720 Output: Urine 300 / 300 Other: Percent of Meal Consumed 90% # Voids 1 1 Weight 83.4 kg Patient Weight 11/15/18 23:59 Weight 83.4 kg - Labs CBC & BMP: 11/15/18 03:52 11/15/18 03:52 Labs: Abnormal lab results WBC 11.3 K/mcL (4.3-11.1) H 11/10/18 05:46 RBC 2.40 M/mcL (3.82-4.97) L 11/15/18 03:52 Hgb 7.8 g/dL (11.5-15.4) L 11/15/18 03:52 Hct 23.2 % (35.3-44.9) L 11/15/18 03:52 Plt Count 97 K/mcL (140-400) L 11/09/18 04:36 Neutrophils # 9.1 K/mcL (1.6-8.9) H 11/10/18 05:46 Lymphocytes # 0.3 K/mcL (0.6-4.6) L 11/08/18 22:39 Immature Plt Fraction 7.2 % (1.1-6.1) H 11/09/18 04:36 ABG pH 7.23 pH Units (7.32-7.45) L 11/08/18 20:59 ABG pO2 64 mmHg (85-104) L 11/08/18 20:59 ABG HCO3 18 mEq/L (21-27) L 11/08/18 20:59 ABG Total CO2 19 mEq/L (20-26) L 11/08/18 20:59 ABG O2 Saturation 88 % (95-98) L 11/08/18 20:59 ABG Base Excess -9 mEq/L (-2 to 3) L 11/08/18 20:59 VBG pH 7.31 pH Units (7.32-7.42) L 11/09/18 17:57 VBG pCO2 32 mmHg (41-51) L 11/10/18 05:59 VBG pO2 176 mmHg (25-50) H 11/10/18 05:59 VBG HCO3 18 mEq/L (21-27) L 11/09/18 17:57 Sodium 131 mEq/L (136-145) L 11/15/18 03:52 Potassium 3.4 mEq/L (3.5-5.1) L 11/13/18 06:06 Chloride 108 mEq/L (98-107) H 11/09/18 04:35 Carbon Dioxide 18 mEq/L (23-29) L 11/09/18 04:35 Est GFR ( Amer) 59 (> 60) L 11/09/18 04:35 Est GFR (Non-Af Amer) 49 (> 60) L 11/09/18 04:35 Glucose 124 mg/dL (70-105) H 11/12/18 07:53 POC Glucose 201 mg/dL (70-99) H 11/09/18 03:54 Serum Osmolality 273 mOsm/kg (280-300) L 11/08/18 09:58 Calculated Osmolality 271 (280-300) L 11/15/18 03:52 Calcium 8.1 mg/dL (8.6-10.3) L 11/15/18 03:52 Urine Opiates Screen Positive ng/mL (Jyfksw=065) H 11/11/18 13:28 U Benzodiazepines Scrn Positive ng/mL (Wfzgxv=388) H 11/11/18 13:28 Crossmatch See Detail 11/10/18 17:00 Consult Discharge Plan - Plan Additional Instructions: Please continue to follow orthopedic recommendations. Please continue home medications. Please take pain medications as directed. You may take 325 mg of aspirin twice daily for 10 days for anticoagulation. Follow-up with Dr. Stock as scheduled. Please return to the ED if you experience fevers, chills, chest pain, shortness of breath, or any other concerning symptoms. Referrals: Mani Stock MD [Partnered Physician] - (post-op follow up appt needed ) Carlos Grace MD [Primary Care Provider] - Prescriptions: Aspirin 325 mg PO BID 8 Days #16 tablet
[2018-11-15] MEDS ORDERED: 0.9 % Sodium Chloride 250 ML ONE ×2 (08:18→12:45)
[2018-11-15] MEDS: Ascorbic Acid 500 MG TABLET PO SCH ×2 (09:24→16:30)
[2018-11-15] MEDS: Multivit/Ca/Min/Fe/FA 1 TAB TABLET PO SCH (09:24)
[2018-11-15] MEDS: Aspirin 325 MG TABLET PO SCH ×2 (09:24→20:31)
[2018-11-15] MEDS: Budesonide/Formoterol 80/4.5 1 PUFF INH IH SCH ×2 (10:59→21:58)
--- NOTE | 2018-11-15 11:18 | Internal Med Progress Note ---
<Wilberto George S - Last Filed: 11/15/18 15:13> Hospitalist Progress Note - Encounter Date of Encounter: 11/15/18 Time of Encounter: 15:13 - Subjective Interval History: Pt was seen and examined at bedside. Pt is frustrated due to insurance issues, insurance won't approve rehab because she has not done enough rehab in the past. She states she has been doing well with PT so far and is very motivated to continue her rehabilitation. Continues to ambulate to the bathroom with assistance. No acute complaints today. 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 Denies fevers, chills, weakness, headache, CP, SOB, abd pain, N/V/D/C, dysuria, urinary urgency/frequency, hematuria. Pain is well controlled. - Exam Vitals: Temp Pulse Resp BP Pulse Ox 98.5 F 75 16 141/79 98 11/15/18 10:42 11/15/18 10:42 11/15/18 11:00 11/15/18 10:42 11/15/18 11:00 Exam: Constitutional: alert, oriented, in no acute distress, oriented X 3, well nourished, well-developed Head: normocephalic, atraumatic Heart: normal, regular rate and rhythm, no murmurs, S1, S2 normal Lungs: clear to auscultation, no wheezes, rales, rhonchi Abdomen: soft, nontender, nondistended, no masses palpable, bowel sounds present and normal, no hepatosplenomegaly, no guarding or rigidity, no CVA tenderness Extremities: no clubbing, cyanosis, bilateral LE edema (no pitting), pulses +3/4 in all 4 extremities Skin: dry, intact, incision sites are clean, dry, intact, without concerning discharge Psych: alert, oriented, cooperative with exam, good eye contact, cognitive function intact, judgement and insight good, speech clear, thought process logical, goal directed - Assessment and Plan (1) Unspecified rotator cuff tear or rupture of right shoulder, not specified as traumatic Current Visit: Yes Status: Acute Comments: - denies fever, chills, chest pain, SOB, palpitations - pain well controlled - s/p revision right total shoulder replacement humeral side 11/08/[address] Stock - post-op shoulder xray unremarkable - ortho recs: continue with post-op care as directed - continue PT/OT - waiting for insurance approval for rehab center (2) Closed right hip fracture Current Visit: Yes Status: Acute Comments: - denies fever, chills, chest pain, SOB, palpitations - pain well controlled - s/p right hip hemiarthroplasty 11/08/[address] Stock - post-op hip xray unremarkable - ortho recs: continue with post-op care as directed - continue PT/OT - waiting for insurance approval for rehab center - ortho recs: continue with post-op care as directed - continue PT/OT - waiting for insurance approval for rehab center (3) Anxiety and depression Current Visit: Yes Status: Chronic Comments: - denies thought of depression, suicidal ideations - was previouly feeling lonely and mildly depressed but continues to keep her spirits up and stay motivated in her recovery - continue paxil - continue to monitor (4) Alcohol abuse Current Visit: Yes Status: Chronic Comments: - admits to drinking 3 beers tonight with her for a long time. - No evidence of withdrawal during hospitalization - currently on CIWA protocol - will continue to monitor (5) Anemia Current Visit: Yes Status: Acute Comments: - denies melena, hematemesis, signs of active bleeding, lightneadedness, weakness (more than expected) - likely 2/2 recent ortho surgery - hgb 7.8 (prev 8.2) - trasnfuse 2 units of blood - continue ASA 325 mg bid 10d coruse (day 4) - continue to monitor for active bleeding - continue to monitor labs (6) COPD (chronic obstructive pulmonary disease) Current Visit: Yes Status: Suspected Comments: - denies chest pain, SOB, ROBISON, palpitations. No peripheral edema - significant smoking hx, has hx of COPD - continue bronchodilators as needed - Time Spent with Patient Total time spent is greater than 50% in coordination of care (as documented) at patient's floor/unit and/or counseling patient: Internal Medicine: Result - Labs CBC & Chem 7: 11/15/18 03:52 11/15/18 03:52 Labs: Short CBC 11/15/18 Range/Units 03:52 WBC 8.4 (4.3-11.1) K/mcL Hgb 7.8 L (11.5-15.4) g/dL Hct 23.2 L (35.3-44.9) % Plt Count 237 (140-400) K/mcL BMP 11/15/18 03:52 Sodium 131 L Potassium 3.8 Chloride 100 Carbon Dioxide 24 BUN 8 Creatinine 0.64 Glucose 104 Calcium 8.1 L - ABG Interpretation ABG results: ABG ABG pH 7.23 pH Units (7.32-7.45) L 11/08/18 20:59 ABG pCO2 43 mmHg (35-45) 11/08/18 20:59 ABG pO2 64 mmHg (85-104) L 11/08/18 20:59 ABG O2 Saturation 88 % (95-98) L 11/08/18 20:59 PT/INR, D-dimer PT 11.5 Seconds (9.4-12.1) 11/08/18 02:16 Consult Discharge Plan - Plan Additional Instructions: Please continue to follow orthopedic recommendations. Please continue home medications. Please take pain medications as directed. You may take 325 mg of aspirin twice daily for 10 days for anticoagulation. Follow-up with Dr. Stock as scheduled. Please return to the ED if you experience fevers, chills, chest pain, shortness of breath, or any other concerning symptoms. Referrals: Mani Stock MD [Partnered Physician] - (post-op follow up appt needed ) Carlos Grace MD [Primary Care Provider] - Prescriptions: Aspirin 325 mg PO BID 8 Days #16 tablet <AashishJosue Tommie - Last Filed: 11/15/18 16:33> Hospitalist Progress Note - Encounter Date of Encounter: 11/15/18 - Exam Vitals: Temp Pulse Resp BP Pulse Ox 97.7 F 88 20 113/58 95 11/15/18 13:41 11/15/18 13:41 11/15/18 13:41 11/15/18 13:41 11/15/18 13:41 - Assessment and Plan (1) Anxiety and depression Current Visit: Yes Status: Chronic Comments: - denies thought of depression, suicidal ideations - was previouly feeling lonely and mildly depressed but continues to keep her spirits up and stay motivated in her recovery - continue paxil - continue to monitor (2) Right humeral fracture Current Visit: Yes Status: Acute (3) Closed right hip fracture Current Visit: Yes Status: Acute Comments: - denies fever, chills, chest pain, SOB, palpitations - pain well controlled - s/p right hip hemiarthroplasty 11/08/[address] Stock - post-op hip xray unremarkable - ortho recs: continue with post-op care as directed - continue PT/OT - waiting for insurance approval for rehab center - ortho recs: continue with post-op care as directed - continue PT/OT - waiting for insurance approval for rehab center (4) DVT prophylaxis Current Visit: Yes Status: Acute (5) Alcohol abuse Current Visit: Yes Status: Chronic Comments: - admits to drinking 3 beers tonight with her for a long time. - No evidence of withdrawal during hospitalization - currently on CIWA protocol - will continue to monitor (6) COPD (chronic obstructive pulmonary disease) Current Visit: Yes Status: Suspected Comments: - denies chest pain, SOB, ROBISON, palpitations. No peripheral edema - significant smoking hx, has hx of COPD - continue bronchodilators as needed (7) Anemia Current Visit: Yes Status: Acute Comments: - denies melena, hematemesis, signs of active bleeding, lightneadedness, weakness (more than expected) - likely 2/2 recent ortho surgery - hgb 7.8 (prev 8.2) - trasnfuse 2 units of blood - continue ASA 325 mg bid 10d coruse (day 4) - continue to monitor for active bleeding - continue to monitor labs - Time Spent with Patient Total time spent is greater than 50% in coordination of care (as documented) at patient's floor/unit and/or counseling patient: Internal Medicine: Result - Labs CBC & Chem 7: 11/15/18 03:52 11/15/18 03:52 Labs: Short CBC 11/15/18 Range/Units 03:52 WBC 8.4 (4.3-11.1) K/mcL Hgb 7.8 L (11.5-15.4) g/dL Hct 23.2 L (35.3-44.9) % Plt Count 237 (140-400) K/mcL BMP 11/15/18 03:52 Sodium 131 L Potassium 3.8 Chloride 100 Carbon Dioxide 24 BUN 8 Creatinine 0.64 Glucose 104 Calcium 8.1 L - ABG Interpretation ABG results: ABG ABG pH 7.23 pH Units (7.32-7.45) L 11/08/18 20:59 ABG pCO2 43 mmHg (35-45) 11/08/18 20:59 ABG pO2 64 mmHg (85-104) L 11/08/18 20:59 ABG O2 Saturation 88 % (95-98) L 11/08/18 20:59 PT/INR, D-dimer PT 11.5 Seconds (9.4-12.1) 11/08/18 02:16 - Attending Attestation I examined this patient and my medical decision-making was reviewed with the Resident Physician on 11/15/18. I agree with the documented findings, disposition and treatment plan as described except to the extent set forth below. Ms Hernandez is currently admitted for fracture R humerus. She remains moderate to high risk due to potential for worsening clinical status. Ms Hernandez is resting. She is receiving blood transfusion. No fever or chills. No CP or SOB. Exam: Alert. Comfortable. NC. Mucus membranes moist. Neck supple. Not tachycardic. No wheeze. Abd soft. Sling R arm. Moves lower extremities. No rash. Plan: transfuse today. Working on d/c planning. Awaiting insurance approval. <Wilberto George S - Last Filed: 11/15/18 15:13> (2) Closed right hip fracture Qualifiers: Encounter type: subsequent encounter Fracture healing: with routine healing Qualified Code(s): S72.001D - Fracture of unspecified part of neck of right femur, subsequent encounter for closed fracture with routine healing (5) Anemia Qualifiers: Anemia type: other cause Other causes of anemia: acute posthemorrhagic Qualified Code(s): D62 - Acute posthemorrhagic anemia (6) COPD (chronic obstructive pulmonary disease) Qualifiers: COPD type: unspecified COPD Qualified Code(s): J44.9 - Chronic obstructive pulmonary disease, unspecified <Ethan Zendejasmartin Reilly - Last Filed: 11/15/18 16:33> (2) Right humeral fracture Qualifiers: Encounter type: subsequent encounter Humerus Location: proximal Fracture type: closed Fracture morphology: other fracture Fracture alignment: displaced Fracture healing: with routine healing Qualified Code(s): S42.291D - Other displaced fracture of upper end of right humerus, subsequent encounter for fracture with routine healing (3) Closed right hip fracture Qualifiers: Encounter type: subsequent encounter Fracture healing: with routine healing Qualified Code(s): S72.001D - Fracture of unspecified part of neck of right fe mur, subsequent encounter for closed fracture with routine healing (6) COPD (chronic obstructive pulmonary disease) Qualifiers: COPD type: unspecified COPD Qualified Code(s): J44.9 - Chronic obstructive pulmonary disease, unspecified (7) Anemia Qualifiers: Anemia type: other cause Other causes of anemia: acute posthemorrhagic Qualified Code(s): D62 - Acute posthemorrhagic anemia
[2018-11-15] MEDS: Furosemide 20 MG/2 ML VIAL IVP PRN ×2 (12:54→16:30)
[2018-11-15] MEDS: Melatonin 3 MG TABLET PO PRN (20:31)
[2018-11-15 21:08] LABS: Hematocrit 33.5 % (35.3-44.9)
[2018-11-15 21:47] LABS: Hemoglobin 11.3 g/dL (11.5-15.4)
[2018-11-16] MEDS: Ipratropium/Albuterol Neb 3 ML IH SCH ×2 (03:48→10:54)
[2018-11-16 05:49] LABS: Basophils % 0.4 %; Eosinophils # 0.6 K/mcL (0.0-0.6); Hematocrit 30.8 % (35.3-44.9); Hemoglobin 10.4 g/dL (11.5-15.4); Immature Granulocytes % 0.6 % (0-4); Lymphocytes # 1.5 K/mcL (0.6-4.6); Mean Corpuscular HGB Conc 33.8 g/dL (31.6-35.5); Mean Corpuscular Hemoglobin 31.7 pg (28.0-33.3); Mean Corpuscular Volume 93.9 fL (83.0-100.0); Mean Platelet Volume 9.4 fL (9.4-12.4); Monocytes # 0.8 K/mcL (0.0-1.3); Monocytes % 9.6 %; Neutrophils # 5.4 K/mcL (1.6-8.9); Platelet Count 274 K/mcL (140-400); Red Blood Count 3.28 M/mcL (3.82-4.97); Red Cell Distribution Width 14.4 % (11.5-14.5); Segmented Neutrophils % 64.4 %; White Blood Count 8.3 K/mcL (4.3-11.1)
--- NOTE | 2018-11-16 06:45 | Orthopedics Progress Note ---
Date of Encounter: 11/16/18 Time of Encounter: 06:44 Subjective Interval history: Patient was seen this morning doing well without complaints. Afebrile vital signs stable. Operative extremities: Neurovascularly intact Dressing clean dry and intact shoulder,and hip Calves nontender Assessment and plan: Continue with postoperative care Indigo 50%., We will change before discharge hematocrit 30 Objective Vital signs: Vital Signs Temp Pulse Resp BP Pulse Ox 11/16/18 03:51 16 92 11/15/18 23:23 98.7 F 83 17 132/62 96 11/15/18 21:59 18 95 11/15/18 19:10 98.4 F 86 16 128/58 95 11/15/18 16:20 97.4 F L 84 18 124/59 95 11/15/18 13:41 97.7 F 88 20 113/58 95 11/15/18 13:26 97.7 F 75 16 128/83 96 11/15/18 12:25 97.7 F 75 16 134/63 96 11/15/18 11:00 16 98 11/15/18 10:42 98.5 F 75 16 141/79 11/15/18 09:40 97.5 F L 85 14 119/73 98 11/15/18 09:00 98.4 F 84 16 113/72 99 Intake and Output 11/15/18 11/15/18 11/16/18 15:59 23:59 07:59 Intake Total 540 / 840 300 / 840 Balance 540 / 540 300 / 540 Intake: Oral 240 / 240 Blood Product 300 / 600 300 / 600 Rbcs Leuko Poor As-1 Unit 0 / 300 300 / 300 [id number] Rbcs Leuko Poor As-1 Unit 300 / 300 [id number] Other: Meal Breakfast Percent of Meal Consumed 0% # Voids 1 # Urine Diapers 3 Weight 83.2 kg Patient Weight 11/16/18 23:59 Weight 83.2 kg - Labs CBC & BMP: 11/16/18 05:37 11/15/18 03:52 Labs: Abnormal lab results WBC 11.3 K/mcL (4.3-11.1) H 11/10/18 05:46 RBC 3.28 M/mcL (3.82-4.97) L 11/16/18 05:37 Hgb 10.4 g/dL (11.5-15.4) L 11/16/18 05:37 Hct 30.8 % (35.3-44.9) L 11/16/18 05:37 Plt Count 97 K/mcL (140-400) L 11/09/18 04:36 Neutrophils # 9.1 K/mcL (1.6-8.9) H 11/10/18 05:46 Lymphocytes # 0.3 K/mcL (0.6-4.6) L 11/08/18 22:39 Immature Plt Fraction 7.2 % (1.1-6.1) H 11/09/18 04:36 ABG pH 7.23 pH Units (7.32-7.45) L 11/08/18 20:59 ABG pO2 64 mmHg (85-104) L 11/08/18 20:59 ABG HCO3 18 mEq/L (21-27) L 11/08/18 20:59 ABG Total CO2 19 mEq/L (20-26) L 11/08/18 20:59 ABG O2 Saturation 88 % (95-98) L 11/08/18 20:59 ABG Base Excess -9 mEq/L (-2 to 3) L 11/08/18 20:59 VBG pH 7.31 pH Units (7.32-7.42) L 11/09/18 17:57 VBG pCO2 32 mmHg (41-51) L 11/10/18 05:59 VBG pO2 176 mmHg (25-50) H 11/10/18 05:59 VBG HCO3 18 mEq/L (21-27) L 11/09/18 17:57 Sodium 131 mEq/L (136-145) L 11/15/18 03:52 Potassium 3.4 mEq/L (3.5-5.1) L 11/13/18 06:06 Chloride 108 mEq/L (98-107) H 11/09/18 04:35 Carbon Dioxide 18 mEq/L (23-29) L 11/09/18 04:35 Est GFR ( Amer) 59 (> 60) L 11/09/18 04:35 Est GFR (Non-Af Amer) 49 (> 60) L 11/09/18 04:35 Glucose 124 mg/dL (70-105) H 11/12/18 07:53 POC Glucose 201 mg/dL (70-99) H 11/09/18 03:54 Serum Osmolality 273 mOsm/kg (280-300) L 11/08/18 09:58 Calculated Osmolality 271 (280-300) L 11/15/18 03:52 Calcium 8.1 mg/dL (8.6-10.3) L 11/15/18 03:52 Urine Opiates Screen Positive ng/mL (Iwsoes=939) H 11/11/18 13:28 U Benzodiazepines Scrn Positive ng/mL (Sewaaq=939) H 11/11/18 13:28 Crossmatch See Detail 11/10/18 17:00 Consult Discharge Plan - Plan Additional Instructions: Please continue to follow orthopedic recommendations. Please continue home medications. Please take pain medications as directed. You may take 325 mg of aspirin twice daily for 10 days for anticoagulation. Follow-up with Dr. Stock as scheduled. Please return to the ED if you experience fevers, chills, chest pain, shortness of breath, or any other concerning symptoms. Referrals: Mani Stock MD [Partnered Physician] - (post-op follow up appt needed ) Carlos Grace MD [Primary Care Provider] - Prescriptions: Aspirin 325 mg PO BID 8 Days #16 tablet
--- NOTE | 2018-11-16 08:08 | Event Note ---
Date of Encounter: 11/15/18 Time of Encounter: 12:30 POD#7 s/p Right hip hemiarthroplasty, revision humeral component right total shoulder replacement reverse with fracture fixation [ Displaced right femoral neck fracture; Displaced comminuted periprosthetic right proximal humerus fracture] 11/08/18 Dr. Stock Patient seen at bedside. Sitting in chair O2 via NC. A&Ox3. Dressings and incisions intact. JACKIE dressing applied this morning - now appx 30% full with bright yellow drainage. Patient had MARGARITA drain removed 11/11. Dressing to Right shoulder c/d/i. Slingshot brace in place. No calf tenderness, erythema, or warmth. Sensation intact to RUE. Cap refill <2sec and skin warm. Wrist motion full. Barbecue Cook strength intact. Neurovascularly intact to all extremities. Labwork, vitals, and medications reviewed. Pain control: Adequate Participating in therapy. All questions and concerns addressed. Educated on use of incentive spirometer, ambulation, and hydration. Patient educated on post-operative restrictions and care. Addressed: Dressings to right hip changed daily. Continue to monitor drainage closely. Patient states she got to see her and is feeling better. She is asking when she can be discharged to rehab. Per report we are awaiting insurance authorization. NO SHOULDER OR ELBOW MOTION NONWEIGHTBEARING TO THE RUE REMAIN IN BRACE AT ALL TIMES. REMOVE FOR HYGIENE ONLY - NO SHOULDER OR ELBOW MOTION Weightbearing as tolerated TO THE right hip FOLLOW HIP PRECAUTIONS FOR THE RIGHT HIP X 6 WEEKS POSTOPERATIVELY HIP ABDUCTION WEDGE X 6 WEEKS POSTOPERATIVELY APPLY KNEE IMMOBILIZER AT BEDTIME AND WHILE LAYING IN BED. Leave JACKIE dressing in place - Monitor closely for change in appearance, volume, or smell of drainage and notify [facility] immediately. Patient course and disposition discussed with Dr. Stock D/C plan: Awaiting acceptance/auth for rehab
--- NOTE | 2018-11-16 08:52 | Event Note ---
Date of Encounter: 11/16/18 Time of Encounter: 08:15 POD#8 s/p Right hip hemiarthroplasty, revision humeral component right total shoulder replacement reverse with fracture fixation [ Displaced right femoral neck fracture; Displaced comminuted periprosthetic right proximal humerus fracture] 11/08/18 Dr. Stock Patient seen at bedside. Sitting in chair O2 via NC. A&Ox3. Dressings and incisions intact. JACKIE dressing applied 11/15 - now appx 75% full with bright yellow drainage. Patient had MARGARITA drain removed 11/11. Dressing to Right shoulder c/d/i. Slingshot brace in place. No calf tenderness, erythema, or warmth. Sensation intact to RUE. Cap refill <2sec and skin warm. Wrist motion full. Casing Worker strength intact. Neurovascularly intact to all extremities. Labwork, vitals, and medications reviewed. Pain control: Adequate Participating in therapy. Patient now using a hemiwalker. All questions and concerns addressed. Educated on use of incentive spirometer, ambulation, and hydration. Patient educated on post-operative restrictions and care. Addressed: Dressings to right hip changed daily. Continue to monitor drainage closely. Patient states she got to see her and is feeling better. She is asking when she can be discharged to rehab. Per report we are awaiting insurance authorization. NO SHOULDER OR ELBOW MOTION NONWEIGHTBEARING TO THE RUE REMAIN IN BRACE AT ALL TIMES. REMOVE FOR HYGIENE ONLY - NO SHOULDER OR ELBOW MOTION Weightbearing as tolerated TO THE right hip FOLLOW HIP PRECAUTIONS FOR THE RIGHT HIP X 6 WEEKS POSTOPERATIVELY HIP ABDUCTION WEDGE X 6 WEEKS POSTOPERATIVELY APPLY KNEE IMMOBILIZER AT BEDTIME AND WHILE LAYING IN BED. Will change JACKIE today prior to patient leaving. Leave JACKIE dressing in place - Monitor closely for change in appearance, volume, or smell of drainage and notify [facility] immediately. Patient course and disposition discussed with Dr. Stock D/C plan: Awaiting acceptance/auth for rehab
[2018-11-16] MEDS: Aspirin 325 MG TABLET PO SCH ×2 (10:08→23:30)
[2018-11-16] MEDS: Multivit/Ca/Min/Fe/FA 1 TAB TABLET PO SCH (10:08)
[2018-11-16] MEDS: Ascorbic Acid 500 MG TABLET PO SCH ×2 (10:09→17:11)
[2018-11-16] MEDS ORDERED: Ipratropium/Albuterol Neb 3 ML IH PRN (10:54)
[2018-11-16] MEDS: Budesonide/Formoterol 80/4.5 1 PUFF INH IH SCH ×2 (11:12→23:00)
--- NOTE | 2018-11-16 11:26 | Internal Med Progress Note ---
<Wilberto George S - Last Filed: 11/16/18 11:24> Hospitalist Progress Note - Encounter Date of Encounter: 11/16/18 Time of Encounter: 11:31 - Subjective Interval History: Pt was seen and examined at bedside. Was sitting in chair eating breakfast. Doing well with PT so far and is very motivated to continue her rehabilitation. Continues to ambulate to the bathroom with assistance. Was complaining of right hip pain, but did not receive her mornign meds including pain control when she was seen. No other acute complaints today. 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 Denies fevers, chills, weakness, headache, CP, SOB, abd pain, N/V/D/C, dysuria, urinary urgency/frequency, hematuria. - Exam Vitals: Temp Pulse Resp BP Pulse Ox 98.5 F 79 19 118/71 98 11/16/18 08:07 11/16/18 08:07 11/16/18 11:16 11/16/18 08:07 11/16/18 11:16 Exam: Constitutional: alert, oriented, in no acute distress, oriented X 3, well nourished, well-developed Head: normocephalic, atraumatic Heart: normal, regular rate and rhythm, no murmurs, S1, S2 normal Lungs: clear to auscultation, no wheezes, rales, rhonchi Abdomen: soft, nontender, nondistended, no masses palpable, bowel sounds present and normal, no hepatosplenomegaly, no guarding or rigidity, no CVA tenderness Extremities: no clubbing, cyanosis, bilateral LE edema (no pitting), pulses +3/4 in all 4 extremities Skin: dry, intact, incision sites are clean, dry, intact, without concerning discharge Psych: alert, oriented, cooperative with exam, good eye contact, cognitive function intact, judgement and insight good, speech clear, thought process logical, goal directed - Assessment and Plan (1) Unspecified rotator cuff tear or rupture of right shoulder, not specified as traumatic Current Visit: Yes Status: Acute Comments: - denies fever, chills, chest pain, SOB, palpitations - pain well controlled with meds - s/p revision right total shoulder replacement humeral side 11/08/[address] Stock - post-op shoulder xray unremarkable - ortho recs: continue with post-op care as directed, will get another xray before discharge - continue PT/OT - waiting for insurance approval for rehab center (2) Closed right hip fracture Current Visit: Yes Status: Acute Comments: - denies fever, chills, chest pain, SOB, palpitations - pain well controlled with meds - s/p right hip hemiarthroplasty 11/08/[address] Stock - post-op hip xray unremarkable - ortho recs: continue with post-op care as directed. will get another xray before discharge. - continue PT/OT - waiting for insurance approval for rehab center (3) Anxiety and depression Current Visit: Yes Status: Chronic Comments: - denies thought of depression, suicidal ideations - was previouly feeling lonely and mildly depressed but continues to keep her spirits up and stay motivated in her recovery - continue paxil - continue to monitor (4) Alcohol abuse Current Visit: Yes Status: Chronic Comments: - admits to drinking 3 beers tonight with her for a long time. - No evidence of withdrawal during hospitalization - currently on CIWA protocol - will continue to monitor (5) Anemia Current Visit: Yes Status: Acute Comments: - denies melena, hematemesis, signs of active bleeding, lightneadedness, weakness (more than expected) - likely 2/2 recent ortho surgery - got 2uPRBCs yesterday: hgb improved from 7.8 to 11.7. current hgb 10.4. - continue ASA 325 mg bid 10d coruse (day 5) (on 10d course) - continue to monitor for active bleeding - continue to monitor labs (6) COPD (chronic obstructive pulmonary disease) Current Visit: Yes Status: Suspected Comments: - denies chest pain, SOB, ROBISON, palpitations. No peripheral edema - significant smoking hx, has hx of COPD - continue bronchodilators as needed - Time Spent with Patient Total time spent is greater than 50% in coordination of care (as documented) at patient's floor/unit and/or counseling patient: Internal Medicine: Result - Labs CBC & Chem 7: 11/16/18 05:37 11/15/18 03:52 Labs: Short CBC 11/15/18 11/16/18 Range/Units 20:45 05:37 WBC 8.3 (4.3-11.1) K/mcL Hgb 11.3 L D 10.4 L (11.5-15.4) g/dL Hct 33.5 L 30.8 L (35.3-44.9) % Plt Count 274 (140-400) K/mcL Neutrophils # 5.4 (1.6-8.9) K/mcL - ABG Interpretation ABG results: ABG ABG pH 7.23 pH Units (7.32-7.45) L 11/08/18 20:59 ABG pCO2 43 mmHg (35-45) 11/08/18 20:59 ABG pO2 64 mmHg (85-104) L 11/08/18 20:59 ABG O2 Saturation 88 % (95-98) L 11/08/18 20:59 PT/INR, D-dimer PT 11.5 Seconds (9.4-12.1) 11/08/18 02:16 Consult Discharge Plan - Plan Additional Instructions: Please continue to follow orthopedic recommendations. Please continue home medications. Please take pain medications as directed. You may take 325 mg of aspirin twice daily for 10 days for anticoagulation. Follow-up with Dr. Stock as scheduled. Please return to the ED if you experience fevers, chills, chest pain, shortness of breath, or any other concerning symptoms. Referrals: Mani Stock MD [Partnered Physician] - (post-op follow up appt needed ) Carlos Grace MD [Primary Care Provider] - Prescriptions: Aspirin 325 mg PO BID 8 Days #16 tablet <Josue Zendejas - Last Filed: 11/16/18 16:07> Hospitalist Progress Note - Encounter Date of Encounter: 11/16/18 - Exam Vitals: Temp Pulse Resp BP Pulse Ox 98.1 F 78 17 132/78 98 11/16/18 11:56 11/16/18 11:56 11/16/18 11:56 11/16/18 11:56 11/16/18 11:16 - Assessment and Plan (1) Anxiety and depression Current Visit: Yes Status: Chronic Comments: - denies thought of depression, suicidal ideations - was previouly feeling lonely and mildly depressed but continues to keep her spirits up and stay motivated in her recovery - continue paxil - continue to monitor (2) Right humeral fracture Current Visit: Yes Status: Acute (3) Closed right hip fracture Current Visit: Yes Status: Acute Comments: - denies fever, chills, chest pain, SOB, palpitations - pain well controlled with meds - s/p right hip hemiarthroplasty 11/08/[address] Stock - post-op hip xray unremarkable - ortho recs: continue with post-op care as directed. will get another xray before discharge. - continue PT/OT - waiting for insurance approval for rehab center (4) DVT prophylaxis Current Visit: Yes Status: Acute (5) Alcohol abuse Current Visit: Yes Status: Chronic Comments: - admits to drinking 3 beers to night with her for a long time. - No evidence of withdrawal during hospitalization - currently on CIWA protocol - will continue to monitor (6) COPD (chronic obstructive pulmonary disease) Current Visit: Yes Status: Suspected Comments: - denies chest pain, SOB, ROBISON, palpitations. No peripheral edema - significant smoking hx, has hx of COPD - continue bronchodilators as needed (7) Anemia Current Visit: Yes Status: Acute Comments: - denies melena, hematemesis, signs of active bleeding, lightneadedness, weakness (more than expected) - likely 2/2 recent ortho surgery - got 2uPRBCs yesterday: hgb improved from 7.8 to 11.7. current hgb 10.4. - continue ASA 325 mg bid 10d coruse (day 5) (on 10d course) - continue to monitor for active bleeding - continue to monitor labs - Time Spent with Patient Total time spent is greater than 50% in coordination of care (as documented) at patient's floor/unit and/or counseling patient: Internal Medicine: Result - Labs CBC & Chem 7: 11/16/18 05:37 11/15/18 03:52 Labs: Short CBC 11/15/18 11/16/18 Range/Units 20:45 05:37 WBC 8.3 (4.3-11.1) K/mcL Hgb 11.3 L D 10.4 L (11.5-15.4) g/dL Hct 33.5 L 30.8 L (35.3-44.9) % Plt Count 274 (140-400) K/mcL Neutrophils # 5.4 (1.6-8.9) K/mcL - ABG Interpretation ABG results: ABG ABG pH 7.23 pH Units (7.32-7.45) L 11/08/18 20:59 ABG pCO2 43 mmHg (35-45) 11/08/18 20:59 ABG pO2 64 mmHg (85-104) L 11/08/18 20:59 ABG O2 Saturation 88 % (95-98) L 11/08/18 20:59 PT/INR, D-dimer PT 11.5 Seconds (9.4-12.1) 11/08/18 02:16 - Attending Attestation I examined this patient and my medical decision-making was reviewed with the Resident Physician on 11/16/18. I agree with the documented findings, disposition and treatment plan as described except to the extent set forth below. Ms Hernandez is currently admitted for acute fracture R humerus. She remains moderate to high risk due to potential for worsening clinical status. Ms Hernandez is doing OK. No new issues. No CP or SOB. Awaiting insurance approval. Exam: Alert. Comfortable. NC. EOMI. Mucus membranes dry. Heart not tachy. No wheeze. Abd soft. Sling R arm. No edema No rash. Plan: Continue therapy. D/C planning. <Wilberto George - Last Filed: 11/16/18 11:24> (2) Closed right hip fracture Qualifiers: Encounter type: subsequent encounter Fracture healing: with routine healing Qualified Code(s): S72.001D - Fracture of unspecified part of neck of right femur, subsequent encounter for closed fracture with routine healing (5) Anemia Qualifiers: Anemia type: other cause Other causes of anemia: acute posthemorrhagic Qualified Code(s): D62 - Acute posthemorrhagic anemia (6) COPD (chronic obstructive pulmonary disease) Qualifiers: COPD type: unspecified COPD Qualified Code(s): J44.9 - Chronic obstructive pulmonary disease, unspecified <Josue Zendejas - Last Filed: 11/16/18 16:07> (2) Right humeral fracture Qualifiers: Encounter type: subsequent encounter Humerus Location: proximal Fracture type: closed Fracture morphology: other fracture Fracture alignment: displaced Fracture healing: with routine healing Qualified Code(s): S42.291D - Other displaced fracture of upper end of right humerus, subsequent encounter for fracture with routine healing (3) Closed right hip fracture Qualifiers: Encounter type: subsequent encounter Fracture healing: with routine healing Qualified Code(s): S72.001D - Fracture of unspecified part of neck of right femur, subsequent encounter for closed fracture with routine healing (6) COPD (chronic obstructive pulmonary disease) Qualifiers: COPD type: unspecified COPD Qualified Code(s): J44.9 - Chronic obstructive pulmonary disease, unspecified (7) Anemia Qualifiers: Anemia type: other cause Other causes of anemia: acute posthemorrhagic Qualified Code(s): D62 - Acute posthemorrhagic anemia
[2018-11-16] MEDS: Acetaminophen 325 MG TABLET PO PRN (12:26)
[2018-11-16] MEDS: Melatonin 3 MG TABLET PO PRN (23:33)
[2018-11-17 02:31] LABS: Basophils % 0.4 %; Eosinophils # 0.8 K/mcL (0.0-0.6); Eosinophils % 8.2 %; Hematocrit 30.9 % (35.3-44.9); Hemoglobin 10.3 g/dL (11.5-15.4); Immature Granulocytes % 0.6 % (0-4); Lymphocytes # 1.6 K/mcL (0.6-4.6); Mean Corpuscular HGB Conc 33.3 g/dL (31.6-35.5); Mean Corpuscular Hemoglobin 31.7 pg (28.0-33.3); Mean Corpuscular Volume 95.1 fL (83.0-100.0); Mean Platelet Volume 9.6 fL (9.4-12.4); Monocytes % 9.9 %; Neutrophils # 6.1 K/mcL (1.6-8.9); Platelet Count 303 K/mcL (140-400); Red Blood Count 3.25 M/mcL (3.82-4.97); Red Cell Distribution Width 14.2 % (11.5-14.5); Segmented Neutrophils % 63.9 %; White Blood Count 9.6 K/mcL (4.3-11.1)
[2018-11-17] MEDS: Aspirin 325 MG TABLET PO SCH ×2 (08:55→21:18)
[2018-11-17] MEDS: Ascorbic Acid 500 MG TABLET PO SCH ×2 (08:55→16:57)
[2018-11-17] MEDS: Multivit/Ca/Min/Fe/FA 1 TAB TABLET PO SCH (08:55)
[2018-11-17] MEDS: Budesonide/Formoterol 80/4.5 1 PUFF INH IH SCH ×2 (10:03→21:22)
--- NOTE | 2018-11-17 14:04 | Internal Med Progress Note ---
<Wilberto George S - Last Filed: 11/17/18 14:01> Hospitalist Progress Note - Encounter Date of Encounter: 11/17/18 Time of Encounter: 14:06 - Subjective Interval History: Pt was seen and examined at bedside. Feels a little bit frustrated due to a bad encounter with a email marketing processor last night. No other acute complaints. Realizes the importance of cooperating with physical therapy as there evaluation will help her move on to a rehabilitation center. Remains motivated to continue her rehabilitation. Continues to ambulate to the bathroom with assistance. 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 Denies fevers, chills, weakness, headache, CP, SOB, abd pain, N/V/D/C, dysuria, urinary urgency/frequency, hematuria. Pain well managed with meds. - Exam Vitals: Temp Pulse Resp BP Pulse Ox 97.7 F 80 15 114/55 95 11/17/18 10:51 11/17/18 10:51 11/17/18 10:51 11/17/18 10:51 11/17/18 10:51 Exam: Constitutional: alert, oriented, in no acute distress, oriented X 3, well nourished, well-developed Head: normocephalic, atraumatic Heart: normal, regular rate and rhythm, no murmurs, S1, S2 normal Lungs: clear to auscultation, no wheezes, rales, rhonchi Abdomen: soft, nontender, nondistended, no masses palpable, bowel sounds present and normal, no hepatosplenomegaly, no guarding or rigidity, no CVA tenderness Extremities: no clubbing, cyanosis, bilateral LE edema (no pitting), pulses +3/4 in all 4 extremities Skin: dry, intact, incision sites are clean, dry, intact, without concerning discharge Psych: alert, oriented, cooperative with exam, good eye contact, cognitive function intact, judgement and insight good, speech clear, thought process logical, goal directed - Assessment and Plan (1) Unspecified rotator cuff tear or rupture of right shoulder, not specified as traumatic Current Visit: Yes Status: Acute Comments: - denies fever, chills, chest pain, SOB, palpitations - pain well controlled with meds - s/p revision right total shoulder replacement humeral side 11/08/[address] Stock - post-op shoulder xray unremarkable - ortho recs: continue with post-op care as directed, will get another xray before discharge - continue PT/OT - insurance approval for rehab center pending evaluation for physical therapy. we will possibly be discharged Monday (2) Closed right hip fracture Current Visit: Yes Status: Acute Comments: - denies fever, chills, chest pain, SOB, palpitations - pain well controlled with meds - s/p right hip hemiarthroplasty 11/08/[address] Stock - post-op hip xray unremarkable - ortho recs: continue with post-op care as directed. will get another xray before discharge. - continue PT/OT - insurance approval for rehab center pending evaluation for physical therapy. we will possibly be discharged Monday (3) Anxiety and depression Current Visit: Yes Status: Chronic Comments: - denies thought of depression, suicidal ideations - was previouly feeling lonely and mildly depressed but continues to keep her spirits up and stay motivated in her recovery - continue paxil - continue to monitor (4) Alcohol abuse Current Visit: Yes Status: Chronic Comments: - admits to drinking 3 beers tonight with her for a long time. - No evidence of withdrawal during hospitalization - currently on CIWA protocol - will continue to monitor (5) Anemia Current Visit: Yes Status: Acute Comments: - denies melena, hematemesis, signs of active bleeding, lightneadedness, weakness (more than expected) - likely 2/2 recent ortho surgery - got 2uPRBCs yesterday: hgb improved from 7.8 to 11.7. current hgb 10.4. - continue ASA 325 mg bid 10d coruse (day 6) (on 10d course) - continue to monitor for active bleeding - continue to monitor labs (6) COPD (chronic obstructive pulmonary disease) Current Visit: Yes Status: Suspected Comments: - denies chest pain, SOB, ROBISON, palpitations. No peripheral edema - significant smoking hx, has hx of COPD - continue bronchodilators as needed - Time Spent with Patient Total time spent is greater than 50% in coordination of care (as documented) at patient's floor/unit and/or counseling patient: Internal Medicine: Result - Labs CBC & Chem 7: 11/17/18 01:18 11/15/18 03:52 Labs: Short CBC 11/17/18 Range/Units 01:18 WBC 9.6 (4.3-11.1) K/mcL Hgb 10.3 L (11.5-15.4) g/dL Hct 30.9 L (35.3-44.9) % Plt Count 303 (140-400) K/mcL Neutrophils # 6.1 (1.6-8.9) K/mcL - ABG Interpretation ABG results: ABG ABG pH 7.23 pH Units (7.32-7.45) L 11/08/18 20:59 ABG pCO2 43 mmHg (35-45) 11/08/18 20:59 ABG pO2 64 mmHg (85-104) L 11/08/18 20:59 ABG O2 Saturation 88 % (95-98) L 11/08/18 20:59 PT/INR, D-dimer PT 11.5 Seconds (9.4-12.1) 11/08/18 02:16 Consult Discharge Plan - Plan Additional Instructions: Please continue to follow orthopedic recommendations. Please continue home medications. Please take pain medications as directed. You may take 325 mg of aspirin twice daily for 10 days for anticoagulation. Follow-up with Dr. Stock as scheduled. Please return to the ED if you experience fevers, chills, chest pain, shortness of breath, or any other concerning symptoms. Referrals: Mani Stock MD [Partnered Physician] - (post-op follow up appt needed ) Carlos Grace MD [Primary Care Provider] - Prescriptions: Aspirin 325 mg PO BID 8 Days #16 tablet <Josue Zendejas - Last Filed: 11/17/18 15:35> Hospitalist Progress Note - Encounter Date of Encounter: 11/17/18 - Exam Vitals: Temp Pulse Resp BP Pulse Ox 97.7 F 80 15 114/55 95 11/17/18 10:51 11/17/18 10:51 11/17/18 10:51 11/17/18 10:51 11/17/18 10:51 - Assessment and Plan (1) Anxiety and depression Current Visit: Yes Status: Chronic Comments: - denies thought of depression, suicidal ideations - was previouly feeling lonely and mildly depressed but continues to keep her spirits up and stay motivated in her recovery - continue paxil - continue to monitor (2) Right humeral fracture Current Visit: Yes Status: Acute (3) Closed right hip fracture Current Visit: Yes Status: Acute Comments: - denies fever, chills, chest pain, SOB, palpitations - pain well controlled with meds - s/p right hip hemiarthroplasty 11/08/[address] Stock - post-op hip xray unremarkable - ortho recs: continue with post-op care as directed. will get another xray before discharge. - continue PT/OT - insurance approval for rehab center pending evaluation for physical therapy. we will possibly be discharged Monday (4) DVT prophylaxis Current Visit: Yes Status: Acute (5) Alcohol abuse Current Visit: Yes Status: Chronic Comments: - admits to drinking 3 beers tonight with her for a long time. - No evidence of withdrawal during hospitalization - currently on CIWA protocol - will continue to monitor (6) COPD (chronic obstructive pulmonary disease) Current Visit: Yes Status: Suspected Comments: - denies chest pain, SOB, ROBISON, palpitations. No peripheral edema - significant smoking hx, has hx of COPD - continue bronchodilators as needed (7) Anemia Current Visit: Yes Status: Acute Comments: - denies melena, hematemesis, signs of active bleeding, lightneadedness, weakness (more than expected) - likely 2/2 recent ortho surgery - got 2uPRBCs yesterday: hgb improved from 7.8 to 11.7. current hgb 10.4. - continue ASA 325 mg bid 10d coruse (day 6) (on 10d course) - continue to monitor for active bleeding - continue to monitor labs - Time Spent with Patient Total time spent is greater than 50% in coordination of care (as documented) at patient's floor/unit and/or counseling patient: Internal Medicine: Result - Labs CBC & Chem 7: 11/17/18 01:18 11/15/18 03:52 Labs: Short CBC 11/17/18 Range/Units 01:18 WBC 9.6 (4.3-11.1) K/mcL Hgb 10.3 L (11.5-15.4) g/dL Hct 30.9 L (35.3-44.9) % Plt Count 303 (140-400) K/mcL Neutrophils # 6.1 (1.6-8.9) K/mcL - ABG Interpretation ABG results: ABG ABG pH 7.23 pH Units (7.32-7.45) L 11/08/18 20:59 ABG pCO2 43 mmHg (35-45) 11/08/18 20:59 ABG pO2 64 mmHg (85-104) L 11/08/18 20:59 ABG O2 Saturation 88 % (95-98) L 11/08/18 20:59 PT/INR, D-dimer PT 11.5 Seconds (9.4-12.1) 11/08/18 02:16 - Attending Attestation I examined this patient and my medical decision-making was reviewed with the Resident Physician on 11/17/18. I agree with the documented findings, disposition and treatment plan as described except to the extent set forth below. Ms Gilliam is currently admitted for R humeral fracture. She remains moderate risk at this time. Ms Gilliam is doing OK. No fever or chills. No new medical issues. Exam: Alert. Comfortable. NC. Not tachycardic. No wheeze. Splint intact. No edema. Plan: Continue with therapy. Awaiting insurance approval for SNF. <Wilberto George S - Last Filed: 11/17/18 14:01> (2) Closed right hip fracture Qualifiers: Encounter type: subsequent encounter Fracture healing: with routine healing Qualified Code(s): S72.001D - Fracture of unspecified part of neck of right femur, subsequent encounter for closed fracture with routine healing (5) Anemia Qualifiers: Anemia type: other cause Other causes of anemia: acute posthemorrhagic Qualified Code(s): D62 - Acute posthemorrhagic anemia (6) COPD (chronic obstructive pulmonary disease) Qualifiers: COPD type: unspecified COPD Qualified Code(s): J44.9 - Chronic obstructive pulmonary disease, unspecified <Josue Zendejas - Last Filed: 11/17/18 15:35> (2) Right humeral fracture Qualifiers: Encounter type: subsequent encounter Humerus Location: proximal Fracture type: closed Fracture morphology: other fracture Fracture alignment: displaced Fracture healing: with routine healing Qualified Code(s): S42.291D - Other displaced fracture of upper end of right humerus, subsequent encounter for fracture with routine healing (3) Closed right hip fracture Qualifiers: Encounter type: subsequent encounter Fracture healing: with routine healing Qualified Code(s): S72.001D - Fracture of unspecified part of neck of right femur, subsequent encounter for closed fracture with routine healing (6) COPD (chronic obstructive pulmonary disease) Qualifiers: COPD type: unspecified COPD Qualified Code(s): J44.9 - Chronic obstructive pulmonary disease, unspecified (7) Anemia Qualifiers: Anemia type: other cause Other causes of anemia: acute posthemorrhagic Qualified Code(s): D62 - Acute posthemorrhagic anemia
[2018-11-17] MEDS: Melatonin 3 MG TABLET PO PRN (21:17)
[2018-11-17] MEDS: Acetaminophen 325 MG TABLET PO PRN (21:17)
[2018-11-18 06:46] LABS: Basophils % 0.4 %; Eosinophils # 0.9 K/mcL (0.0-0.6); Eosinophils % 9.3 %; Hematocrit 34.6 % (35.3-44.9); Hemoglobin 11.2 g/dL (11.5-15.4); Immature Granulocytes % 0.5 % (0-4); Lymphocytes # 1.7 K/mcL (0.6-4.6); Lymphocytes % 17.6 %; Mean Corpuscular HGB Conc 32.4 g/dL (31.6-35.5); Mean Corpuscular Hemoglobin 31.7 pg (28.0-33.3); Mean Platelet Volume 9.4 fL (9.4-12.4); Monocytes # 0.6 K/mcL (0.0-1.3); Monocytes % 6.1 %; Neutrophils # 6.4 K/mcL (1.6-8.9); Platelet Count 350 K/mcL (140-400); Red Blood Count 3.53 M/mcL (3.82-4.97); Red Cell Distribution Width 14.5 % (11.5-14.5); Segmented Neutrophils % 66.1 %; White Blood Count 9.6 K/mcL (4.3-11.1)
[2018-11-18] MEDS: Budesonide/Formoterol 80/4.5 1 PUFF INH IH SCH ×2 (07:43→20:46)
[2018-11-18] MEDS: Aspirin 325 MG TABLET PO SCH ×2 (08:36→22:44)
[2018-11-18] MEDS: Ascorbic Acid 500 MG TABLET PO SCH ×2 (08:36→17:38)
[2018-11-18] MEDS: Multivit/Ca/Min/Fe/FA 1 TAB TABLET PO SCH (08:37)
--- NOTE | 2018-11-18 10:03 | Internal Med Progress Note ---
<Josue Zendejas - Last Filed: 11/18/18 17:01> Hospitalist Progress Note - Encounter Date of Encounter: 11/18/18 - Exam Vitals: Temp Pulse Resp BP Pulse Ox 97.9 F 79 16 130/56 95 11/18/18 15:03 11/18/18 15:03 11/18/18 15:03 11/18/18 15:03 11/18/18 15:03 - Assessment and Plan (1) Anxiety and depression Current Visit: Yes Status: Chronic Comments: - denies thought of depression, suicidal ideations - was previouly feeling lonely and mildly depressed but continues to keep her spirits up and stay motivated in her recovery - continue paxil - continue to monitor (2) Right humeral fracture Current Visit: Yes Status: Acute (3) Closed right hip fracture Current Visit: Yes Status: Acute Comments: - denies fever, chills, chest pain, SOB, palpitations - pain well controlled with meds - s/p right hip hemiarthroplasty 11/08/[address] Stock - post-op hip xray unremarkable - ortho recs: continue with post-op care as directed. will get another xray before discharge. - continue PT/OT - insurance approval for rehab center pending evaluation for physical therapy. we will possibly be discharged Monday (4) DVT prophylaxis Current Visit: Yes Status: Acute (5) Alcohol abuse Current Visit: Yes Status: Chronic Comments: - admits to drinking 3 beers tonight with her for a long time. - No evidence of withdrawal during hospitalization - currently on CIWA protocol - will continue to monitor (6) COPD (chronic obstructive pulmonary disease) Current Visit: Yes Status: Suspected Comments: - denies chest pain, SOB, ROBISON, palpitations. No peripheral edema - significant smoking hx, has hx of COPD - continue bronchodilators as needed (7) Anemia Current Visit: Yes Status: Acute Comments: - denies melena, hematemesis, signs of active bleeding, lightneadedness, weakness (more than expected) - likely 2/2 recent ortho surgery - got 2uPRBCs yesterday: hgb improved from 7.8 to 11.7. current hgb 10.4. - continue ASA 325 mg bid 10d coruse (day 7) (on 10d course) - continue to monitor for active bleeding - continue to monitor labs - Time Spent with Patient Total time spent is greater than 50% in coordination of care (as documented) at patient's floor/unit and/or counseling patient: Internal Medicine: Result - Labs CBC & Chem 7: 11/18/18 06:00 11/15/18 03:52 Labs: Short CBC 11/18/18 Range/Units 06:00 WBC 9.6 (4.3-11.1) K/mcL Hgb 11.2 L (11.5-15.4) g/dL Hct 34.6 L (35.3-44.9) % Plt Count 350 (140-400) K/mcL Neutrophils # 6.4 (1.6-8.9) K/mcL - ABG Interpretation ABG results: ABG ABG pH 7.23 pH Units (7.32-7.45) L 11/08/18 20:59 ABG pCO2 43 mmHg (35-45) 11/08/18 20:59 ABG pO2 64 mmHg (85-104) L 11/08/18 20:59 ABG O2 Saturation 88 % (95-98) L 11/08/18 20:59 PT/INR, D-dimer PT 11.5 Seconds (9.4-12.1) 11/08/18 02:16 Consult Discharge Plan - Plan Additional Instructions: Please continue to follow orthopedic recommendations. Please continue home medications. Please take pain medications as directed. You may take 325 mg of aspirin twice daily for 10 days for anticoagulation. Follow-up with Dr. Stock as scheduled. Please return to the ED if you experience fevers, chills, chest pain, shortness of breath, or any other concerning symptoms. Referrals: Mani Stock MD [Partnered Physician] - (post-op follow up appt needed ) Carlos Grace MD [Primary Care Provider] - Prescriptions: Aspirin 325 mg PO BID 8 Days #16 tablet - Attending Attestation I examined this patient and my medical decision-making was reviewed with the [facility]. I agree with the documented findings, disposition and treatment plan as described except to the extent set forth below. Ms Hernandez is currently admitted for fracture R humerus. She remains moderate risk. Ms Hernandez just finished breakfast. She worked with therapy yesterday. No fever or chills. No new issues. Exam: Alert. Comfortable. Mucus membranes dry. Heart not tachy. No wheeze. Abd soft. Plan: continue current management. D/C planning. <Eunice Georgekaylin Goodwin - Last Filed: 11/18/18 18:13> Hospitalist Progress Note - Encounter Date of Encounter: 11/18/18 Time of Encounter: 18:13 - Subjective Interval History: Pt was seen and examined at bedside. Was asking about letter to insurance from Dr. Stock. Was unable to participate fully in physical therapy yesterday due to leg swelling. Understands that leg swelling will decrease with increased ambulation. No other acute complaints. Realizes the importance of cooperating with physical therapy as there evaluation will help her move on to a rehabilitation center. Remains motivated to continue her rehabilitation. Continues to ambulate to the bathroom with assistance. 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 Denies fevers, chills, weakness, headache, CP, SOB, abd pain, N/V/D/C, dysuria, urinary urgency/frequency, hematuria. Pain well managed with meds. - Exam Vitals: Temp Pulse Resp BP Pulse Ox 98.4 F 83 16 168/98 93 11/18/18 08:11 11/18/18 08:11 11/18/18 08:11 11/18/18 08:11 11/18/18 08:11 Exam: Constitutional: alert, oriented, in no acute distress, oriented X 3, well nourished, well-developed Head: normocephalic, atraumatic Heart: normal, regular rate and rhythm, no murmurs, S1, S2 normal Lungs: clear to auscultation, no wheezes, rales, rhonchi Abdomen: soft, nontender, nondistended, no masses palpable, bowel sounds present and normal, no hepatosplenomegaly, no guarding or rigidity, no CVA tenderness Extremities: no clubbing, cyanosis, bilateral LE edema (no pitting), pulses +3/4 in all 4 extremities Skin: dry, intact, incision sites are clean, dry, intact, without concerning discharge Psych: alert, oriented, cooperative with exam, good eye contact, cognitive function intact, judgement and insight good, speech clear, thought process logical, goal directed - Assessment and Plan (1) Unspecified rotator cuff tear or rupture of right shoulder, not specified as traumatic Current Visit: Yes Status: Acute Comments: - denies fever, chills, chest pain, SOB, palpitations - pain well controlled with meds - s/p revision right total shoulder replacement humeral side 11/08/[address] Stock - post-op shoulder xray unremarkable - ortho recs: continue with post-op care as directed, will get another xray before discharge - continue PT/OT - insurance approval for rehab center pending evaluation for physical therapy. we will possibly be discharged Monday (2) Closed right hip fracture Current Visit: Yes Status: Acute Comments: - denies fever, chills, chest pain, SOB, palpitations - pain well controlled with meds - s/p right hip hemiarthroplasty 11/08/[address] Stock - post-op hip xray unremarkable - ortho recs: continue with post-op care as directed. will get another xray before discharge. - continue PT/OT - insurance approval for rehab center pending evaluation for physical therapy. we will possibly be discharged Monday (3) Anxiety and depression Current Visit: Yes Status: Chronic Comments: - denies thought of depression, suicidal ideations - was previouly feeling lonely and mildly depressed but continues to keep her spirits up and stay motivated in her recovery - continue paxil - continue to monitor (4) Alcohol abuse Current Visit: Yes Status: Chronic Comments: - admits to drinking 3 beers tonight with her for a long time. - No evidence of withdrawal during hospitalization - currently on CIWA protocol - will continue to monitor (5) Anemia Current Visit: Yes Status: Acute Comments: - denies melena, hematemesis, signs of active bleeding, lightneadedness, weakness (more than expected) - likely 2/2 recent ortho surgery - got 2uPRBCs yesterday: hgb improved from 7.8 to 11.7. current hgb 10.4. - continue ASA 325 mg bid 10d coruse (day 7) (on 10d course) - continue to monitor for active bleeding - continue to monitor labs (6) COPD (chronic obstructive pulmonary disease) Current Visit: Yes Status: Suspected Comments: - denies chest pain, SOB, ROBISON, palpitations. No peripheral edema - significant smoking hx, has hx of COPD - continue bronchodilators as needed - Time Spent with Patient Total time spent is greater than 50% in coordination of care (as documented) at patient's floor/unit and/or counseling patient: Internal Medicine: Result - Labs CBC & Chem 7: 11/18/18 06:00 11/15/18 03:52 Labs: Short CBC 11/18/18 Range/Units 06:00 WBC 9.6 (4.3-11.1) K/mcL Hgb 11.2 L (11.5-15.4) g/dL Hct 34.6 L (35.3-44.9) % Plt Count 350 (140-400) K/mcL Neutrophils # 6.4 (1.6-8.9) K/mcL - ABG Interpretation ABG results: ABG ABG pH 7.23 pH Units (7.32-7.45) L 11/08/18 20:59 ABG pCO2 43 mmHg (35-45) 11/08/18 20:59 ABG pO2 64 mmHg (85-104) L 11/08/18 20:59 ABG O2 Saturation 88 % (95-98) L 11/08/18 20:59 PT/INR, D-dimer PT 11.5 Seconds (9.4-12.1) 11/08/18 02:16 __ <Josue Zendejas - Last Filed: 11/18/18 17:01> (2) Right humeral fracture Qualifiers: Encounter type: subsequent encounter Humerus Location: proximal Fracture type: closed Fracture morphology: other fracture Fracture alignment: displaced Fracture healing: with routine healing Qualified Code(s): S42.291D - Other displaced fracture of upper end of right humerus, subsequent encounter for fracture with routine healing (3) Closed right hip fracture Qualifiers: Encounter type: subsequent encounter Fracture healing: with routine healing Qualified Code(s): S72.001D - Fracture of unspecified part of neck of right femur, subsequent encounter for closed fracture with routine healing (6) COPD (chronic obstructive pulmonary disease) Qualifiers: COPD type: unspecified COPD Qualified Code(s): J44.9 - Chronic obstructive pulmonary disease, unspecified (7) Anemia Qualifiers: Anemia type: other cause Other causes of anemia: acute posthemorrhagic Qualified Code(s): D62 - Acute posthemorrhagic anemia <Wilberto George S - Last Filed: 11/18/18 18:13> (2) Closed right hip fracture Qualifiers: Encounter type: subsequent encounter Fracture healing: with routine healing Qualified Code(s): S72.001D - Fracture of unspecified part of neck of right femur, subsequent encounter for closed fracture with routine healing (5) Anemia Qualifiers: Anemia type: other cause Other causes of anemia: acute posthemorrhagic Qualified Code(s): D62 - Acute posthemorrhagic anemia (6) COPD (chronic obstructive pulmonary disease) Qualifiers: COPD type: unspecified COPD Qualified Code(s): J44.9 - Chronic obstructive pulmonary disease, unspecified
[2018-11-18] MEDS: Acetaminophen 325 MG TABLET PO PRN (22:42)
[2018-11-18] MEDS: Melatonin 3 MG TABLET PO PRN (22:44)
[2018-11-19 06:31] LABS: Basophils % 0.4 %; Eosinophils # 0.9 K/mcL (0.0-0.6); Eosinophils % 8.8 %; Hematocrit 31.9 % (35.3-44.9); Hemoglobin 10.7 g/dL (11.5-15.4); Immature Granulocytes % 0.4 % (0-4); Lymphocytes # 1.7 K/mcL (0.6-4.6); Lymphocytes % 17.3 %; Mean Corpuscular HGB Conc 33.5 g/dL (31.6-35.5); Mean Corpuscular Hemoglobin 32.8 pg (28.0-33.3); Mean Corpuscular Volume 97.9 fL (83.0-100.0); Mean Platelet Volume 9.3 fL (9.4-12.4); Monocytes # 0.8 K/mcL (0.0-1.3); Monocytes % 8.4 %; Neutrophils # 6.5 K/mcL (1.6-8.9); Platelet Count 308 K/mcL (140-400); Red Blood Count 3.26 M/mcL (3.82-4.97); Red Cell Distribution Width 14.1 % (11.5-14.5); Segmented Neutrophils % 64.7 %
--- NOTE | 2018-11-19 06:47 | Orthopedics Progress Note ---
Date of Encounter: 11/19/18 Time of Encounter: 06:47 Subjective Interval history: Patient was seen this morning doing well without complaints. Afebrile vital signs stable. Operative extremities: Neurovascularly intact Dressing clean dry and intact shoulder,and hip Calves nontender Assessment and plan: Continue with postoperative care Awaiting placement Objective Vital signs: Vital Signs Temp Pulse Resp BP Pulse Ox 11/18/18 22:40 99.6 F 89 14 119/67 94 11/18/18 20:47 15 97 11/18/18 19:10 98.4 F 80 16 121/81 96 11/18/18 15:03 97.9 F 79 16 130/56 95 11/18/18 11:03 97.9 F 82 16 124/74 11/18/18 08:11 98.4 F 83 16 168/98 93 11/18/18 07:43 16 96 Intake and Output 11/18/18 11/18/18 11/19/18 15:59 23:59 07:59 Intake Total 600 / 600 Balance 600 / 600 Intake: Oral 600 / 600 Other: Meal Lunch Percent of Meal Consumed 90% Stool Size Small Stool Consistency formed Stool Color Black # Voids 2 3 1 - Labs CBC & BMP: 11/19/18 04:00 11/15/18 03:52 Labs: Abnormal lab results WBC 11.3 K/mcL (4.3-11.1) H 11/10/18 05:46 RBC 3.26 M/mcL (3.82-4.97) L 11/19/18 04:00 Hgb 10.7 g/dL (11.5-15.4) L 11/19/18 04:00 Hct 31.9 % (35.3-44.9) L 11/19/18 04:00 Plt Count 97 K/mcL (140-400) L 11/09/18 04:36 MPV 9.3 fL (9.4-12.4) L 11/19/18 04:00 Neutrophils # 9.1 K/mcL (1.6-8.9) H 11/10/18 05:46 Lymphocytes # 0.3 K/mcL (0.6-4.6) L 11/08/18 22:39 Eosinophils # 0.9 K/mcL (0.0-0.6) H 11/19/18 04:00 Immature Plt Fraction 7.2 % (1.1-6.1) H 11/09/18 04:36 ABG pH 7.23 pH Units (7.32-7.45) L 11/08/18 20:59 ABG pO2 64 mmHg (85-104) L 11/08/18 20:59 ABG HCO3 18 mEq/L (21-27) L 11/08/18 20:59 ABG Total CO2 19 mEq/L (20-26) L 11/08/18 20:59 ABG O2 Saturation 88 % (95-98) L 11/08/18 20:59 ABG Base Excess -9 mEq/L (-2 to 3) L 11/08/18 20:59 VBG pH 7.31 pH Units (7.32-7.42) L 11/09/18 17:57 VBG pCO2 32 mmHg (41-51) L 11/10/18 05:59 VBG pO2 176 mmHg (25-50) H 11/10/18 05:59 VBG HCO3 18 mEq/L (21-27) L 11/09/18 17:57 Sodium 131 mEq/L (136-145) L 11/15/18 03:52 Potassium 3.4 mEq/L (3.5-5.1) L 11/13/18 06:06 Chloride 108 mEq/L (98-107) H 11/09/18 04:35 Carbon Dioxide 18 mEq/L (23-29) L 11/09/18 04:35 Est GFR ( Amer) 59 (> 60) L 11/09/18 04:35 Est GFR (Non-Af Amer) 49 (> 60) L 11/09/18 04:35 Glucose 124 mg/dL (70-105) H 11/12/18 07:53 POC Glucose 201 mg/dL (70-99) H 11/09/18 03:54 Serum Osmolality 273 mOsm/kg (280-300) L 11/08/18 09:58 Calculated Osmolality 271 (280-300) L 11/15/18 03:52 Calcium 8.1 mg/dL (8.6-10.3) L 11/15/18 03:52 Urine Opiates Screen Positive ng/mL (Cbjduw=510) H 11/11/18 13:28 U Benzodiazepines Scrn Positive ng/mL (Oeirnj=109) H 11/11/18 13:28 Crossmatch See Detail 11/10/18 17:00 Consult Discharge Plan - Plan Additional Instructions: Please continue to follow orthopedic recommendations. Please continue home medications. Please take pain medications as directed. You may take 325 mg of aspirin twice daily for 10 days for anticoagulation. Follow-up with Dr. Stock as scheduled. Please return to the ED if you experience fevers, chills, chest pain, shortness of breath, or any other concerning symptoms. Referrals: Mani Stock MD [Partnered Physician] - (post-op follow up appt needed ) Carlos Grace MD [Primary Care Provider] - Prescriptions: Aspirin 325 mg PO BID 8 Days #16 tablet
[2018-11-19] MEDS: Budesonide/Formoterol 80/4.5 1 PUFF INH IH SCH ×2 (07:53→21:59)
[2018-11-19] MEDS: Multivit/Ca/Min/Fe/FA 1 TAB TABLET PO SCH (08:05)
[2018-11-19] MEDS: Aspirin 325 MG TABLET PO SCH ×2 (08:05→21:22)
[2018-11-19] MEDS: Ascorbic Acid 500 MG TABLET PO SCH ×2 (08:05→17:12)
--- NOTE | 2018-11-19 10:37 | Internal Med Progress Note ---
<AashishJosue Tommie - Last Filed: 11/19/18 14:18> Hospitalist Progress Note - Encounter Date of Encounter: 11/19/18 - Exam Vitals: Temp Pulse Resp BP Pulse Ox 98.1 F 75 16 142/72 96 11/19/18 11:12 11/19/18 11:12 11/19/18 07:53 11/19/18 11:12 11/19/18 11:12 - Assessment and Plan (1) Anxiety and depression Current Visit: Yes Status: Chronic Comments: - denies thought of depression, suicidal ideations - was previouly feeling lonely and mildly depressed but continues to keep her spirits up and stay motivated in her recovery - continue paxil - continue to monitor (2) Right humeral fracture Current Visit: Yes Status: Acute (3) Closed right hip fracture Current Visit: Yes Status: Acute Comments: - denies fever, chills, chest pain, SOB, palpitations - pain well controlled with meds - s/p right hip hemiarthroplasty 11/08/[address] Stock - post-op hip xray unremarkable - ortho recs: continue with post-op care as directed. will get another xray before discharge. - continue PT/OT - insurance approval for rehab center pending evaluation for physical therapy. we will possibly be discharged Monday (4) DVT prophylaxis Current Visit: Yes Status: Acute (5) Alcohol abuse Current Visit: Yes Status: Chronic Comments: - admits to drinking 3 beers tonight with her for a long time. - No evidence of withdrawal during hospitalization - currently on CIWA protocol - will continue to monitor (6) COPD (chronic obstructive pulmonary disease) Current Visit: Yes Status: Suspected Comments: - denies chest pain, SOB, ROBISON, palpitations. No peripheral edema - significant smoking hx, has hx of COPD - continue bronchodilators as needed (7) Anemia Current Visit: Yes Status: Acute Comments: - denies melena, hematemesis, signs of active bleeding, lightneadedness, weakness (more than expected) - likely 2/2 recent ortho surgery - got 2uPRBCs yesterday: hgb improved from 7.8 to 11.7. current hgb 10.4. - continue ASA 325 mg bid 10d coruse (day 7) (on 10d course) - continue to monitor for active bleeding - continue to monitor labs - Time Spent with Patient Total time spent is greater than 50% in coordination of care (as documented) at patient's floor/unit and/or counseling patient: Internal Medicine: Result - Labs CBC & Chem 7: 11/19/18 04:00 11/15/18 03:52 Labs: Short CBC 11/19/18 Range/Units 04:00 WBC 10.0 (4.3-11.1) K/mcL Hgb 10.7 L (11.5-15.4) g/dL Hct 31.9 L (35.3-44.9) % Plt Count 308 (140-400) K/mcL Neutrophils # 6.5 (1.6-8.9) K/mcL - ABG Interpretation ABG results: ABG ABG pH 7.23 pH Units (7.32-7.45) L 11/08/18 20:59 ABG pCO2 43 mmHg (35-45) 11/08/18 20:59 ABG pO2 64 mmHg (85-104) L 11/08/18 20:59 ABG O2 Saturation 88 % (95-98) L 11/08/18 20:59 PT/INR, D-dimer PT 11.5 Seconds (9.4-12.1) 11/08/18 02:16 - Impressions Impressions Hip X-Ray 11/19/18 09:03 IMPRESSION: Unremarkable appearance of the right hip arthroplasty. D/ / Mingo Edwards MD / Mingo Edwards MD Interpreting Provider: Mingo Edwards MD Consult Discharge Plan - Plan Additional Instructions: Please continue to follow orthopedic recommendations. Please continue home medications. Please take pain medications as directed. You may take 325 mg of aspirin twice daily for 10 days for anticoagulation. Follow-up with Dr. Stock as scheduled. Please return to the ED if you experience fevers, chills, chest pain, shortness of breath, or any other concerning symptoms. Referrals: Mani Stock MD [Partnered Physician] - (post-op follow up appt needed ) Carlos Grace MD [Primary Care Provider] - Prescriptions: Aspirin 325 mg PO BID 8 Days #16 tablet - Attending Attestation I examined this patient and my medical decision-making was reviewed with the Resident Physician on 11/19/18. I agree with the documented findings, disposition and treatment plan as described except to the extent set forth below. Ms Hernandez is currently admitted for acute R humeral fracture. She remains moderate risk at this time. Mr Hernandez is up in chair. Her leg is somewhat more swollen today. No fever or chills. Still awaiting insurance approval. Exam: Alert Comfortable. NC. EOMI. Mucus membranes dry. Not tachycardic. No wheeze. RLE edematous. No rash. Plan: Check venous duplex. Await insurance decision <Wilberto George S - Last Filed: 11/19/18 15:47> Hospitalist Progress Note - Encounter Date of Encounter: 11/19/18 Time of Encounter: 10:35 - Subjective Interval History: Pt was seen and examined at bedside. Was very upset because insurance is not approving facility, says that they will approve home health referral. Speci fically upset and says that she just wants to leave the hospital at this point. Was experiencing some increased now pitting RLE edema. Surgery ordered stat hip x-ray which was negative. Patient denies any pain. Remains motivated to continue her rehabilitation. Continues to ambulate to the bathroom with assistance. 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 Denies fevers, chills, weakness, headache, CP, SOB, abd pain, N/V/D/C, dysuria, urinary urgency/frequency, hematuria. Pain well managed with meds. - Exam Vitals: Temp Pulse Resp BP Pulse Ox 99 F 84 16 123/64 96 11/19/18 06:35 11/19/18 06:35 11/19/18 07:53 11/19/18 06:35 11/19/18 08:20 Exam: Constitutional: alert, oriented, in no acute distress, oriented X 3, well nourished, well-developed Head: normocephalic, atraumatic Heart: normal, regular rate and rhythm, no murmurs, S1, S2 normal Lungs: clear to auscultation, no wheezes, rales, rhonchi Abdomen: soft, nontender, nondistended, no masses palpable, bowel sounds present and normal, no hepatosplenomegaly, no guarding or rigidity, no CVA tenderness Extremities: no clubbing, cyanosis, bilateral LE edema, edema and are LE increased (+1 pitting), pulses +3/4 in all 4 extremities Skin: dry, intact, incision sites are clean, dry, intact, without concerning discharge Psych: alert, oriented, cooperative with exam, good eye contact, cognitive function intact, judgement and insight good, speech clear, thought process logical, goal directed - Assessment and Plan (1) Unspecified rotator cuff tear or rupture of right shoulder, not specified as traumatic Current Visit: Yes Status: Acute Assessment and Plan: - denies fever, chills, chest pain, SOB, palpitations - pain well controlled with meds - s/p revision right total shoulder replacement humeral side 11/08/[address] Stock - post-op shoulder xray unremarkable - ortho recs: continue with post-op care as directed, will get another xray before discharge - continue PT/OT - Okay to discharge by our fellow pending insurance approval (2) Closed right hip fracture Current Visit: Yes Status: Acute Assessment and Plan: - denies fever, chills, chest pain, SOB, palpitations - pain well controlled with meds - s/p right hip hemiarthroplasty 11/08/[address] Stock - post-op hip xray unremarkable - ortho recs: continue with post-op care as directed. will get another xray before discharge. - continue PT/OT - Had increased RLE edema with pitting, no calf tenderness - Right hip x-ray negative - RLE Doppler ordered, results pending - Okay to discharge by Ortho pending insurance approval (3) Anxiety and depression Current Visit: Yes Status: Chronic Assessment and Plan: - denies thought of depression, suicidal ideations - was previouly feeling lonely and mildly depressed but continues to keep her spirits up and stay motivated in her recovery. Is currently very upset due to insurance issues. - continue paxil - continue to monitor (4) Alcohol abuse Current Visit: Yes Status: Chronic Assessment and Plan: - admits to drinking 3 beers tonight with her for a long time. - No evidence of withdrawal during hospitalization - currently on CIWA protocol - will continue to monitor (5) Anemia Current Visit: Yes Status: Acute Assessment and Plan: - denies melena, hematemesis, signs of active bleeding, lightneadedness, weakness (more than expected) - likely 2/2 recent ortho surgery - current hgb 10.7 - continue ASA 325 mg bid 10d coruse (day 8) (on 10d course) - continue to monitor for active bleeding - continue to monitor labs (6) COPD (chronic obstructive pulmonary disease) Current Visit: Yes Status: Suspected Assessment and Plan: - denies chest pain, SOB, ROBISON, palpitations. No peripheral edema - significant smoking hx, has hx of COPD - continue bronchodilators as needed - Time Spent with Patient Total time spent is greater than 50% in coordination of care (as documented) at patient's floor/unit and/or counseling patient: Internal Medicine: Result - Labs CBC & Chem 7: 11/19/18 04:00 11/15/18 03:52 Labs: Short CBC 11/19/18 Range/Units 04:00 WBC 10.0 (4.3-11.1) K/mcL Hgb 10.7 L (11.5-15.4) g/dL Hct 31.9 L (35.3-44.9) % Plt Count 308 (140-400) K/mcL Neutrophils # 6.5 (1.6-8.9) K/mcL - ABG Interpretation ABG results: ABG ABG pH 7.23 pH Units (7.32-7.45) L 11/08/18 20:59 ABG pCO2 43 mmHg (35-45) 11/08/18 20:59 ABG pO2 64 mmHg (85-104) L 11/08/18 20:59 ABG O2 Saturation 88 % (95-98) L 11/08/18 20:59 PT/INR, D-dimer PT 11.5 Seconds (9.4-12.1) 11/08/18 02:16 - Impressions Impressions Hip X-Ray 11/19/18 09:03 IMPRESSION: Unremarkable appearance of the right hip arthroplasty. D/ / Mingo Edwards MD / Mingo Edwards MD Interpreting Provider: Mingo Edwards MD <Josue Zendejas - Last Filed: 11/19/18 14:18> (2) Right humeral fracture Qualifiers: Encounter type: subsequent encounter Humerus Location: proximal Fracture type: closed Fracture morphology: other fracture Fracture alignment: displaced Fracture healing: with routine healing Qualified Code(s): S42.291D - Other displaced fracture of upper end of right humerus, subsequent encounter for fr acture with routine healing (3) Closed right hip fracture Qualifiers: Encounter type: subsequent encounter Fracture healing: with routine healing Qualified Code(s): S72.001D - Fracture of unspecified part of neck of right femur, subsequent encounter for closed fracture with routine healing (6) COPD (chronic obstructive pulmonary disease) Qualifiers: COPD type: unspecified COPD Qualified Code(s): J44.9 - Chronic obstructive pulmonary disease, unspecified (7) Anemia Qualifiers: Anemia type: other cause Other causes of anemia: acute posthemorrhagic Qualified Code(s): D62 - Acute posthemorrhagic anemia <ArielWilberto S - Last Filed: 11/19/18 15:47> (2) Closed right hip fracture Qualifiers: Encounter type: subsequent encounter Fracture healing: with routine healing Qualified Code(s): S72.001D - Fracture of unspecified part of neck of right femur, subsequent encounter for closed fracture with routine healing (5) Anemia Qualifiers: Anemia type: other cause Other causes of anemia: acute posthemorrhagic Qualified Code(s): D62 - Acute posthemorrhagic anemia (6) COPD (chronic obstructive pulmonary disease) Qualifiers: COPD type: unspecified COPD Qualified Code(s): J44.9 - Chronic obstructive pulmonary disease, unspecified
--- NOTE | 2018-11-19 11:05 | Event Note ---
Date of Encounter: 11/19/18 Time of Encounter: 09:00 POD#11 s/p Right hip hemiarthroplasty, revision humeral component right total shoulder replacement reverse with fracture fixation [ Displaced right femoral neck fracture; Displaced comminuted periprosthetic right proximal humerus fracture] 11/08/18 Dr. Stock Patient seen at bedside. Sitting in chair O2 via NC. Spouse at bedside. A&Ox3. Dressings and incisions intact. JACKIE dressing applied yesterday per patient - now appx 10% full with bright yellow drainage. Patient had MARGARITA drain removed 11/11. Dressing to Right shoulder c/d/i. Slingshot brace in place. No calf tenderness, erythema, or warmth. Sensation intact to RUE. Cap refill <2sec and skin warm. Wrist motion full. Front End Java Developer strength intact. Neurovascularly intact to all extremities. Labwork, vitals, and medications reviewed. Pain control: Adequate Participating in therapy. Patient now using a hemiwalker. All questions and concerns addressed. Educated on use of incentive spirometer, ambulation, and hydration. Patient educated on post-operative restrictions and care. Addressed: Leave Jackie dressing in place. Do not remove. This dressing will be removed at first postop appointment. If it fills up or battery dies, remove and replace with absorbent dressing and change daily. Continue to monitor drainage closely. NO SHOULDER OR ELBOW MOTION NONWEIGHTBEARING TO THE RUE REMAIN IN BRACE AT ALL TIMES. REMOVE FOR HYGIENE ONLY - NO SHOULDER OR ELBOW MOTION Weightbearing as tolerated TO THE right hip FOLLOW HIP PRECAUTIONS FOR THE RIGHT HIP X 6 WEEKS POSTOPERATIVELY HIP ABDUCTION WEDGE X 6 WEEKS POSTOPERATIVELY APPLY KNEE IMMOBILIZER AT BEDTIME AND WHILE LAYING IN BED. Will change JACKIE today prior to patient leaving. Leave JACKIE dressing in place - Monitor closely for change in appearance, volume, or smell of drainage and notify [facility] immediately. Patient course and disposition discussed with Dr. Stock D/C plan: Awaiting acceptance/auth for rehab Leg is very swollen with patient having increased stiffness and reports that her legs were crossed yesterday during dressing change. Xray hip to eval - hospitalist working to evaluate b/l LE swelling re: Lasix use and would consider doppler as well
[2018-11-19] MEDS: Acetaminophen 325 MG TABLET PO PRN (17:33)
[2018-11-19] MEDS: Melatonin 3 MG TABLET PO PRN (21:28)
[2018-11-20 04:42] LABS: Basophils % 0.4 %; Eosinophils # 0.7 K/mcL (0.0-0.6); Eosinophils % 8.3 %; Hematocrit 30.4 % (35.3-44.9); Immature Granulocytes % 0.4 % (0-4); Lymphocytes # 1.4 K/mcL (0.6-4.6); Lymphocytes % 16.8 %; Mean Corpuscular HGB Conc 32.9 g/dL (31.6-35.5); Mean Corpuscular Hemoglobin 32.5 pg (28.0-33.3); Mean Corpuscular Volume 98.7 fL (83.0-100.0); Mean Platelet Volume 9.2 fL (9.4-12.4); Monocytes # 0.7 K/mcL (0.0-1.3); Monocytes % 8.8 %; Neutrophils # 5.2 K/mcL (1.6-8.9); Platelet Count 294 K/mcL (140-400); Red Blood Count 3.08 M/mcL (3.82-4.97); Red Cell Distribution Width 14.2 % (11.5-14.5); Segmented Neutrophils % 65.3 %
[2018-11-20 04:49] LABS: BUN/Creatinine Ratio 22 (6-26); Blood Urea Nitrogen 13 mg/dL (8-23); Calcium 8.2 mg/dL (8.6-10.3); Carbon Dioxide 25 mEq/L (23-29); Chloride 102 mEq/L (98-107); Glucose 107 mg/dL (70-105); Osmolality,Calculated 277 (280-300); Sodium 133 mEq/L (136-145); eGFR For African Americans > 60 (> 60); eGFR For Non-African Americans > 60 (> 60)
[2018-11-20] MEDS: Acetaminophen 325 MG TABLET PO PRN (05:21)
--- NOTE | 2018-11-20 06:45 | Orthopedics Progress Note ---
Date of Encounter: 11/20/18 Time of Encounter: 06:44 Subjective Interval history: Patient was seen this morning doing well without complaints. Afebrile vital signs stable. Operative extremities: Neurovascularly intact Dressing clean dry and intact shoulder,and hip Calves nontender Assessment and plan: Continue with postoperative care Awaiting placement we will obtain x-rays of right shoulder today Objective Vital signs: Vital Signs Temp Pulse Resp BP Pulse Ox 11/20/18 03:13 98.7 F 88 18 113/69 98 11/19/18 22:19 98.8 F 80 20 101/57 94 11/19/18 21:59 16 95 11/19/18 21:29 95 11/19/18 20:50 98.4 F 75 20 129/64 95 11/19/18 11:12 98.1 F 75 142/72 96 11/19/18 08:20 96 11/19/18 07:53 16 96 Intake and Output 11/19/18 11/19/18 11/20/18 15:59 23:59 07:59 Intake Total 480 / 480 300 / 300 Output Total 500 / 500 0 / 0 Balance -20 / -20 300 / 300 Intake: Oral 480 / 480 300 / 300 Output: Urine 500 / 500 0 / 0 Other: Stool Size Large Stool Consistency soft Stool Color Brown # Voids 1 1 Weight 85.1 kg Patient Weight 11/20/18 23:59 Weight 85.1 kg - Labs CBC & BMP: 11/20/18 04:10 11/20/18 04:10 Labs: Abnormal lab results WBC 11.3 K/mcL (4.3-11.1) H 11/10/18 05:46 RBC 3.08 M/mcL (3.82-4.97) L 11/20/18 04:10 Hgb 10.0 g/dL (11.5-15.4) L 11/20/18 04:10 Hct 30.4 % (35.3-44.9) L 11/20/18 04:10 Plt Count 97 K/mcL (140-400) L 11/09/18 04:36 MPV 9.2 fL (9.4-12.4) L 11/20/18 04:10 Neutrophils # 9.1 K/mcL (1.6-8.9) H 11/10/18 05:46 Lymphocytes # 0.3 K/mcL (0.6-4.6) L 11/08/18 22:39 Eosinophils # 0.7 K/mcL (0.0-0.6) H 11/20/18 04:10 Immature Plt Fraction 7.2 % (1.1-6.1) H 11/09/18 04:36 ABG pH 7.23 pH Units (7.32-7.45) L 11/08/18 20:59 ABG pO2 64 mmHg (85-104) L 11/08/18 20:59 ABG HCO3 18 mEq/L (21-27) L 11/08/18 20:59 ABG Total CO2 19 mEq/L (20-26) L 11/08/18 20:59 ABG O2 Saturation 88 % (95-98) L 11/08/18 20:59 ABG Base Excess -9 mEq/L (-2 to 3) L 11/08/18 20:59 VBG pH 7.31 pH Units (7.32-7.42) L 11/09/18 17:57 VBG pCO2 32 mmHg (41-51) L 11/10/18 05:59 VBG pO2 176 mmHg (25-50) H 11/10/18 05:59 VBG HCO3 18 mEq/L (21-27) L 11/09/18 17:57 Sodium 133 mEq/L (136-145) L 11/20/18 04:10 Potassium 3.4 mEq/L (3.5-5.1) L 11/13/18 06:06 Chloride 108 mEq/L (98-107) H 11/09/18 04:35 Carbon Dioxide 18 mEq/L (23-29) L 11/09/18 04:35 Est GFR ( Amer) 59 (> 60) L 11/09/18 04:35 Est GFR (Non-Af Amer) 49 (> 60) L 11/09/18 04:35 Glucose 107 mg/dL (70-105) H 11/20/18 04:10 POC Glucose 201 mg/dL (70-99) H 11/09/18 03:54 Serum Osmolality 273 mOsm/kg (280-300) L 11/08/18 09:58 Calculated Osmolality 277 (280-300) L 11/20/18 04:10 Calcium 8.2 mg/dL (8.6-10.3) L 11/20/18 04:10 Urine Opiates Screen Positive ng/mL ([id number]) H 11/11/18 13:28 U Benzodiazepines Scrn Positive ng/mL (Zkpmee=386) H 11/11/18 13:28 Crossmatch See Detail 11/10/18 17:00 Consult Discharge Plan - Plan Additional Instructions: Please continue to follow orthopedic recommendations. Please continue home medications. Please take pain medications as directed. You may take 325 mg of aspirin twice daily for 10 days for anticoagulation. Follow-up with Dr. Stock as scheduled. Please return to the ED if you experience fevers, chills, chest pain, shortness of breath, or any other concerning symptoms. Referrals: Mani Stock MD [Partnered Physician] - (post-op follow up appt needed ) Carlos Grace MD [Primary Care Provider] - Prescriptions: Aspirin 325 mg PO BID 8 Days #16 tablet
[2018-11-20] MEDS: Multivit/Ca/Min/Fe/FA 1 TAB TABLET PO SCH (07:25)
[2018-11-20] MEDS: Aspirin 325 MG TABLET PO SCH (07:25)
[2018-11-20] MEDS: Ascorbic Acid 500 MG TABLET PO SCH ×2 (07:25→16:41)
[2018-11-20] MEDS: Budesonide/Formoterol 80/4.5 1 PUFF INH IH SCH (07:52)
--- NOTE | 2018-11-20 08:41 | Internal Med Progress Note ---
<Wilberto George S - Last Filed: 11/20/18 13:03> Hospitalist Progress Note - Encounter Date of Encounter: 11/20/18 Time of Encounter: 08:40 - Subjective Interval History: Pt was seen and examined at bedside. Continues to be frustrated due to insurance complications with placement. RLE edema has improved, but still pending, some tenderness to palpation anteriorly. Remains motivated to continue her rehabilitation. Continues to ambulate to the bathroom with assistance. 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 Denies fevers, chills, weakness, headache, CP, SOB, abd pain, N/V/D/C, dysuria, urinary urgency/frequency, hematuria. Postop pain well managed with meds. - Exam Vitals: Temp Pulse Resp BP Pulse Ox 98.4 F 84 18 134/70 96 11/20/18 08:02 11/20/18 08:02 11/20/18 08:02 11/20/18 08:02 11/20/18 08:02 Exam: Constitutional: alert, oriented, in no acute distress, oriented X 3, well nourished, well-developed Head: normocephalic, atraumatic Heart: normal, regular rate and rhythm, no murmurs, S1, S2 normal Lungs: clear to auscultation, no wheezes, rales, rhonchi Abdomen: soft, nontender, nondistended, no masses palpable, bowel sounds present and normal, no hepatosplenomegaly, no guarding or rigidity, no CVA tenderness Extremities: no clubbing, cyanosis, bilateral LE edema, edema in RLE slightly improved (+1 pitting) nontender at rest, pulses +3/4 in all 4 extremities Skin: dry, intact, incision sites are clean, dry, intact, without concerning discharge Psych: alert, oriented, cooperative with exam, good eye contact, cognitive function intact, judgement and insight good, speech clear, thought process logical, goal directed - Assessment and Plan (1) Unspecified rotator cuff tear or rupture of right shoulder, not specified as traumatic Current Visit: Yes Status: Acute Assessment and Plan: - denies fever, chills, chest pain, SOB, palpitations - pain well controlled with meds - s/p revision right total shoulder replacement humeral side 11/08/[address] Stock - post-op shoulder xray unremarkable - ortho recs: continue with post-op care as directed, will get another xray before discharge - continue PT/OT - Okay to discharge by our fellow pending insurance approval (2) Closed right hip fracture Current Visit: Yes Status: Acute Assessment and Plan: - denies fever, chills, chest pain, SOB, palpitations - pain well controlled with meds - s/p right hip hemiarthroplasty 11/08/[address] Stock - post-op hip xray unremarkable - ortho recs: continue with post-op care as directed. will get another xray before discharge. - continue PT/OT - RLE edema slightly improved, +1 pitting, tenderness to palpation anteriorly, no calf tenderness - RLE Doppler negative for DVT and SVT - Okay to discharge by Ortho pending insurance approval (3) Anxiety and depression Current Visit: Yes Status: Chronic Assessment and Plan: - denies thought of depression, suicidal ideations - was previouly feeling lonely and mildly depressed but continues to keep her spirits up and stay motivated in her recovery. Is currently frustrated due to insurance issues. - continue paxil - continue to monitor (4) Alcohol abuse Current Visit: Yes Status: Chronic Assessment and Plan: - admits to drinking 3 beers tonight with her for a long time. - No evidence of withdrawal during hospitalization - currently on CIWA protocol - will continue to monitor (5) Anemia Current Visit: Yes Status: Acute Assessment and Plan: - denies melena, hematemesis, signs of active bleeding, lightneadedness, weakness (more than expected) - likely 2/2 recent ortho surgery - current hgb 10.0 - continue ASA 325 mg bid 10d coruse (day 9) (on 10d course) - continue to monitor for active bleeding - continue to monitor labs (6) COPD (chronic obstructive pulmonary disease) Current Visit: Yes Status: Suspected Assessment and Plan: - denies chest pain, SOB, ROBISON, palpitations. No peripheral edema - significant smoking hx, has hx of COPD - continue bronchodilators as needed - Time Spent with Patient Total time spent is greater than 50% in coordination of care (as documented) at patient's floor/unit and/or counseling patient: Internal Medicine: Result - Labs CBC & Chem 7: 11/20/18 04:10 11/20/18 04:10 Labs: Short CBC 08/06/19 Range/Units 04:10 WBC 8.0 (4.3-11.1) K/mcL Hgb 10.0 L (11.5-15.4) g/dL Hct 30.4 L (35.3-44.9) % Plt Count 294 (140-400) K/mcL Neutrophils # 5.2 (1.6-8.9) K/mcL BMP 11/20/18 04:10 Sodium 133 L Potassium 4.0 Chloride 102 Carbon Dioxide 25 BUN 13 Creatinine 0.60 Glucose 107 H Calcium 8.2 L - ABG Interpretation ABG results: ABG ABG pH 7.23 pH Units (7.32-7.45) L 11/08/18 20:59 ABG pCO2 43 mmHg (35-45) 11/08/18 20:59 ABG pO2 64 mmHg (85-104) L 11/08/18 20:59 ABG O2 Saturation 88 % (95-98) L 11/08/18 20:59 PT/INR, D-dimer PT 11.5 Seconds (9.4-12.1) 11/08/18 02:16 - Impressions Impressions Hip X-Ray 11/19/18 09:03 IMPRESSION: Unremarkable appearance of the right hip arthroplasty. D/ / Mingo Edwards MD / Mingo Edwards MD Interpreting Provider: Mingo Edwards MD Shoulder X-Ray 11/20/18 06:43 IMPRESSION: 1. Status post reversed total shoulder arthroplasty with no new complications. No obvious interval healing of the proximal humeral fracture. Stable alignment. D/ / 11/20/2018 07:37:35 Paz Becerril MD / Manda Juarez Interpreting Provider: Paz Becerril MD Consult Discharge Plan - Plan Additional Instructions: Please continue to follow orthopedic recommendations. Please continue home medications. Please take pain medications as directed. You may take 325 mg of aspirin twice daily for 10 days for anticoagulation. Follow-up with Dr. Stock as scheduled. Please return to the ED if you experience fevers, chills, chest pain, shortness of breath, or any other concerning symptoms. Referrals: Karen Valdovinos PAC [Physician Mail Order Clerk] - 11/23/18 10:30 am Mani Stock MD [Partnered Physician] - 12/05/18 3:30 pm () Carlos Grace MD [Primary Care Provider] - Prescriptions: Aspirin 325 mg PO BID #3 tablet <Josue Zendejas - Last Filed: 11/20/18 15:26> Hospitalist Progress Note - Encounter Date of Encounter: 11/20/18 - Exam Vitals: Temp Pulse Resp BP Pulse Ox 98.0 F 80 16 132/68 97 11/20/18 10:20 11/20/18 10:20 11/20/18 10:20 11/20/18 10:20 11/20/18 10:20 - Assessment and Plan (1) Anxiety and depression Current Visit: Yes Status: Chronic (2) Right humeral fracture Current Visit: Yes Status: Acute (3) Closed right hip fracture Current Visit: Yes Status: Acute (4) DVT prophylaxis Current Visit: Yes Status: Acute (5) Alcohol abuse Current Visit: Yes Status: Chronic (6) COPD (chronic obstructive pulmonary disease) Current Visit: Yes Status: Suspected (7) Anemia Current Visit: Yes Status: Acute - Time Spent with Patient Total time spent is greater than 50% in coordination of care (as documented) at patient's floor/unit and/or counseling patient: Internal Medicine: Result - Labs CBC & Chem 7: 11/20/18 04:10 11/20/18 04:10 Labs: Short CBC 11/20/18 Range/Units 04:10 WBC 8.0 (4.3-11.1) K/mcL Hgb 10.0 L (11.5-15.4) g/dL Hct 30.4 L (35.3-44.9) % Plt Count 294 (140-400) K/mcL Neutrophils # 5.2 (1.6-8.9) K/mcL BMP 11/20/18 04:10 Sodium 133 L Potassium 4.0 Chloride 102 Carbon Dioxide 25 BUN 13 Creatinine 0.60 Glucose 107 H Calcium 8.2 L - ABG Interpretation ABG results: ABG ABG pH 7.23 pH Units (7.32-7.45) L 11/08/18 20:59 ABG pCO2 43 mmHg (35-45) 11/08/18 20:59 ABG pO2 64 mmHg (85-104) L 11/08/18 20:59 ABG O2 Saturation 88 % (95-98) L 11/08/18 20:59 PT/INR, D-dimer PT 11.5 Seconds (9.4-12.1) 11/08/18 02:16 - Impressions Impressions Shoulder X-Ray 11/20/18 06:43 IMPRESSION: 1. Status post reversed total shoulder arthroplasty with no new complications. No obvious interval healing of the proximal humeral fracture. Stable alignment. D/ / 11/20/2018 07:37:35 Paz Becerril MD / Manda Juarez Interpreting Provider: Paz Becerril MD - Attending Attestation I examined this patient and my medical decision-making was reviewed with the Resident Physician on 11/20/18. I agree with the documented findings, disposition and treatment plan as described except to the extent set forth below. Ms Hernandez is currently hospitalized for fracture R humerus and R hip. She remains moderate risk. Ms Hernandez is doing OK. Still waiting insurance. No fever or chills. Exam: Alert. comfortable. NC. EOMI. Mucus membranes dry. Heart not tachy. No wheeze. Moves all extremities. Plan: D/C to [place] today. <Wilberto George - Last Filed: 11/20/18 13:03> (2) Closed right hip fracture Qualifiers: Encounter type: subsequent encounter Fracture healing: with routine healing Qualified Code(s): S72.001D - Fracture of unspecified part of neck of right femur, subsequent encounter for closed fracture with routine healing (5) Anemia Qualifiers: Anemia type: other cause Other causes of anemia: acute posthemorrhagic Qualified Code(s): D62 - Acute posthemorrhagic anemia (6) COPD (chronic obstructive pulmonary disease) Qualifiers: COPD type: unspecified COPD Qualified Code(s): J44.9 - Chronic obstructive pulmonary disease, unspecified <Josue Zendejas - Last Filed: 11/20/18 15:26> (2) Right humeral fracture Qualifiers: Encounter type: subsequent encounter Humerus Location: proximal Fracture type: closed Fracture morphology: other fracture Fracture alignment: displaced Fracture healing: with routine healing Qualified Code(s): S42.291D - Other displaced fracture of upper end of right humerus, subsequent encounter for fracture with routine healing (3) Closed right hip fracture Qualifiers: Encounter type: subsequent encounter Fracture healing: with routine healing Qualified Code(s): S72.001D - Fracture of unspecified part of neck of right femur, subsequent encounter for closed fracture with routine healing (6) COPD (chronic obstructive pulmonary disease) Qualifiers: COPD type: unspecified COPD Qualified Code(s): J44.9 - Chronic obstructive pulmonary disease, unspecified (7) Anemia Qualifiers: Anemia type: other cause Other causes of anemia: acute posthemorrhagic Qualified Code(s): D62 - Acute posthemorrhagic anemia
[2018-11-20 16:53] VITALS: BP 135/72
== END 2018-11-20 19:17 | disposition other institution (70) | DRG 469 ==
LOC: 3NENU → SUATTDRO 11-08 00:27
PROVIDERS: ADMIT Internal Medicine; ATTEND Internal Medicine

== ENCOUNTER 2018-12-10 19:56 | Observation (INO) ==
[2018-12-10] MEDS ORDERED: *HR* FentaNYL (PF) 100 MCG/2 ML VIAL IVP ONE (20:38)
[2018-12-10] MEDS ORDERED: Morphine Sulfate Oral CONC 10 MG/0.5 ML ORAL.SYG SL STA (20:56)
--- NOTE | 2018-12-10 21:01 | Emergency Department Note ---
Disposition Clinical Impression: Right hip pain, Inability to ambulate due to hip Disposition: Admitted As Inpatient Condition: Good Referrals: NONE,PCP [Primary Care Provider] - Forms: ED Satisfaction Letter Time of Disposition: 00:20 General Adult HPI - General Chief complaint: ED Extremity Injury, Lower Stated complaint: right hip pain Time Seen by Provider: 12/10/18 20:18 Source: patient, family Mode of arrival: ambulatory Limitations: no limitations Nursing Notes Reviewed: Yes Vital Signs Reviewed: Yes - History of Present Illness HPI Narrative: Alert and oriented nontoxic-appearing 63-year-old female presents for evaluation of right hip pain. The patient underwent open reduction and internal fixation of a right hip fracture on 11/08/[address] Stock. Today, she had in-home home health physical therapy working with her. She states that while she was performing some abduction exercises, she felt a great deal of discomfort in the right hip. Pain has worsened since then to the point that she cannot bear weight on the extremity. Onset (ago): hour(s) Location: other (Right hip) Pain Severity: severe Pain Scale: 10 Quality: aching Consistency: constant Improves with: nothing, movement Worsens with: nothing Treatments Prior to Arrival: none - Related Data Home Medications Medication Instructions Recorded Confirmed Albuterol Sulfate [Proventil 2 puff IH Q4HR PRN 04/23/18 12/10/18 Inhaler] Paroxetine [Paxil] 30 mg PO DAILY 04/23/18 12/10/18 Acetaminophen [Tylenol] 325 - 650 mg PO Q4H PRN 11/09/18 12/10/18 Albuterol Sulfate [Ventolin Hfa] 1 puff IH Q4H PRN 11/09/18 12/10/18 Levothyroxine Sodium [Synthroid] 137 mcg PO DAILY 11/09/18 12/10/18 Chlordiazepoxide [Librium] 10 mg PO TID 11/20/18 12/10/18 Melatonin 5 mg Tablet 6 mg PO HS PRN 11/20/18 12/10/18 Aspirin 325 mg PO PRN PRN 12/10/18 12/10/18 Allergies Allergy/AdvReac Type Severity Reaction Status Date / Time No Known Allergies Allergy Verified 04/23/18 08:52 All systems ED: reviewed and negative except as stated. Review of Systems: As Per HPI Constitutional: Denies: fever, chills, weakness, weight change Eyes: Denies: eye pain, eye discharge, vision change ENT ED: Denies: ear pain, throat pain, dental pain, hearing loss, epistaxis, congestion, dysphagia Cardiovascular: Denies: chest pain, palpitations, dyspnea on exertion, edema, syncope Respiratory: Denies: cough, dyspnea, wheezes, hemoptysis, stridor Gastrointestinal: Denies: abdominal pain, nausea, vomiting, diarrhea, constipation, hematemesis, melena, hematochezia Genitourinary: Denies: dysuria, frequency, hematuria, discharge Musculoskeletal: Reports: as per HPI, arthralgia (Right hip pain). Denies: back pain, neck pain, myalgia Integumentary: Denies: rash, abrasion, lesions Neurological: Denies: headache, weakness, numbness, paresthesias, confusion, abnormal gait, vertigo Psychiatric: Denies: anxiety, depression, suicidal thoughts, homicidal thoughts, auditory hallucinations, visual hallucinations Endocrine: Denies: fatigue Hematological/Lymphatic: Denies: easy bleeding, easy bruising Allergic/Immunologic: Denies: facial swelling, urticaria Past Medical History - Past Medical History Attestation: Yes The following information was validated with the patient. Source: patient, nursing notes reviewed Medical history: Reports: COPD, hypertension, kidney stones, seizures Surgical history: Reports: , cataract, hysterectomy Psychiatric history: Reports: anxiety, depression - Social History Smoking Status: Former smoker Smokeless Tobacco Status: No Alcohol use: Reports: occasionally Drug use: Reports: none Physical Exam - General Limitations: no limitations General appearance: alert, in no apparent distress - Head Head exam: atraumatic, normocephalic, normal inspection - Eye Eye exam: Present: normal appearance, PERRL, EOMI. Absent: conjunctival injection - ENT ENT exam: mucous membranes moist - Neck Neck exam: Present: normal inspection, full ROM - Chest Chest inspection: Present: normal inspection, symmetric chest wall rise - Respiratory Respiratory exam: Present: normal lung sounds bilaterally. Absent: respiratory distress, wheezes, stridor, accessory muscle use, prolonged expiratory phase - Cardiovascular Cardiovascular exam: Present: regular rate, normal rhythm, normal heart sounds - Abdominal Exam Abdominal exam: Present: soft, Non-Tender - Extremities Exam Extremities exam: Present: pedal edema (2-3+ pretibial edema noted to the right lower extremity. 1+ pretibial edema noted to the left lower extremity.) - Expanded Lower Extremity Exam Hip/Pelvis exam: Present: erythema, pelvis stable. Absent: full ROM (Range of motion severely limited by pain, right hip), external rotation, internal rotation, shortening 1 - Surgical incision site noted to the lateral/proximal right thigh. No purulent discharge or drainage. Minimal surrounding erythema. No induration or fluctuance. Neurovascular/Tendon exam: Present: normal capillary refill. Absent: pulse deficit, tendon deficit, extremity cold to touch Gait: unable to bear weight - Neurological Exam Neurological exam: Present: alert, oriented X3 - Psychiatric Psychiatric exam: Present: normal affect, normal mood - Skin Skin exam: Present: warm, dry Course Course Narrative: 2215: I have been informed by the nail technician teacher that the patient is negative for a DVT or SVT of the right lower extremity. 0000: I spoke with Dr. Stock, orthopedic surgeon who is familiar with this patient. He recommends obtaining a noncontrast CT of the hip area he agrees with admission to the hospital service with in-house orthopedic consultation. The patient is agreeable with this plan. 0040: Patient accepted to the hospital service by Dr. Bennett. Vital Signs Temperature 97.6 F 12/10/18 19:57 Pulse Rate 124 12/10/18 19:57 Respiratory Rate 16 12/10/18 19:57 Blood Pressure 142/71 12/10/18 19:57 O2 Sat by Pulse Oximetry 98 12/10/18 19:57 Temperature 97.6 F 12/10/18 19:57 Pulse Rate 74 12/10/18 22:28 Respiratory Rate 16 12/10/18 22:28 Blood Pressure 135/63 12/10/18 22:28 O2 Sat by Pulse Oximetry 96 12/10/18 22:28 Oxygen Delivery Oxygen Delivery Room Air Medical Decision Making - Medical Records Medical records reviewed: Yes I reviewed the patient's medical records. - Lab Data Lab results reviewed: Yes I reviewed the patient's lab results. Lab results narrative: Lab Results 08/12/10/18 12/10/18 Range/Units 21:45 21:45 21:45 WBC 7.8 (4.3-11.1) K/mcL RBC 3.71 L (3.82-4.97) M/mcL Hgb 11.8 (11.5-15.4) g/dL Hct 36.0 (35.3-44.9) % MCV 97.0 (83.0-100.0) fL MCH 31.8 (28.0-33.3) pg MCHC 32.8 (31.6-35.5) g/dL RDW 12.9 (11.5-14.5) % Plt Count 266 (140-400) K/mcL MPV 9.4 (9.4-12.4) fL Immature Gran % 0.3 (0-4) % Seg Neutrophils % 66.6 % Lymphocytes % 20.2 % Monocytes % 8.9 % Eosinophils % 3.6 % Basophils % 0.4 % Neutrophils # 5.2 (1.6-8.9) K/mcL Lymphocytes # 1.6 (0.6-4.6) K/mcL Monocytes # 0.7 (0.0-1.3) K/mcL Eosinophils # 0.3 (0.0-0.6) K/mcL Basophils # 0.0 (0.0-0.2) K/mcL ESR 11 (0-15) mm/hr Sodium 130 L (136-145) mEq/L Potassium 3.6 (3.5-5.1) mEq/L Chloride 95 L (98-107) mEq/L Carbon Dioxide 26 (23-29) mEq/L BUN 8 (8-23) mg/dL Creatinine 0.55 L (0.60-1.20) mg/dL Est GFR ( Amer) > 60 (> 60) Est GFR (Non-Af Amer) > 60 (> 60) BUN/Creatinine Ratio 15 (6-26) Glucose 83 (70-105) mg/dL Calculated Osmolality 267 L (280-300) Calcium 9.3 (8.6-10.3) mg/dL C-Reactive Protein 26 H (Less than 10) mg/L Result diagrams: 12/10/18 21:45 12/10/18 21:45 Lab Results 12/10/18 12/10/1812/10/19 Range/Units 21:45 21:45 21:45 WBC 7.8 (4.3-11.1) K/mcL RBC 3.71 L (3.82-4.97) M/mcL Hgb 11.8 (11.5-15.4) g/dL Hct 36.0 (35.3-44.9) % MCV 97.0 (83.0-100.0) fL MCH 31.8 (28.0-33.3) pg MCHC 32.8 (31.6-35.5) g/dL RDW 12.9 (11.5-14.5) % Plt Count 266 (140-400) K/mcL MPV 9.4 (9.4-12.4) fL Immature Gran % 0.3 (0-4) % Seg Neutrophils % 66.6 % Lymphocytes % 20.2 % Monocytes % 8.9 % Eosinophils % 3.6 % Basophils % 0.4 % Neutrophils # 5.2 (1.6-8.9) K/mcL Lymphocytes # 1.6 (0.6-4.6) K/mcL Monocytes # 0.7 (0.0-1.3) K/mcL Eosinophils # 0.3 (0.0-0.6) K/mcL Basophils # 0.0 (0.0-0.2) K/mcL ESR 11 (0-15) mm/hr Sodium 130 L (136-145) mEq/L Potassium 3.6 (3.5-5.1) mEq/L Chloride 95 L (98-107) mEq/L Carbon Dioxide 26 (23-29) mEq/L BUN 8 (8-23) mg/dL Creatinine 0.55 L (0.60-1.20) mg/dL Est GFR ( Amer) > 60 (> 60) Est GFR (Non-Af Amer) > 60 (> 60) BUN/Creatinine Ratio 15 (6-26) Glucose 83 (70-105) mg/dL Calculated Osmolality 267 L (280-300) Calcium 9.3 (8.6-10.3) mg/dL C-Reactive Protein 26 H (Less than 10) mg/L - Radiology Data Radiology results reviewed: Yes I reviewed the patient's radiology results. Hip X-Ray 08/26/19 20:31 IMPRESSION: Stable alignment of right hip hemiarthroplasty. No acute osseous abnormality.. D/ / Delia Chau MD / Delia Chau MD Interpreting Provider: Delia Chau MD
[2018-12-10 22:02] LABS: Basophils % 0.4 %; Eosinophils # 0.3 K/mcL (0.0-0.6); Eosinophils % 3.6 %; Hemoglobin 11.8 g/dL (11.5-15.4); Immature Granulocytes % 0.3 % (0-4); Lymphocytes # 1.6 K/mcL (0.6-4.6); Lymphocytes % 20.2 %; Mean Corpuscular HGB Conc 32.8 g/dL (31.6-35.5); Mean Corpuscular Hemoglobin 31.8 pg (28.0-33.3); Mean Platelet Volume 9.4 fL (9.4-12.4); Monocytes # 0.7 K/mcL (0.0-1.3); Monocytes % 8.9 %; Neutrophils # 5.2 K/mcL (1.6-8.9); Platelet Count 266 K/mcL (140-400); Red Blood Count 3.71 M/mcL (3.82-4.97); Red Cell Distribution Width 12.9 % (11.5-14.5); Segmented Neutrophils % 66.6 %; White Blood Count 7.8 K/mcL (4.3-11.1)
[2018-12-10 23:54] LABS: BUN/Creatinine Ratio 15 (6-26); Blood Urea Nitrogen 8 mg/dL (8-23); C-Reactive Protein 26 mg/L (Less than 10); Calcium 9.3 mg/dL (8.6-10.3); Carbon Dioxide 26 mEq/L (23-29); Chloride 95 mEq/L (98-107); Glucose 83 mg/dL (70-105); Osmolality,Calculated 267 (280-300); Potassium 3.6 mEq/L (3.5-5.1); Sodium 130 mEq/L (136-145); eGFR For African Americans > 60 (> 60); eGFR For Non-African Americans > 60 (> 60)
[2018-12-11] MEDS ORDERED: Morphine Sulfate Oral CONC 10 MG/0.5 ML ORAL.SYG SL STA (01:13)
[2018-12-11] MEDS: *HR* HYDROcodone/Acet 5/325 mg TABLET PO PRN ×3 (03:31→15:20)
--- NOTE | 2018-12-11 05:44 | Internal Med History&Physical ---
<Nedra Mondragon - Last Filed: 12/11/18 06:20> Date of Encounter: 12/11/18 Time of Encounter: 05:44 Internal Medicine - H&P: HPI Chief complaint: right hip pain Admitted From: Emergency Dept Plans for Post Hospital Care: Transfer Inp Rehab Fac History of present illness: Ms. Hernandez is a 63 year old female with past medical history of COPD, hypothyroidism, anxiety who presented to [facility] complaining of right hip pain and unable to ambulate. Patient reported that on Monday she had PT and afterwards she had difficulty moving her right leg and then on Monday after PT she started having severe sharp pains when ambulating which prohibited her from weight-bearing. She came in because the the sharp pains for severe and would not resolve. Additionally she had nausea due to the pain. Pain was exacerbated by ambulating. Pain improved by not moving. Additionally she has had night sweats recently and constipation. Pain medication in the ED improved it as well. She denied trauma, fall, fever, chills, chest pain, shortness of breath, abdominal pain, calf pain. Of note she is s/p right hip hemiarthroplasty on 11/08/[address] Stock. She reports that 2 weeks ago she was given doxycycline and Keflex in orthopedic office due to infection of the incision site on the right hip. She reported that her told her the incision sites appear to be healing properly. She does have right lower extremity swelling that she says is actually improved from surgery. She drinks 2 beers every evening. She denied smoking and drug use. She has family history of colon cancer her mother and father. In the ED: WBC 7.8, hemoglobin 11.8, platelets to 66, sodium 130, CRP 26. Patient was given morphine and fentanyl in the ED. Blood cultures taken. Orthopedic surgery consulted. Hip x-ray demonstrating no acute osseous abnormality. Past Med Surg Social Fam HX - Past Medical History Attestation: Yes The following information was validated with the patient. Source: patient Medical history: COPD, hypertension, kidney stones, seizures Additional medical history: depression,anxiety,hypothyroid Psychiatric history: anxiety, depression - Past Surgical History Surgical History: , cataract, hysterectomy Additional surgical history: bilateral knee replacement,cubital tunnel surgery left elbow,tonsillectomy,left hip,foot surgery,left hip replacement, right shoulder sx. - Social History Smoking Status: Former smoker Smokeless Tobacco Status: No Alcohol use: recent (2 beers a night) Drug use: none - Family History Mother Hx Family Cancer: Yes (colon) Internal Medicine - H&P: Meds Albuterol Sulfate [Proventil Inhaler] 2 puff IH Q4HR PRN 04/23/18 [History] Paroxetine [Paxil] 30 mg PO DAILY 04/23/18 [History] Acetaminophen [Tylenol] 325 - 650 mg PO Q4H PRN 11/09/18 [History] Albuterol Sulfate [Ventolin Hfa] 1 puff IH Q4H PRN 11/09/18 [History] Levothyroxine Sodium [Synthroid] 137 mcg PO DAILY 11/09/18 [History] Chlordiazepoxide [Librium] 10 mg PO TID 11/20/18 [History] Melatonin 5 mg Tablet 6 mg PO HS PRN 11/20/18 [History] Aspirin 325 mg PO PRN PRN 12/10/18 [History] Allergy/AdvReac Type Severity Reaction Status Date / Time No Known Allergies Allergy Verified 04/23/18 08:52 All Systems PM: A 10-system review of systems was performed and is negative for pertinent findings except as documented above in the HPI. - Constitutional Constitutional: night sweats, no chills, no fever(s), no falls - EENT Eyes: no blurry vision, no change in vision - Cardiovascular Cardiovascular ROS IM: no chest pain, no dyspnea - Respiratory Respiratory: no cough, no dyspnea - Gastrointestinal Gastrointestinal: constipation, nausea, no abdominal pain, no diarrhea, no vomiting - Genitourinary Genitourinary: no dysuria - Musculoskeletal Musculoskeletal ROS IM: joint swelling, limited range of motion, muscle weakness, stiffness - Integumentary Integumentary IM: erythema, no rash - Neurological Neurological ROS: no dizziness, no frequent falls, no headache(s) - Hematologic/Lymphatic Hematologic/Lymphatic: no easy bleeding - Constitutional Vitals: Temp Pulse Resp BP Pulse Ox 98.0 F 63 16 112/47 97 12/11/18 03:23 12/11/18 03:23 12/11/18 03:23 12/11/18 03:23 12/11/18 03:37 Exam: Gen.: Vitals noted. No acute distress. AAOx3 HEENT: oropharynx clear, Normocephalic, atraumatic Cardiac: RRR, no murmur, +S1/S2 Pulmonary: slight right lung wheezes, no rales or rhonchi, equal chest expa nsion Abdomen: soft, nontender, Bowel sounds noted, no guarding MSK: ROM decreased, right knee joint swelling noted Extremities: right LE edema and erythema, nontender calf, no cyanosis or clubbing Neuro: A&Ox3, moves all extremities, no focal deficits Psych: Appropriate mood and behavior Internal Med - H&P Results - Labs CBC & Chem 7: 12/10/18 21:45 12/10/18 21:45 Labs: Short CBC 12/10/18 Range/Units 21:45 WBC 7.8 (4.3-11.1) K/mcL Hgb 11.8 (11.5-15.4) g/dL Hct 36.0 (35.3-44.9) % Plt Count 266 (140-400) K/mcL Neutrophils # 5.2 (1.6-8.9) K/mcL BMP 12/10/18 21:45 Sodium 130 L Potassium 3.6 Chloride 95 L Carbon Dioxide 26 BUN 8 Creatinine 0.55 L Glucose 83 Calcium 9.3 - Impressions ITS Impressions Hip X-Ray 12/10/18 20:31 IMPRESSION: Stable alignment of right hip hemiarthroplasty. No acute osseous abnormality.. D/ / Delia Chau MD / Delia Chau MD Interpreting Provider: Delia Chau MD - Assessment and Plan (1) Right hip pain Current Visit: Yes Status: Acute Assessment and plan: Right hip pain after physical therapy. On Monday after PT she had difficulty lifting her leg and then on Monday after PT she can no longer have weight- bearing due to the severe sharp shooting pains in her right hip. No tra omayra/falls. 2 weeks ago she was treated with doxycycline and Keflex and orthopedic office for infection of the incision sites. - Concern for re-fracture or displacement. Also potential infection of hardware or cellulitis. muscular strain. - WBC 7.8, hemoglobin 11.8, platelets to 66, sodium 130, CRP 26. - Hip x-ray demonstrating no acute osseous abnormality. - Examination of hip shows clean incision with opening however no erythema or drainage around incision. Plan - Orthopedic surgery consulted - right hip CT pending - [place] PRN pain -Zofran PRN nausea - wound culture and blood culture pending (2) Closed right hip fracture Current Visit: No Status: Acute Assessment and plan: s/p Right hip hemiarthroplasty on 11/08/[address] Stock Qualifiers: Encounter type: subsequent encounter Fracture healing: with routine healing Qualified Code(s): S72.001D - Fracture of unspecified part of neck of right femur, subsequent encounter for closed fracture with routine healing (3) Anxiety and depression Current Visit: No Status: Chronic Assessment and plan: History of anxiety and depression taking paroxetine. Continue home medication. (4) COPD (chronic obstructive pulmonary disease) Current Visit: No Status: Suspected Assessment and plan: History of COPD not on oxygen. Uses albuterol PRN. -On room air -Continue duoneb prn Qualifiers: COPD type: unspecified COPD Qualified Code(s): J44.9 - Chronic obstructive pulmonary disease, unspecified (5) Hypothyroidism Current Visit: No Status: Chronic Assessment and plan: History of hypothyroidism taking levothyroxine. Continue her medication. Qualifiers: Hypothyroidism type: unspecified Qualified Code(s): E03.9 - Hypothyroidism, unspecified (6) Alcohol abuse Current Visit: No Status: Chronic Assessment and plan: Patient reports drinking 2 beers every evening. -Will order for her to have CIWA protocol with Ativan PRN withdrawal symptoms. -Of note during last admission she cannot require Ativan for withdrawal. (7) DVT prophylaxis Current Visit: No Status: Acute Assessment and plan: Heparin SQ (8) Right leg swelling Current Visit: Yes Status: Acute Assessment and plan: Right calf swelling and erythema. Patient reports the swelling has actually improved since her fracture. -Concern for potential DVT as she has had recent surgery and has not been very mobile. Also potential cellulitis. -Erythema and swelling of right lower extremity. plan -will order a right lower extremity ultrasound to evaluate for DVT - will order Zosyn and vancomycin for empiric coverage for cellulitis - Time Spent With Patient Total time spent is greater than 50% in coordination of care (as documented) at patient's floor/unit and/or counseling patient: <Bulmaro Bennett - Last Filed: 12/11/18 07:05> Date of Encounter: 12/11/18 Time of Encounter: 06:10 - Constitutional Constitutional: no chills, no fever(s) - EENT Nose, mouth and throat: no nasal congestion, no sore throat - Cardiovascular Cardiovascular ROS IM: no chest pain, no dyspnea, no dyspnea on exertion - Respiratory Respiratory: no cough, no dyspnea - Gastrointestinal Gastrointestinal: no abdominal pain, no diarrhea, no vomiting - Genitourinary Genitourinary: no dysuria, no flank pain, no hematuria - Musculoskeletal Musculoskeletal ROS IM: arthralgias, joint swelling, limited range of motion, muscle weakness, no back pain - Integumentary Integumentary IM: erythema, no jaundice - Allergic/Immunologic Allergic/Immunologic: no GI upset with certain foods - Constitutional Vitals: Temp Pulse Resp BP Pulse Ox 98.0 F 63 16 112/47 97 12/11/18 03:23 12/11/18 03:23 12/11/18 03:23 12/11/18 03:23 12/11/18 03:37 General appearance: Present: A&O X 3, no acute distress - Head Head exam: Present: normal inspection - Eye Eye exam: Present: EOMI, PERRL. Absent: scleral icterus - ENT ENT exam: Present: mucous membranes dry, normal exam, normal oropharynx - Neck Neck exam general surgery: Present: supple, trachea midline - Respiratory Respiratory exam: Present: CTAB. Absent: chest wall tenderness, rales, rhonchi, wheezes - Cardiovascular Cardiovascular exam: Present: RRR, +S1, +S2 - GI/Abdominal GI/Abdominal exam: Present: soft. Absent: hepatomegaly, splenomegaly - Extremities Exam Extremities exam: Present: normal capillary refill, tenderness (right hip area with warmth, redness, and pain), radial pulses palpable and symmetrical. Absent: calf tenderness - Back Exam Back exam: Absent: CVA tenderness (L), CVA tenderness (R) - Neurological Exam Neurological exam: Present: alert, CN II-XII intact, oriented X3, no focal deficits - Skin Skin exam: Present: dry, intact, warm Internal Med - H&P Results - Labs CBC & Chem 7: 12/10/18 21:45 12/10/18 21:45 Labs: Short CBC 12/10/18 Range/Units 21:45 WBC 7.8 (4.3-11.1) K/mcL Hgb 11.8 (11.5-15.4) g/dL Hct 36.0 (35.3-44.9) % Plt Count 266 (140-400) K/mcL Neutrophils # 5.2 (1.6-8.9) K/mcL BMP 12/10/18 21:45 Sodium 130 L Potassium 3.6 Chloride 95 L Carbon Dioxide 26 BUN 8 Creatinine 0.55 L Glucose 83 Calcium 9.3 - Impressions ITS Impressions Hip X-Ray 12/10/18 20:31 IMPRESSION: Stable alignment of right hip hemiarthroplasty. No acute osseous abnormality.. D/ / Delia Chau MD / Delia Chau MD Interpreting Provider: Delia Chau MD - Assessment and Plan (1) Hypothyroidism Current Visit: No Status: Chronic Qualifiers: Hypothyroidism type: unspecified Qualified Code(s): E03.9 - Hypothyroidism, unspecified (2) Anxiety and depression Current Visit: No Status: Chronic (3) Closed right hip fracture Current Visit: No Status: Acute Qualifiers: Encounter type: subsequent encounter Fracture healing: with routine healing Qualified Code(s): S72.001D - Fracture of unspecified part of neck of right femur, subsequent encounter for closed fracture with routine healing (4) DVT prophylaxis Current Visit: No Status: Acute (5) Alcohol abuse Current Visit: No Status: Chronic (6) COPD (chronic obstructive pulmonary disease) Current Visit: No Status: Suspected Qualifiers: COPD type: unspecified COPD Qualified Code(s): J44.9 - Chronic obstructive pulmonary disease, unspecified (7) Right hip pain Current Visit: Yes Status: Acute (8) Right leg swelling Current Visit: Yes Status: Acute - Time Spent With Patient Total time spent is greater than 50% in coordination of care (as documented) at patient's floor/unit and/or counseling patient: - Attending Attestation I discussed the patient MI'KMAQ, past medical history, review of systems, lab data, imaging data, and exam by Dr. Sarmiento. I then saw and examined patient in dependently as well. On exam, she does have warmth, tenderness, and redness along her right hip and leg extending down to her pretibial area. The wound appears to be clean, dry, and intact. I suspect that she has some underlying cellulitis versus a deeper hardware infection. At the present time, it appears mostly cellulitis. As such, we will obtain blood cultures and start antibiotics. I also met up and spoke with Dr. Stock and asked him to see her in consultation regarding her hip prosthesis and any further imaging and/or intervention modality necessary. Other than my comments above and documented exam findings, I agree with Dr. Sarmiento's assessment and plan.
[2018-12-11] MEDS ORDERED: Ondansetron ODT 4 MG TAB.RAPDIS SL PRN (06:21)
[2018-12-11] MEDS ORDERED: Naloxone 0.4 MG/ML INJ IVP PRN (06:21)
[2018-12-11] MEDS ORDERED: Acetaminophen 325 MG TABLET PO PRN (06:21)
[2018-12-11] MEDS ORDERED: Aspirin 325 MG TABLET PO PRN (06:25)
[2018-12-11] MEDS ORDERED: *HR* LORazepam 2 MG/ML VIAL IVP PRN (06:31)
--- NOTE | 2018-12-11 06:32 | Orthopedics Progress Note ---
Date of Encounter: 12/11/18 Time of Encounter: 06:31 Subjective Interval history: Patient seen this morning, well known to me, status post right hip bharat-and right total shoulder replacement for fractures, patient with increased pain secondary to therapy, x-rays and CT reviewed no abnormal findings. Right lower extremity neurovascularly intact. Positive swelling concern for cellulitis, Doppler reported as negative. Recommend MRI of lumbar spine. Objective Vital signs: Vital Signs Temp Pulse Resp BP Pulse Ox 12/11/18 03:37 97 12/11/18 03:23 98.0 F 63 16 112/47 97 12/11/18 02:09 16 116/67 12/10/18 22:28 74 16 135/63 96 12/10/18 19:57 97.6 F 124 16 142/71 98 Intake and Output 12/10/18 12/10/18 12/11/18 15:59 23:59 07:59 Intake Total 0 / 0 Output Total 325 / 325 Balance -325 / -325 Intake: Oral 0 / 0 Output: Catheter 325 / 325 Other: Weight 68.039 kg - Labs CBC & BMP: 12/10/18 21:45 12/10/18 21:45 Labs: Abnormal lab results RBC 3.71 M/mcL (3.82-4.97) L 12/10/18 21:45 Sodium 130 mEq/L (136-145) L 12/10/18 21:45 Chloride 95 mEq/L (98-107) L 12/10/18 21:45 Creatinine 0.55 mg/dL (0.60-1.20) L 12/10/18 21:45 Calculated Osmolality 267 (280-300) L 12/10/18 21:45 C-Reactive Protein 26 mg/L (Less than 10) H 12/10/18 21:45 Consult Discharge Plan - Plan Referrals: NONE,PCP [Primary Care Provider] -
[2018-12-11] MEDS: Piperacillin/Tazobactam 3.375 GM in 0.9 % Sodium Chloride Mini Bag 100 ML IVPB SCH ×2 (08:20→15:20)
--- NOTE | 2018-12-11 11:31 | Event Note ---
Date of Encounter: 12/11/18 Time of Encounter: 12:30 Patient is status post Right hip hemiarthroplasty, revision humeral component right total shoulder replacement reverse with fracture fixation Date: 11/08/2018 She was readmitted after inability to ambulate. Patient seen concurrently with Dr. Flynn. Dr. Stock had ordered MRI lumbar spine as patient had previously been doing relatively well with her hemiwalker and states that last weekend the therapist had her doing new exercises afterwhich this weekend she developed sudden inability to bear weight to the RLE secondary to right groin pain. MRI lumbar spine reveals: 1. mild chronic loss of vertebral body height involving L1 and L4, 2. Severe spinal canal stenosis at L3-L4 and L4-L5. Moderate spinal canal stenosis at L2-L3, 3. Degenerative changes contribute to multilevel neural foraminal narrowing, and 4. Dextroscoliosis of the lumbar spine. Given patient's history of falling, new onset hip pain and inability to ambulate as well as MRI findings, Dr. Flynn was consulted for recommendations. He states that as patient has a recent complex history of fall with multi-trauma requiring surgery on two major joints from which she is not yet recovered, he would like to get Xray lumbar spine to further evaluate her scoliosis. She relates she was told as a child she had scoliosis. He states further more once she is farther out of her postoperative healing window of her right hip and shoulder, she should have an EMG and ANNABEL consult with our interventionalists and/or physiatrists to further evaluate. In the mean time, patient should continue with therapy, though perhaps decreased hip motion. He would like to see her after completion of all of the above tests/consultations. With regard to her hip and shoulder, patient appears improved from last examination from this author. Patient noted to be alert and oriented x 3. She is anxious regarding her discharge and expresses anxiety regarding having to go to "[facility] with old people". Right shoulder in slingshot sling. Incision healing appropriately. Bandaid noted over superior shoulder. Sensation intact. No tenderness to palpation. Wrist motion intact. Mud Worker strength intact. Radial pulses 2+. Right hip incision greatly improved. Continued erythema extending from wound margins superior and distal appx 2cm. Scabbing to anterior incision. Posterior incision appears sealed with decreased gapping. No drainage noted. No palpable induration or fluctuance. No expressed drainage. Mild tenderness to palpation. Knee motion intact. Ankle motion intact. 3+ pitting edema to RLE from foot to just above knee. Faint erythema noted to RLE in area of swelling. Mild calf tenderness bilaterally. Neurovascularly itnact. Sensation intact. Patient noted to have b/l LE elevated. s/p right bharat hip 11/08/18 s/p revision humeral component right total shoulder replacement reverse with fracture fixation 11/08/18 lumbar stenosis scoliosis cellulitis right groin pain difficulty walking The above as mentioned re: Dr. Flynn's assessment and recommendations will be arranged. With regard to right shoulder: continue no shoulder motion, nonweightbearing, apply sling at all times - remove for hygiene only; keep incision clean and dry; notify provider with any concerns regarding drainage or incision disruption With regard to right hip: incision care including daily cleansing and keep clean and dry, avoid excessive hip motion, PT/OT, WBAT with hemiwalker Right leg cellulitis: continue antibiotics as per hospitalist team Patient and I discussed her likely need for jail and rehabilitation. She expresses numerous times that her " can't take care of me" and therefore she will be unable to return home upon discharge. She is again reluctant to "go to [facility]" We discussed that social work is involved in her care and they would be assisting in getting her set up with appropriate care. We will continue to follow patient. Please reach out with any concerns or questions regarding patient's orthopedic care.
--- NOTE | 2018-12-11 13:52 | Event Note ---
Date of Encounter: 12/11/18 Time of Encounter: 09:15 Patient was seen at bedside in the morning. H&P reviewed. Orthopedics was consulted. Planning to get the MRI of the back. Pain well controlled. Physical examination consistent with a cellulitis. Continue vancomycin and Zosyn for now Medications will be reconciled once confirmed.
[2018-12-11] MEDS: *HR* Heparin 5,000 UNIT/ML VIAL SQ SCH ×2 (14:29→20:22)
[2018-12-11] MEDS: *HR* OxyCODONE Immed Rel 5 MG TABLET PO PRN (20:22)
[2018-12-12] MEDS: Piperacillin/Tazobactam 3.375 GM in 0.9 % Sodium Chloride Mini Bag 100 ML IVPB SCH ×2 (00:06→08:22)
[2018-12-12] MEDS: *HR* Heparin 5,000 UNIT/ML VIAL SQ SCH ×3 (06:42→20:30)
--- NOTE | 2018-12-12 06:50 | Orthopedics Progress Note ---
Date of Encounter: 12/12/18 Time of Encounter: 06:49 Subjective Interval history: Patient seen this morning, right lower extremity swelling improving, patient seen by Dr. Flynn concern for lumbar related pathology. Patient stable for my perspective, await recommendations. Objective Vital signs: Vital Signs Temp Pulse Resp BP Pulse Ox 12/12/18 04:21 98.6 F 87 17 100/62 98 12/11/18 19:02 98.1 F 70 18 119/72 95 12/11/18 07:17 98.0 F 63 18 98/53 Intake and Output 12/11/18 12/11/18 12/12/18 15:59 23:59 07:59 Intake Total 1070 / 1520 450 / 1520 100 / 100 Output Total 375 / 2200 1500 / 2200 1000 / 1000 Balance 695 / -680 -1050 / -680 -900 / -900 Intake: IV Fluids 350 / 700 350 / 700 100 / 100 Zosyn 3.375 GM In 0.9 % Sodium 100 / 200 100 / 200 100 / 100 Chloride (Mini-Bag +) 100 ML @ 25 mls/hr IVPB Q8HR [facility] Rx#: [id number] Vancocin 1,000 MG In 0.9 % 250 / 500 250 / 500 Sodium Chloride 250 ML @ 167 mls/hr IVPB Q12H [facility] Rx#: [id number] Oral 720 / 820 100 / 820 Output: Catheter 375 / 2200 1500 / 2200 1000 / 1000 Other: Meal Lunch Dinner Percent of Meal Consumed 50% 100% - Labs CBC & BMP: 12/10/18 21:45 12/10/18 21:45 Labs: Abnormal lab results RBC 3.71 M/mcL (3.82-4.97) L 12/10/18 21:45 Sodium 130 mEq/L (136-145) L 12/10/18 21:45 Chloride 95 mEq/L (98-107) L 12/10/18 21:45 Creatinine 0.55 mg/dL (0.60-1.20) L 12/10/18 21:45 Calculated Osmolality 267 (280-300) L 12/10/18 21:45 C-Reactive Protein 26 mg/L (Less than 10) H 12/10/18 21:45 Consult Discharge Plan - Plan Referrals: NONE,PCP [Primary Care Provider] -
[2018-12-12 07:00] LABS: Basophils % 0.5 %; Eosinophils # 0.4 K/mcL (0.0-0.6); Eosinophils % 5.8 %; Hematocrit 36.4 % (35.3-44.9); Hemoglobin 12.2 g/dL (11.5-15.4); Immature Granulocytes % 0.2 % (0-4); Lymphocytes # 1.3 K/mcL (0.6-4.6); Lymphocytes % 20.4 %; Mean Corpuscular HGB Conc 33.5 g/dL (31.6-35.5); Mean Corpuscular Hemoglobin 32.8 pg (28.0-33.3); Mean Corpuscular Volume 97.8 fL (83.0-100.0); Mean Platelet Volume 9.8 fL (9.4-12.4); Monocytes # 0.5 K/mcL (0.0-1.3); Monocytes % 7.9 %; Neutrophils # 4.3 K/mcL (1.6-8.9); Platelet Count 252 K/mcL (140-400); Red Blood Count 3.72 M/mcL (3.82-4.97); Red Cell Distribution Width 12.8 % (11.5-14.5); Segmented Neutrophils % 65.2 %; White Blood Count 6.6 K/mcL (4.3-11.1)
[2018-12-12 07:15] LABS: BUN/Creatinine Ratio 14 (6-26); Blood Urea Nitrogen 10 mg/dL (8-23); Calcium 8.9 mg/dL (8.6-10.3); Carbon Dioxide 27 mEq/L (23-29); Chloride 95 mEq/L (98-107); Glucose 102 mg/dL (70-105); Osmolality,Calculated 271 (280-300); Potassium 4.5 mEq/L (3.5-5.1); Sodium 131 mEq/L (136-145); eGFR For African Americans > 60 (> 60); eGFR For Non-African Americans > 60 (> 60)
--- NOTE | 2018-12-12 12:44 | Internal Med Progress Note ---
Hospitalist Progress Note - Encounter Date of Encounter: 12/12/18 Time of Encounter: 11:15 - Subjective Interval History: Patient was seen at bedside. Still complaining of the pain in the right hip, back, right flank. Denies fever, chills, rigors. Denies chest pain or shortness of breath. Denied any discharge from the right hip incision site. No plan for the surgery at this point. - Exam Vitals: Temp Pulse Resp BP Pulse Ox 98.1 F 82 16 169/72 96 12/12/18 08:00 12/12/18 08:00 12/12/18 08:00 12/12/18 08:00 12/12/18 08:00 Exam: General: Alert and oriented, no physical distress, able to follow commands. HEENT: No thyromegaly, no lymphadenopathy, no discharge. Eyes: No discharge. Normal conjuctiva, no icterus Respiratory: Normal vesicular breathing, no added sounds, breathing equal in both sides. CVS: Normal heart sounds, no murmurs, regular rhthm, no edema Extremities: No peripheral edema, peripheral pulses intact. RIght shoulder in sling. Right hip incision without any disharge. No redness or tenderness appreciated. ROM limited due to pain. Right lower extremtiy red, warm, tender, swelled as comapred to left, no wound or ulcers appreciated. Looking better than yesterday exam. No discharge noted. ROM around right knee normal. Lymph nodes: No lymphadenopathy Gastrointestinal: Soft, nontender abdomen, normal abdominal sounds. No dist ention noted. Genitourinary: No paravertebral tenderness. Skin: No rash, ulcers or wound. Neurological: Alert and oriented. No focal deficits. Cranial nerves II-XII intact. - Assessment and Plan (1) Cellulitis of right leg Current Visit: Yes Status: Acute Assessment and Plan: Right leg examination concerning for cellulitis. Improvement since yesterday. Duplex scans are negative for DVT. Currently on vancomycin and Zosyn. Considering history of multiple admissions, continue vancomycin, discontinue Zosyn at this point. Obtain x-ray of the right knee considering the history of replacement to rule out any joint involvement PT/OT. (2) Right hip pain Current Visit: Yes Status: Acute Assessment and Plan: Pain started after the physical therapy. Patient mentioned that she is unable to be await on the right hip as it causes severe sharp shooting pain. No recent trauma or fall. She recently had infection of the incision site. Incision site looks clean at this point. Does not seem to be infected. CT scan of the hip joint was done which showed right hip hemiarthroplasty with out any evidence of postoperative complication. Small superficial hematoma with no gas bubbles to indicate an infection. Examination benign. Ortho on board. No surgical intervention at this point. Pain management PT/OT. (3) Closed right hip fracture Current Visit: No Status: Acute Assessment and Plan: s/p Right hip hemiarthroplasty on 11/08/[address] scan findings mentioned. No surgical site infection No intervention at this point (4) Hypothyroidism Current Visit: No Status: Chronic Assessment and Plan: Continue home dose of levothyroxine. (5) Anxiety and depression Current Visit: No Status: Chronic Assessment and Plan: Continue on paroxetine (6) DVT prophylaxis Current Visit: No Status: Acute Assessment and Plan: Heparin SQ (7) Alcohol abuse Current Visit: No Status: Chronic Assessment and Plan: Patient has been on Librium for alcohol withdrawal. Continue (8) COPD (chronic obstructive pulmonary disease) Current Visit: No Status: Suspected Assessment and Plan: History of COPD not on oxygen. Uses albuterol PRN. Not in exacerbation -Continue as needed breathing Treatments (9) Lumbar stenosis Current Visit: Yes Status: Acute Assessment and Plan: There were concerns that the patient hip pain and lower extremity pain could be because of lumbar spine arthritis or stenosis. MRI of the lumbar spine was done which showed osteoarthritis with severe spinal canal stenosis at L3-L4 and L4-L5 with moderate stenosis at L2-L3. Dextroscoliosis of the lumbar spine. Spine surgeon consult placed. Appreciate recommendations. PT/OT. - Time Spent with Patient Total time spent is greater than 50% in coordination of care (as documented) at patient's floor/unit and/or counseling patient: Internal Medicine: Result - Labs CBC & Chem 7: 12/12/18 06:15 12/12/18 06:15 Labs: Short CBC 12/12/18 Range/Units 06:15 WBC 6.6 (4.3-11.1) K/mcL Hgb 12.2 (11.5-15.4) g/dL Hct 36.4 (35.3-44.9) % Plt Count 252 (140-400) K/mcL Neutrophils # 4.3 (1.6-8.9) K/mcL BMP 12/12/18 06:15 Sodium 131 L Potassium 4.5 Chloride 95 L Carbon Dioxide 27 BUN 10 Creatinine 0.69 Glucose 102 Calcium 8.9 - Impressions Impressions Lumbar Spine X-Ray 12/11/18 13:11 IMPRESSION: No acute fracture in the lumbar spine. Dextroscoliosis. Grade 1 L5 on S1 anterolisthesis. Chronic height loss at the superior endplates of L1 and L4. Degenerative changes. D/ / Heladio Dc MD / Heladio Dc MD Interpreting Provider: Heladio Dc MD Consult Discharge Plan - Plan Referrals: NONE,PCP [Primary Care Provider] - (3) Closed right hip fracture Qualifiers: Encounter type: subsequent encounter Fracture healing: with routine healing Qualified Code(s): S72.001D - Fracture of unspecified part of neck of right femur, subsequent encounter for closed fracture with routine healing (4) Hypothyroidism Qualifiers: Hypothyroidism type: unspecified Qualified Code(s): E03.9 - Hypothyroidism, unspecified (8) COPD (chronic obstructive pulmonary disease) Qualifiers: COPD type: unspecified COPD Qualified Code(s): J44.9 - Chronic obstructive pulmonary disease, unspecified (9) Lumbar stenosis Qualifiers: Neurogenic claudication status: unspecified Qualified Code(s): M48.061 - Spinal stenosis, lumbar region without neurogenic claudication
[2018-12-12] MEDS ORDERED: Melatonin 3 MG TABLET PO PRN (12:55)
[2018-12-12] MEDS: *HR* OxyCODONE Immed Rel 5 MG TABLET PO PRN ×2 (13:46→20:33)
--- NOTE | 2018-12-12 15:26 | Orthopedics Progress Note ---
Date of Encounter: 12/12/18 Time of Encounter: 10:15 - Assessment and Plan (1) Cellulitis of right leg Current Visit: Yes Status: Acute (2) Inability to ambulate due to hip Current Visit: Yes Status: Acute (3) Lumbar stenosis Current Visit: Yes Status: Acute Qualifiers: Neurogenic claudication status: unspecified Qualified Code(s): M48.061 - Spinal stenosis, lumbar region without neurogenic claudication (4) Right hip pain Current Visit: Yes Status: Acute (5) Right leg swelling Current Visit: Yes Status: Acute (6) History of right hip hemiarthroplasty Current Visit: No Status: Acute (7) Status post reverse total arthroplasty of right shoulder Current Visit: No Status: Acute Subjective Principal diagnosis: h/o orthopedic surgery Interval history: Patient is status post Right hip hemiarthroplasty, revision humeral component right total shoulder replacement reverse with fracture fixation Date: 11/08/2018 She was readmitted after inability to ambulate. Patient seen by this author concurrently with Dr. Flynn on 12/11. Dr. Stock had ordered MRI lumbar spine as patient had previously been doing relatively well with her hemiwalker and states that last weekend the therapist had her doing new exercises afterwhich this weekend she developed sudden inability to bear weight to the RLE secondary to right groin pain. MRI lumbar spine reveals: 1. mild chronic loss of vertebral body height involving L1 and L4, 2. Severe spinal canal stenosis at L3-L4 and L4-L5. Moderate spinal canal stenosis at L2-L3, 3. Degenerative changes contribute to multilevel neural foraminal narrowing, and 4. Dextroscoliosis of the lumbar spine. Given patient's history of falling, new onset hip pain and inability to ambulate as well as MRI findings, Dr. Flynn was consulted for recommendations. He states that as patient has a recent complex history of fall with multi-trauma requiring surgery on two major joints from which she is not yet recovered, he would like to get Xray lumbar spine to further evaluate her scoliosis. She relates she was told as a child she had scoliosis. He states further more once she is farther out of her postoperative healing window of her right hip and shoulder, she should have an EMG and ANNABEL consult with our interventionalists and/or physiatrists to further evaluate. In the mean time, patient should continue with therapy, though perhaps decreased hip motion. He would like to see her after completion of all of the above tests/consultations. With regard to her hip and shoulder, patient appears improved from last examination from this author. Patient noted to be alert and oriented x 3. She is again anxious regarding her discharge and expresses anxiety regarding having to go to "shelter with old people". Right shoulder in slingshot sling. Incision healing appropriately. Bandaid noted over superior shoulder. Sensation intact. No tenderness to palpation. Wrist motion intact. Project Manager/Design Manager strength intact. Radial pulses 2+. Right hip incision greatly improved. Continued erythema extending from wound margins superior and distal appx 2cm. Scabbing to anterior incision. Posterior incision appears sealed with decreased gapping. No drainage noted. No palpable induration or fluctuance. No expressed drainage. Mild tenderness to palpation. Knee motion intact. Ankle motion intact. 1+ pitting edema to RLE from foot to just above knee. Faint erythema noted to RLE in area of swelling - much improved to . Mild calf tenderness bilaterally. Neurovascularly itnact. Sensation intact. Patient noted to have b/l LE elevated. s/p right bharat hip 11/08/18 s/p revision humeral component right total shoulder replacement reverse with fracture fixation 11/08/18 lumbar stenosis scoliosis cellulitis right groin pain difficulty walking The above as mentioned re: Dr. Flynn's assessment and recommendations will be arranged. With regard to right shoulder: continue no shoulder motion, nonweightbearing, apply sling at all times - remove for hygiene only; keep incision clean and dry; notify provider with any concerns regarding drainage or incision disruption With regard to right hip: incision care including daily cleansing and keep clean and dry, avoid excessive hip motion, PT/OT, WBAT with hemiwalker Right leg cellulitis: continue antibiotics as per hospitalist team Patient and I discussed her likely need for long term and rehabilitation. She expresses numerous times that her " can't take care of me" and therefore she will be unable to return home upon discharge. She is again reluctant to "go to shelter". We discussed that social work is involved in her care and they would be assisting in getting her set up with appropriate care. We will continue to follow patient. Please reach out with any concerns or questions regarding patient's orthopedic care. Objective Vital signs: Vital Signs Temp Pulse Resp BP Pulse Ox 12/12/18 08:00 98.1 F 82 16 169/72 96 12/12/18 04:21 98.6 F 87 17 100/62 98 12/11/18 19:02 98.1 F 70 18 119/72 95 Intake and Output 12/11/18 12/12/18 12/12/18 23:59 07:59 15:59 Intake Total 450 / 1520 100 / 350 250 / 350 Output Total 1500 / 2200 1000 / 1000 Balance -1050 / -680 -900 / -650 250 / -650 Intake: IV Fluids 350 / 700 100 / 350 250 / 350 Zosyn 3.375 GM In 0.9 % Sodium 100 / 200 100 / 100 Chloride (Mini-Bag +) 100 ML @ 25 mls/hr IVPB Q8HR [facility] Rx#: [id number] Vancocin 1,000 MG In 0.9 % 250 / 500 250 / 250 Sodium Chloride 250 ML @ 167 mls/hr IVPB Q12H [facility] Rx#: [id number] Oral 100 / 820 Output: Catheter 1500 / 2200 1000 / 1000 Other: Meal Dinner Percent of Meal Consumed 100% - Labs CBC & BMP: 12/12/18 06:15 12/12/18 06:15 Labs: Abnormal lab results RBC 3.72 M/mcL (3.82-4.97) L 12/12/18 06:15 Sodium 131 mEq/L (136-145) L 12/12/18 06:15 Chloride 95 mEq/L (98-107) L 12/12/18 06:15 Creatinine 0.55 mg/dL (0.60-1.20) L 12/10/18 21:45 Calculated Osmolality 271 (280-300) L 12/12/18 06:15 C-Reactive Protein 26 mg/L (Less than 10) H 12/10/18 21:45 Consult Discharge Plan - Plan Referrals: NONE,PCP [Primary Care Provider] -
[2018-12-12] MEDS: *HR* HYDROcodone/Acet 5/325 mg TABLET PO PRN (21:58)
[2018-12-13] MEDS: *HR* Heparin 5,000 UNIT/ML VIAL SQ SCH ×3 (05:35→21:47)
[2018-12-13] MEDS: *HR* OxyCODONE Immed Rel 5 MG TABLET PO PRN ×2 (05:35→19:11)
[2018-12-13] MEDS: Ipratropium/Albuterol Neb 3 ML IH PRN ×2 (05:54→16:12)
[2018-12-13 06:28] LABS: BUN/Creatinine Ratio 14 (6-26); Blood Urea Nitrogen 10 mg/dL (8-23); Calcium 8.9 mg/dL (8.6-10.3); Carbon Dioxide 29 mEq/L (23-29); Chloride 94 mEq/L (98-107); Glucose 98 mg/dL (70-105); Osmolality,Calculated 271 (280-300); Potassium 4.1 mEq/L (3.5-5.1); Sodium 131 mEq/L (136-145); eGFR For African Americans > 60 (> 60); eGFR For Non-African Americans > 60 (> 60)
[2018-12-13] MEDS: *HR* HYDROcodone/Acet 5/325 mg TABLET PO PRN (08:23)
--- NOTE | 2018-12-13 11:40 | Orthopedics Progress Note ---
Date of Encounter: 12/13/18 Time of Encounter: 13:00 - Assessment and Plan (1) Cellulitis of right leg Status: Acute (2) Inability to ambulate due to hip Status: Acute (3) Lumbar stenosis Status: Acute Qualifiers: Neurogenic claudication status: unspecified Qualified Code(s): M48.061 - Spinal stenosis, lumbar region without neurogenic claudication (4) Right hip pain Status: Acute (5) Right leg swelling Status: Acute (6) History of right hip hemiarthroplasty Status: Acute (7) Status post reverse total arthroplasty of right shoulder Status: Acute Subjective Principal diagnosis: h/o orthopedic surgery Interval history: Patient is status post Right hip hemiarthroplasty, revision humeral component right total shoulder replacement reverse with fracture fixation Date: 11/08/2018 She was readmitted after inability to ambulate. Patient seen by this author concurrently with Dr. Flynn on 12/11. Dr. Stock had ordered MRI lumbar spine as patient had previously been doing relatively well with her hemiwalker and states that last weekend the therapist had her doing new exercises afterwhich this weekend she developed sudden inability to bear weight to the RLE secondary to right groin pain. MRI lumbar spine reveals: 1. mild chronic loss of vertebral body height involvin g L1 and L4, 2. Severe spinal canal stenosis at L3-L4 and L4-L5. Moderate spinal canal stenosis at L2-L3, 3. Degenerative changes contribute to multilevel neural foraminal narrowing, and 4. Dextroscoliosis of the lumbar spine. Given patient's history of falling, new onset hip pain and inability to ambulate as well as MRI findings, Dr. Flynn was consulted for recommendations. He states that as patient has a recent complex history of fall with multi-trauma requiring surgery on two major joints from which she is not yet recovered, he would like to get Xray lumbar spine to further evaluate her scoliosis. She relates she was told as a child she had scoliosis. He states further more once she is farther out of her postoperative healing window of her right hip and shoulder, she should have an EMG and ANNABEL consult with our interventionalists and/or physiatrists to further evaluate. In the mean time, patient should continue with therapy, though perhaps decreased hip motion. He would like to see her after completion of all of the above tests/consultations. With regard to her hip and shoulder, patient appears improved from last examination from this author. Patient noted to be alert and oriented x 3. She is again anxious regarding her discharge and expresses anxiety regarding having to go to "prison with old people". Right shoulder in slingshot sling. Incision healing appropriately. Bandaid noted over superior shoulder. Sensation intact. No tenderness to palpation. Wrist motion intact. Wire Drawer strength intact. Radial pulses 2+. Right hip incision greatly improved. Continued erythema extending from wound margins superior and distal appx 2cm. Scabbing to anterior incision. Posterior incision appears sealed with decreased gapping. No drainage noted. No palpable induration or fluctuance. No expressed drainage. Mild tenderness to palpation. Knee motion intact. Ankle motion intact. 1+ pitting edema to RLE from foot to just above knee. Faint erythema noted to RLE in area of swelling - much improved to . Mild calf tenderness bilaterally. Neurovascularly itnact. Sensation intact. Patient noted to have b/l LE elevated. s/p right bharat hip 11/08/18 s/p revision humeral component right total shoulder replacement reverse with fracture fixation 11/08/18 lumbar stenosis scoliosis cellulitis right groin pain difficulty walking The above as mentioned re: Dr. Flynn's assessment and recommendations will be arranged. With regard to right shoulder: continue no shoulder motion, nonweightbearing, apply sling at all times - remove for hygiene only; keep incision clean and dry; notify provider with any concerns regarding drainage or incision disruption With regard to right hip: incision care including daily cleansing and keep clean and dry, avoid excessive hip motion, PT/OT, WBAT with hemiwalker Right leg cellulitis: continue antibiotics as per hospitalist team Patient and I discussed her likely need for long-term and rehabilitation. She expresses numerous times that her " can't take care of me" and therefore she will be unable to return home upon discharge. She is again reluctant to "go to prison". We discussed that social work is involved in her care and they would be assisting in getting her set up with appropriate care. We will continue to follow patient. Please reach out with any concerns or questions regarding patient's orthopedic care. Objective Vital signs: Vital Signs Temp Pulse Resp BP Pulse Ox 12/13/18 06:49 98.5 F 79 16 113/65 94 12/13/18 05:55 18 91 12/13/18 05:40 98.8 F 76 20 113/69 90 08/28/19 23:44 97.7 F 79 16 126/64 91 12/12/18 20:29 93 12/12/18 18:55 97.6 F 73 15 109/63 93 Intake and Output 12/12/18 12/13/18 12/13/18 23:59 07:59 15:59 Intake Total 250 / 980 730 / 980 Output Total 2700 / 3700 850 / 850 Balance -2700 / -2990 -600 / 130 730 / 130 Intake: IV Fluids 250 / 500 250 / 500 Vancocin 1,000 MG In 0.9 % 250 / 500 250 / 500 Sodium Chloride 250 ML @ 167 mls/hr IVPB Q12H [facility] Rx#: [id number] Oral 480 / 480 Output: Catheter 2700 / 3700 850 / 850 Other: Meal Breakfast Percent of Meal Consumed 75% Weight 68.2 kg Patient Weight 12/13/18 23:59 Weight 68.2 kg - Labs CBC & BMP: 12/12/18 06:15 12/14/18 02:17 Labs: Abnormal lab results RBC 3.72 M/mcL (3.82-4.97) L 12/12/18 06:15 Sodium 131 mEq/L (136-145) L 12/13/18 04:54 Chloride 94 mEq/L (98-107) L 12/13/18 04:54 Creatinine 0.55 mg/dL (0.60-1.20) L 12/10/18 21:45 Calculated Osmolality 271 (280-300) L 12/13/18 04:54 C-Reactive Protein 26 mg/L (Less than 10) H 12/10/18 21:45 Vancomycin Trough 13 mcg/mL (5-10) H 12/12/18 18:10 Consult Discharge Plan - Plan Referrals: Mani Stock MD [Partnered Physician] - 12/19/18 3:35 pm NONE,PCP [Primary Care Provider] - Prescriptions: HYDROcodone/Acet 5/325 mg [[place] 5-325 mg] 1 tab PO Q6HR PRN 5 Days #20 tablet PRN Reason: Severe Pain
--- NOTE | 2018-12-13 16:24 | Internal Med Progress Note ---
Hospitalist Progress Note - Encounter Date of Encounter: 12/13/18 Time of Encounter: 11:00 - Subjective Interval History: Patient was seen at bedside. Mild improvement in the pain in the right hip, back, right flank. Denies fever, chills, rigors. Denies chest pain or shortness of breath. Denied any discharge from the right hip incision site. No plan for the surgery at this point. - Exam Vitals: Temp Pulse Resp BP Pulse Ox 98.5 F 79 16 113/65 94 12/13/18 06:49 12/13/18 06:49 12/13/18 06:49 12/13/18 06:49 12/13/18 06:49 Exam: General: Alert and oriented, no physical distress, able to follow commands. HEENT: No thyromegaly, no lymphadenopathy, no discharge. Eyes: No discharge. Normal conjuctiva, no icterus Respiratory: Normal vesicular breathing, no added sounds, breathing equal in both sides. CVS: Normal heart sounds, no murmurs, regular rhthm, no edema Extremities: No peripheral edema, peripheral pulses intact. RIght shoulder in sling. Right hip incision without any disharge. No redness or tenderness appreciated. ROM limited due to pain. Right lower extremtiy red, warm, tender, swelled as comapred to left, no wound or ulcers appreciated. Looking better than yesterday exam. No discharge noted. ROM around right knee normal. Lymph nodes: No lymphadenopathy Gastrointestinal: Soft, nontender abdomen, normal abdominal sounds. No dist ention noted. Genitourinary: No paravertebral tenderness. Skin: No rash, ulcers or wound. Neurological: Alert and oriented. No focal deficits. Cranial nerves II-XII intact. - Assessment and Plan (1) Cellulitis of right leg Current Visit: Yes Status: Acute Assessment and Plan: Right leg examination concerning for cellulitis. Improving Duplex scans are negative for DVT. Currently on vancomycin Considering history of multiple admissions, continue vancomycin, PT/OT. (2) Right hip pain Current Visit: Yes Status: Acute Assessment and Plan: Pain started after the physical therapy. Patient mentioned that she is unable to bear weight on the right hip as it causes severe sharp shooting pain. No recent trauma or fall. She recently had infection of the incision site. Incision site looks clean at this point. Does not seem to be infected. CT scan of the hip joint was done which showed right hip hemiarthroplasty without any evidence of postoperative complication. Small superficial hematoma with no gas bubbles to indicate an infection. Examination benign. Ortho on board. No surgical intervention at this point. Pain management PT/OT. (3) Closed right hip fracture Current Visit: No Status: Acute Assessment and Plan: s/p Right hip hemiarthroplasty on 11/08/[address] scan findings mentioned. No surgical site infection No intervention at this point (4) Hypothyroidism Current Visit: No Status: Chronic Assessment and Plan: Continue home dose of levothyroxine. (5) Anxiety and depression Current Visit: No Status: Chronic Assessment and Plan: Continue on paroxetine (6) DVT prophylaxis Current Visit: No Status: Acute Assessment and Plan: Heparin SQ (7) Alcohol abuse Current Visit: No Status: Chronic Assessment and Plan: Patient has been on Librium for alcohol withdrawal. Continue (8) COPD (chronic obstructive pulmonary disease) Current Visit: No Status: Suspected Assessment and Plan: History of COPD not on oxygen. Uses albuterol PRN. Not in exacerbation -Continue as needed breathing Treatments (9) Lumbar stenosis Current Visit: Yes Status: Acute Assessment and Plan: There were concerns that the patient hip pain and lower extremity pain could be because of lumbar spine arthritis or stenosis. MRI of the lumbar spine was done which showed osteoarthritis with severe spinal canal stenosis at L3-L4 and L4-L5 with moderate stenosis at L2-L3. Dextroscoliosis of the lumbar spine. Spine surgeon consult placed. Appreciate recommendations. PT/OT. - Summary of Assessment and Plan Summary of Assessment and Plan: Can be dsicharged from medical point of view. Awaiting placement - Time Spent with Patient Total time spent is greater than 50% in coordination of care (as documented) at patient's floor/unit and/or counseling patient: Internal Medicine: Result - Labs CBC & Chem 7: 12/12/18 06:15 12/13/18 04:54 Labs: BMP 12/13/18 04:54 Sodium 131 L Potassium 4.1 Chloride 94 L Carbon Dioxide 29 BUN 10 Creatinine 0.74 Glucose 98 Calcium 8.9 Consult Discharge Plan - Plan Referrals: NONE,PCP [Primary Care Provider] - (3) Closed right hip fracture Qualifiers: Encounter type: subsequent encounter Fracture healing: with routine healing Qualified Code(s): S72.001D - Fracture of unspecified part of neck of right femur, subsequent encounter for closed fracture with routine healing (4) Hypothyroidism Qualifiers: Hypothyroidism type: unspecified Qualified Code(s): E03.9 - Hypothyroidism, unspecified (8) COPD (chronic obstructive pulmonary disease) Qualifiers: COPD type: unspecified COPD Qualified Code(s): J44.9 - Chronic obstructive pulmonary disease, unspecified (9) Lumbar stenosis Qualifiers: Neurogenic claudication status: unspecified Qualified Code(s): M48.061 - Spinal stenosis, lumbar region without neurogenic claudication
[2018-12-14 03:07] LABS: BUN/Creatinine Ratio 15 (6-26); Blood Urea Nitrogen 9 mg/dL (8-23); Calcium 8.7 mg/dL (8.6-10.3); Carbon Dioxide 27 mEq/L (23-29); Chloride 95 mEq/L (98-107); Glucose 105 mg/dL (70-105); Osmolality,Calculated 265 (280-300); Potassium 3.7 mEq/L (3.5-5.1); Sodium 128 mEq/L (136-145); eGFR For African Americans > 60 (> 60); eGFR For Non-African Americans > 60 (> 60)
[2018-12-14] MEDS: *HR* Heparin 5,000 UNIT/ML VIAL SQ SCH ×2 (07:07→14:34)
[2018-12-14] MEDS: *HR* OxyCODONE Immed Rel 5 MG TABLET PO PRN ×2 (08:20→14:34)
--- NOTE | 2018-12-14 13:32 | Internal Med Progress Note ---
Hospitalist Progress Note - Encounter Date of Encounter: 12/14/18 Time of Encounter: 09:45 - Subjective Interval History: Seen at bedside. Still mentions pain in the right hip, back, right flank, leg. Denies fever, chills, rigors. Denies chest pain or shortness of breath. Denies any discharge from the right hip incision site. No surgical interventions are planned at this point. - Exam Vitals: Temp Pulse Resp BP Pulse Ox 98.5 F 81 16 109/57 96 12/14/18 10:25 12/14/18 10:25 12/14/18 10:25 12/14/18 10:25 12/14/18 10:25 Exam: General: Alert and oriented, no physical distress, able to follow commands. Respiratory: Normal vesicular breathing, no added sounds, breathing equal in both sides. CVS: Normal heart sounds, no murmurs, regular rhthm, no edema Extremities: No peripheral edema, peripheral pulses intact. RIght shoulder in sling. Right hip incision without any disharge. No redness or tenderness appreciated. ROM limited due to pain. Right lower extremtiy mildly erythematous today, nontender, looking better than yesterday. No discharge noted. ROM around right knee normal. Gastrointestinal: Soft, nontender abdomen, normal abdominal sounds. No distention noted. Genitourinary: No paravertebral tenderness. Skin: Cellulitis improving. Neurological: Alert and oriented. No focal deficits. Cranial nerves II-XII intact. - Assessment and Plan (1) Cellulitis of right leg Current Visit: Yes Status: Acute Assessment and Plan: Right leg examination concerning for cellulitis. Improving Duplex scans are negative for DVT. Currently on vancomycin Considering history of multiple admissions, and hx of prosthetic knee joint, we will continue to cover for MRSA, switch to Augmentin and doxycycline for 3 more days PT/OT. (2) Right hip pain Current Visit: Yes Status: Acute Assessment and Plan: Pain started after the physical therapy. Patient mentioned that she is unable to bear weight on the right hip as it causes severe sharp shooting pain. No recent trauma or fall. She recently had infection of the incision site. Incision site looks clean at this point. Does not seem to be infected. CT scan of the hip joint was done which showed right hip hemiarthroplasty without any evidence of postoperative complication. Small superficial hematoma with no gas bubbles to indicate an infection. Examination benign. Ortho on board. No surgical intervention at this point. Pain management PT/OT. (3) Closed right hip fracture Current Visit: No Status: Acute Assessment and Plan: s/p Right hip hemiarthroplasty on 11/08/[address] scan findings mentioned. No surgical site infection No intervention at this point (4) Hypothyroidism Current Visit: No Status: Chronic Assessment and Plan: Continue home dose of levothyroxine. (5) Anxiety and depression Current Visit: No Status: Chronic Assessment and Plan: Continue on paroxetine (6) DVT prophylaxis Current Visit: No Status: Acute Assessment and Plan: Heparin SQ (7) Alcohol abuse Current Visit: No Status: Chronic Assessment and Plan: Patient has been on Librium for alcohol withdrawal. Continue (8) COPD (chronic obstructive pulmonary disease) Current Visit: No Status: Suspected Assessment and Plan: History of COPD not on oxygen. Uses albuterol PRN. Not in exacerbation -Continue as needed breathing Treatments (9) Lumbar stenosis Current Visit: Yes Status: Acute Assessment and Plan: There were concerns that the patient hip pain and lower extremity pain could be because of lumbar spine arthritis or stenosis. MRI of the lumbar spine was done which showed osteoarthritis with severe spinal canal stenosis at L3-L4 and L4-L5 with moderate stenosis at L2-L3. Dextroscoliosis of the lumbar spine. Spine surgeon consult placed. Appreciate recommendations. PT/OT. - Time Spent with Patient Total time spent is greater than 50% in coordination of care (as documented) at patient's floor/unit and/or counseling patient: Internal Medicine: Result - Labs CBC & Chem 7: 12/12/18 06:15 12/14/18 02:17 Labs: BMP 12/14/18 02:17 Sodium 128 L Potassium 3.7 Chloride 95 L Carbon Dioxide 27 BUN 9 Creatinine 0.62 Glucose 105 Calcium 8.7 Consult Discharge Plan - Plan Referrals: NONE,PCP [Primary Care Provider] - (3) Closed right hip fracture Qualifiers: Encounter type: subsequent encounter Fracture healing: with routine healing Qualified Code(s): S72.001D - Fracture of unspecified part of neck of right femur, subsequent encounter for closed fracture with routine healing (4) Hypothyroidism Qualifiers: Hypothyroidism type: unspecified Qualified Code(s): E03.9 - Hypothyroidism, unspecified (8) COPD (chronic obstructive pulmonary disease) Qualifiers: COPD type: unspecified COPD Qualified Code(s): J44.9 - Chronic obstructive pulmonary disease, unspecified (9) Lumbar stenosis Qualifiers: Neurogenic claudication status: unspecified Qualified Code(s): M48.061 - Spinal stenosis, lumbar region without neurogenic claudication
[2018-12-14 15:50] LABS: Sodium, Urine 30.8 mEq/L
--- NOTE | 2018-12-14 17:18 | Discharge Summary ---
- NOTES TO OUTPATIENT PROVIDER Notes to Outpatient Provider: Came with the right hip pain. No interventiosn done, Found to have cellulitis,3 more days of oral antibioitcs. Orders not resulted at time of discharge: Pending orders 12/10/18 21:45 Culture,Blood [BC] Stat 12/11/18 06:24 Culture,Wound [RM] Routine Date of Encounter: 12/14/18 Time of Encounter: 10:00 - Discharge Diagnosis (1) Cellulitis of right leg Priority: Primary Status: Acute (2) Right hip pain Priority: Secondary Status: Acute (3) Closed right hip fracture Priority: Secondary Status: Acute Qualifiers: Encounter type: subsequent encounter Fracture healing: with routine healing Qualified Code(s): S72.001D - Fracture of unspecified part of neck of right femur, subsequent encounter for closed fracture with routine healing (4) Hypothyroidism Priority: Secondary Status: Chronic Qualifiers: Hypothyroidism type: unspecified Qualified Code(s): E03.9 - Hypothyroidism, unspecified (5) Anxiety and depression Priority: Secondary Status: Chronic (6) DVT prophylaxis Priority: Secondary Status: Acute (7) Alcohol abuse Priority: Secondary Status: Chronic (8) COPD (chronic obstructive pulmonary disease) Priority: Secondary Status: Suspected Qualifiers: COPD type: unspecified COPD Qualified Code(s): J44.9 - Chronic obstructive pulmonary disease, unspecified (9) Lumbar stenosis Priority: Secondary Status: Acute Qualifiers: Neurogenic claudication status: unspecified Qualified Code(s): M48.061 - Spinal stenosis, lumbar region without neurogenic claudication Hospital course: Ms. Hernandez is a 63 year old female with a past medical history significant for COPD, hypothyroidism, anxiety presented to the hospital with a pain of right hip and inability to ambulate. Patient recently had a surgery for the right hip and she was undergoing physical therapy. CT scan of the right hip was done which did not show any abnormalities. Of note, patient also was treated for right hip incision infection. No interventions were done regarding right hip joint. Physical examination showed cellulitis of the right lower extremity. No involvement of the joint. She was started on vancomycin for cellulitis. Her symptoms improved with vancomycin. Today she was switched to Augmentin and doxycycline to be continued for 3 more days. She is currently hemodynamically stable and is being discharged to home rehabilitation as per instruction of PT/OT. Patient also got MRI of the back done because there were concerns that her hip pain could be related to spine problems. MRI of the lumbar spine was done which showed osteoarthritis with severe spinal canal stenosis at L3-L4 and L4-L5 with moderate stenosis at L2-L3. Dextroscoliosis of the lumbar spine. Spine surgery recommended conservative management. Patient will need outpatient follow-up with orthopedic and spine surgeon. Patient is being discharged in stable condition today. - Time Spent with Patient Total time spent providing and/or coordinating discharge services: 35 minutes - Discharge Medications Prescriptions: New Amoxicillin/Clavulanate [Augmentin] 875 mg PO BIDWM 3 Days tablet Doxycycline 100 mg PO BID 3 Days capsule HYDROcodone/Acet 5/325 mg [[place] 5-325 mg] 1 tab PO Q6HR PRN 5 Days #20 tablet PRN Reason: Severe Pain Continued Paroxetine [Paxil] 30 mg PO DAILY Acetaminophen [Tylenol] 325 - 650 mg PO Q4H PRN PRN Reason: Pain Levothyroxine Sodium [Synthroid] 137 mcg PO DAILY Albuterol Sulfate [Ventolin Hfa] 1 puff IH Q4H PRN PRN Reason: Shortness Of Breath Aspirin 325 mg PO DAILY PRN PRN Reason: Pain Melatonin 6 mg PO HS PRN PRN Reason: Sleep Chlordiazepoxide [Librium] 10 mg PO TID Home Medications: Paroxetine [Paxil] 30 mg PO DAILY 04/23/18 [History] Acetaminophen [Tylenol] 325 - 650 mg PO Q4H PRN 11/09/18 [History] Albuterol Sulfate [Ventolin Hfa] 1 puff IH Q4H PRN 11/09/18 [History] Levothyroxine Sodium [Synthroid] 137 mcg PO DAILY 11/09/18 [History] Chlordiazepoxide [Librium] 10 mg PO TID 11/20/18 [History] Aspirin 325 mg PO DAILY PRN 12/10/18 [History] Melatonin 6 mg PO HS PRN 12/11/18 [History] Amoxicillin/Clavulanate [Augmentin] 875 mg PO BIDWM 3 Days tablet 12/14/18 [Rx] Doxycycline 100 mg PO BID 3 Days capsule 12/14/18 [Rx] HYDROcodone/Acet 5/325 mg [[place] 5-325 mg] 1 tab PO Q6HR PRN 5 Days #20 tablet 12/14/18 [Rx] Allergies/Adverse Reactions: Allergy/AdvReac Type Severity Reaction Status Date / Time levofloxacin [From Levaquin] Allergy Anaphylaxis Verified 12/11/18 08:26 Date of admission: 12/11/18 01:15 Primary care physician: PCP NONE Consults: 12/11/18 00:05 Consult to Orthopedic Surgery [CONS] Stat Consulting Provider: Fadi Flynn Jr Reason for Consult: spinal stenosis Time Notified: 11:30 Call Completed: Yes 12/11/18 10:39 Consult to Developer Relations Manager [CONS] Routine Reason for SW Consult: discharge planning 12/12/18 09:53 Consult to Occupational Therapy [CONS] Stat Comment: Evaluate, develop and implement POC Reason for Consult: history of falls, recent history of right TSR reverse AND right hip bharat Does patient have active BEDREST order?: No Is patient medically & hemodynamically stable?: Yes Consult to Physical Therapy [CONS] Stat Comment: Evaluate, develop and implement POC Reason for Consult: history of falls, recent history of right TSR reverse AND right hip bharat Does patient have active BEDREST order?: No Is patient medically & hemodynamically stable?: Yes 12/14/18 13:27 Consult to Nutrition [CONS] Routine Comment: Consulting Provider: NUTRITION Reason for Dietary Consult: PO Supplementation - Constitutional Vitals: Temp Pulse Resp BP Pulse Ox 98.5 F 81 16 109/57 96 12/14/18 10:25 12/14/18 10:25 12/14/18 10:25 12/14/18 10:25 12/14/18 10:25 General appearance: Present: A&O X 3, no acute distress Exam: General: Alert and oriented, no physical distress, able to follow commands. Respiratory: Normal vesicular breathing, no added sounds, breathing equal in both sides. CVS: Normal heart sounds, no murmurs, regular rhthm, no edema Extremities: No peripheral edema, peripheral pulses intact. RIght shoulder in sling. Right hip incision without any disharge. No redness or tenderness appreciated. ROM limited due to pain. Right lower extremtiy mildly erythematous today, nontender, looking better than yesterday. No discharge noted. ROM around right knee normal. Gastrointestinal: Soft, nontender abdomen, normal abdominal sounds. No distention noted. Genitourinary: No paravertebral tenderness. Skin: Cellulitis improving. Neurological: Alert and oriented. No focal deficits. Cranial nerves II-XII intact. - Patient Status Disposition: Transfer SNF Condition: Good - Discharge Instructions Follow Up With: NONE,PCP [Primary Care Provider] - - Diet and Activity Activity: as per physical therapy, increase activity as tolerated Diet: advance to your usual diet
--- NOTE | 2018-12-14 17:25 | Physician Discharge Referral ---
ExtendedCare Referral Info Institutional Level of Care: Skilled - Diagnosis (1) Cellulitis of right leg Priority: Primary Status: Acute (2) Right hip pain Priority: Secondary Status: Acute (3) Closed right hip fracture Priority: Secondary Status: Acute (4) Hypothyroidism Priority: Secondary Status: Chronic (5) Anxiety and depression Priority: Secondary Status: Chronic (6) DVT prophylaxis Priority: Secondary Status: Acute (7) Alcohol abuse Priority: Secondary Status: Chronic (8) COPD (chronic obstructive pulmonary disease) Priority: Secondary Status: Suspected (9) Lumbar stenosis Priority: Secondary Status: Acute - Transfer Medications Prescriptions: HYDROcodone/Acet 5/325 mg [[place] 5-325 mg] 1 tab PO Q6HR PRN 5 Days #20 tablet PRN Reason: Severe Pain Home Medications: Paroxetine [Paxil] 30 mg PO DAILY 04/23/18 [History] Acetaminophen [Tylenol] 325 - 650 mg PO Q4H PRN 11/09/18 [History] Albuterol Sulfate [Ventolin Hfa] 1 puff IH Q4H PRN 11/09/18 [History] Levothyroxine Sodium [Synthroid] 137 mcg PO DAILY 11/09/18 [History] Chlordiazepoxide [Librium] 10 mg PO TID 11/20/18 [History] Aspirin 325 mg PO DAILY PRN 12/10/18 [History] Melatonin 6 mg PO HS PRN 12/11/18 [History] Amoxicillin/Clavulanate [Augmentin] 875 mg PO BIDWM 3 Days tablet 12/14/18 [Rx] Doxycycline 100 mg PO BID 3 Days capsule 12/14/18 [Rx] HYDROcodone/Acet 5/325 mg [[place] 5-325 mg] 1 tab PO Q6HR PRN 5 Days #20 tablet 12/14/18 [Rx] Allergies/Adverse Reactions: Allergy/AdvReac Type Severity Reaction Status Date / Time levofloxacin [From Levaquin] Allergy Anaphylaxis Verified 12/11/18 08:26 - Respiratory Orders Smoking Cessation: Smoking cessation has been advised. For more information, call the [place] Tobacco Quit Line at 5-573-XKFW-NOW. CERTIFICATION: I certify that the transfer of the above named patient to an Extended Care Facility is necessary for the continuing treatment of the diagnosis listed. The above information is true and accurate reflection of patient's current condition. Confidential - Redisclosure prohibited without a patient's written consent.
[2018-12-14 19:38] VITALS: BP 110/66
[2018-12-14] MEDS ORDERED: Aminoglycoside Consult 1 EACH MC ONE (20:37)
[2018-12-14] MEDS ORDERED: Doxycycline 100 MG CAPSULE PO SCH (21:00)
== END 2018-12-14 20:38 ==
LOC: 3NENU 19:56 → EMEROOARM 19:56 → SUATTDRO 12-11 01:15 → 3NENU 12-11 02:10
PROVIDERS: ADMIT Pediatrics; ATTEND Internal Medicine